=== PATIENT | female | born 1945 | race Two or more races ===

== ENCOUNTER → 2017-04-13 | Outpatient (CLI) | payer OTHER ==
[2017-04-13 14:28] LABS: ADD MAN DIFF? NO
[2017-04-13 14:34] LABS: BASO % 1 % (0-3); EOS # 0.1 x10^3/uL (0.0-0.7); EOS % 2 % (0-3); HEMATOCRIT 41.1 % (36.0-47.0); HEMOGLOBIN 13.8 g/dL (12.0-15.5); LYMPH # 1.1 x10^3/uL (1.0-4.8); LYMPH % 20 % (24-48); MEAN CORPUSCULAR HEMOGLOBIN 31 pg (25-35); MEAN CORPUSCULAR HGB CONC 34 g/dL (31-37); MEAN CORPUSCULAR VOLUME 91 fL (79-100); MONO # 0.6 x10^3/uL (0.0-1.1); MONO % 10 % (0-9); NEUT # 3.7 x10^3uL (1.8-7.7); NEUT % 67 % (31-73); PLATELET COUNT 211 x10^3/uL (140-400); RED BLOOD COUNT 4.53 x10^6/uL (3.50-5.40); RED CELL DISTRIBUTION WIDTH 13.9 % (11.5-14.5); WHITE BLOOD COUNT 5.5 x10^3/uL (4.0-11.0)
[2017-04-13 14:55] LABS: ALBUMIN 3.8 g/dL (3.4-5.0); ALBUMIN/GLOBULIN RATIO 0.9 (1.0-1.7); ALK PHOS 83 U/L (46-116); ALT (SGPT) 23 U/L (14-59); ANION GAP 9 (6-14); AST (SGOT) 18 U/L (15-37); BLOOD UREA NITROGEN 20 mg/dL (7-20); BUN/CREATININE RATIO 33 (6-20); CALCIUM 9.6 mg/dL (8.5-10.1); CARBON DIOXIDE 28 mmol/L (21-32); CHLORIDE 102 mmol/L (98-107); CREATININE 0.6 mg/dL (0.6-1.0); GFR 97.7; GLUCOSE 101 mg/dL (70-99); SODIUM 139 mmol/L (136-145); TOTAL BILIRUBIN 0.4 mg/dL (0.2-1.0); TOTAL PROTEIN 7.9 g/dL (6.4-8.2)
[2017-04-13 15:06] LABS: THYROID STIM HORMONE (TSH) 1.204 uIU/mL (0.358-3.74)
== END | disposition home or self-care (01) ==
LOC: LAB 14:15
DX: K62.5 Hemorrhage of anus and rectum (principal); R53.83 Other fatigue
CPT/HCPCS: 36415; 80053; 84443; 85025

== ENCOUNTER → 2017-05-06 | Outpatient (CLI) | payer OTHER, MEDICARE | END | disposition home or self-care (01) | LOC: MAMMO 09:45 | DX: Z12.31 Encounter for screening mammogram for malignant neoplasm of breast (principal) | CPT/HCPCS: 77063; 77067 ==

== ENCOUNTER 2017-07-02 07:13 | Inpatient (IN) | payer OTHER, MEDICARE ==
[2017-07-02 07:44] LABS: ADD MAN DIFF? NO
[2017-07-02 07:46] LABS: BASO % 1 % (0-3); EOS % 1 % (0-3); HEMATOCRIT 36.8 % (36.0-47.0); HEMOGLOBIN 12.5 g/dL (12.0-15.5); LYMPH # 0.4 x10^3/uL (1.0-4.8); LYMPH % 8 % (24-48); MEAN CORPUSCULAR HEMOGLOBIN 31 pg (25-35); MEAN CORPUSCULAR HGB CONC 34 g/dL (31-37); MEAN CORPUSCULAR VOLUME 90 fL (79-100); MONO # 0.6 x10^3/uL (0.0-1.1); MONO % 10 % (0-9); NEUT # 4.6 x10^3uL (1.8-7.7); NEUT % 81 % (31-73); PLATELET COUNT 197 x10^3/uL (140-400); RED CELL DISTRIBUTION WIDTH 13.7 % (11.5-14.5); WHITE BLOOD COUNT 5.7 x10^3/uL (4.0-11.0)
[2017-07-02 07:52] LABS: ANION GAP 10 (6-14); BLOOD UREA NITROGEN 16 mg/dL (7-20); BUN/CREATININE RATIO 23 (6-20); CALCIUM 8.4 mg/dL (8.5-10.1); CARBON DIOXIDE 27 mmol/L (21-32); CHLORIDE 105 mmol/L (98-107); CREATININE 0.7 mg/dL (0.6-1.0); GFR 81.8; GLUCOSE 118 mg/dL (70-99); POTASSIUM 3.6 mmol/L (3.5-5.1); SODIUM 142 mmol/L (136-145)
[2017-07-02 07:57] LABS: ALBUMIN/GLOBULIN RATIO 0.7 (1.0-1.7); ALK PHOS 83 U/L (46-116); ALT (SGPT) 45 U/L (14-59); AST (SGOT) 22 U/L (15-37); TOTAL BILIRUBIN 0.3 mg/dL (0.2-1.0); TOTAL PROTEIN 7.2 g/dL (6.4-8.2)
[2017-07-02 08:00] LABS: TROPONINI < 0.017 ng/mL (0.000-0.055)
[2017-07-02 08:03] LABS: NT-PRO BNP 1490 pg/mL (0-124)
[2017-07-02] MEDS ORDERED: CONTRAST GIVEN MC (08:15)
[2017-07-02] MEDS: IOHEXOL 300 MG/ML 100ML VIAL. IV (08:23)
[2017-07-02 08:53] LABS: INR 1.1 (0.8-1.1); PARTIAL THROMBOPLASTIN TIME 30 SEC (24-38); PROTHROMBIN TIME PATIENT 13.8 SEC (11.7-14.0)
[2017-07-02 09:17] LABS: BILIRUBIN,URINE NEGATIVE (NEG); CLARITY,URINE CLEAR; COLOR,URINE YELLOW; GLUCOSE,URINE 100 mg/dL (NEG); NITRITE,URINE NEGATIVE (NEG); PH,URINE 5.5; PROTEIN,URINE NEGATIVE (NEG-TRACE); UROBILINOGEN,URINE 0.2 mg/dL (0.2 mg/dL)
[2017-07-02 09:33] LABS: BACTERIA,URINE 0 /HPF (0-FEW); RBC,URINE 0 /HPF (0-2); SQUAMOUS EPITHELIAL CELL,UR MANY /LPF; WBC,URINE 0 /HPF (0-4)
[2017-07-02] MEDS ORDERED: ONDANSETRON PF 4 MG/2 ML VIAL. IV (10:00)
[2017-07-02] MEDS ORDERED: fentaNYL PF VIAL 100 MCG/2 ML VIAL IV (10:00)
[2017-07-02] MEDS ORDERED: ACETAMINOPHEN 325 MG TABLET. PO (10:00)
[2017-07-02 13:26] LABS: TROPONINI 0.022 ng/mL (0.000-0.055)
[2017-07-02] MEDS ORDERED: MORPHINE SULFATE 4 MG/ML DISP.SYRIN. IV (13:45)
[2017-07-02] MEDS ORDERED: DOCUSATE SODIUM 100 MG CAPSULE. PO (13:45)
[2017-07-02] MEDS ORDERED: hydrALAZINE 20 MG/ML VIAL. IVP (13:45)
[2017-07-02] MEDS ORDERED: ALBUTEROL SULFATE 2.5 MG/3 ML NEBU. NEB (13:45)
[2017-07-02] MEDS ORDERED: ALPRAZolam 0.25 MG TABLET PO (14:15)
[2017-07-02] MEDS: ENOXAPARIN 40 MG/0.4 ML SYRINGE. SQ (14:33)
[2017-07-02] MEDS: METOPROLOL TARTRATE 5 MG/5 ML VIAL. IVP (14:34)
[2017-07-02] MEDS: GADOBUTROL 7.5 MMOL/7.5 ML VIAL IV (15:47)
[2017-07-02] MEDS: IPRATRPIUM/ALBUTEROL 0.5/2.5MG 3 ML NEBU. NEB ×2 (16:10→19:40)
[2017-07-02] MEDS: traMADol 50 MG TABLET PO (16:11)
[2017-07-02 17:51] LABS: TROPONINI 0.021 ng/mL (0.000-0.055)
[2017-07-02] MEDS: METOPROLOL TART IMMED RELEASE 25 MG TABLET. PO (20:25)
[2017-07-02] MEDS: POLYETHYLENE GLYCOL 3350 17 GM PACKET. PO (20:25)
[2017-07-02] MEDS ORDERED: METOPROLOL TART IMMED RELEASE 25 MG TABLET. PO (21:00)
[2017-07-03 04:47] LABS: ADD MAN DIFF? NO
[2017-07-03 04:52] LABS: BASO % 1 % (0-3); EOS % 1 % (0-3); HEMATOCRIT 33.2 % (36.0-47.0); HEMOGLOBIN 11.4 g/dL (12.0-15.5); LYMPH # 0.6 x10^3/uL (1.0-4.8); LYMPH % 13 % (24-48); MEAN CORPUSCULAR HEMOGLOBIN 31 pg (25-35); MEAN CORPUSCULAR HGB CONC 35 g/dL (31-37); MEAN CORPUSCULAR VOLUME 90 fL (79-100); MONO # 0.6 x10^3/uL (0.0-1.1); MONO % 13 % (0-9); NEUT # 3.5 x10^3uL (1.8-7.7); NEUT % 72 % (31-73); PLATELET COUNT 182 x10^3/uL (140-400); RED CELL DISTRIBUTION WIDTH 13.3 % (11.5-14.5); WHITE BLOOD COUNT 4.9 x10^3/uL (4.0-11.0)
[2017-07-03 05:09] LABS: ANION GAP 9 (6-14); BLOOD UREA NITROGEN 11 mg/dL (7-20); CALCIUM 7.8 mg/dL (8.5-10.1); CARBON DIOXIDE 28 mmol/L (21-32); CHLORIDE 104 mmol/L (98-107); CREATININE 0.6 mg/dL (0.6-1.0); GFR 97.7; GLUCOSE 121 mg/dL (70-99); POTASSIUM 3.9 mmol/L (3.5-5.1); SODIUM 141 mmol/L (136-145)
[2017-07-03 05:28] LABS: THYROID STIM HORMONE (TSH) 1.223 uIU/mL (0.358-3.74)
[2017-07-03] MEDS: METOPROLOL TART IMMED RELEASE 25 MG TABLET. PO ×3 (07:04→23:27)
[2017-07-03] MEDS: IPRATRPIUM/ALBUTEROL 0.5/2.5MG 3 ML NEBU. NEB ×4 (08:10→20:03)
[2017-07-03] MEDS: POLYETHYLENE GLYCOL 3350 17 GM PACKET. PO ×2 (08:33→21:08)
[2017-07-03] MEDS: ENOXAPARIN 40 MG/0.4 ML SYRINGE. SQ (08:38)
[2017-07-03] MEDS: traMADol 50 MG TABLET PO (08:39)
[2017-07-03] MEDS: ONDANSETRON PF 4 MG/2 ML VIAL. IV (08:47)
[2017-07-03] MEDS: METOPROLOL TARTRATE 5 MG/5 ML VIAL. IVP (09:34)
[2017-07-03 10:03] LABS: MAGNESIUM 1.9 mg/dL (1.8-2.4)
[2017-07-03] MEDS: IOHEXOL 240 MG/ML 50ML VIAL. PO (10:15)
[2017-07-03] MEDS ORDERED: CONTRAST GIVEN MC (10:15)
[2017-07-03] MEDS: IOHEXOL 300 MG/ML 100ML VIAL. IV (11:32)
[2017-07-03] MEDS: PROCHLORPERAZINE 10 MG/2 ML VIAL. IV (11:52)
[2017-07-03] MEDS: DIGOXIN IV 500 MCG/2 ML AMPUL. IV (11:53)
[2017-07-03] MEDS: FUROSEMIDE 40 MG/4 ML VIAL. IVP (15:48)
[2017-07-03] MEDS: ASPIRIN ENTERIC COATED 325 MG TABLET.DR. PO (15:49)
[2017-07-04] MEDS: METOPROLOL TART IMMED RELEASE 25 MG TABLET. PO ×3 (06:32→18:04)
[2017-07-04 07:24] LABS: ADD MAN DIFF? NO
[2017-07-04 07:32] LABS: BASO % 1 % (0-3); EOS # 0.1 x10^3/uL (0.0-0.7); EOS % 2 % (0-3); HEMATOCRIT 36.7 % (36.0-47.0); HEMOGLOBIN 12.3 g/dL (12.0-15.5); LYMPH # 0.5 x10^3/uL (1.0-4.8); LYMPH % 9 % (24-48); MEAN CORPUSCULAR HEMOGLOBIN 30 pg (25-35); MEAN CORPUSCULAR HGB CONC 34 g/dL (31-37); MEAN CORPUSCULAR VOLUME 90 fL (79-100); MONO # 0.5 x10^3/uL (0.0-1.1); MONO % 11 % (0-9); NEUT # 3.7 x10^3uL (1.8-7.7); NEUT % 77 % (31-73); PLATELET COUNT 208 x10^3/uL (140-400); RED BLOOD COUNT 4.06 x10^6/uL (3.50-5.40); RED CELL DISTRIBUTION WIDTH 13.8 % (11.5-14.5); WHITE BLOOD COUNT 4.8 x10^3/uL (4.0-11.0)
[2017-07-04 07:51] LABS: ANION GAP 8 (6-14); BLOOD UREA NITROGEN 14 mg/dL (7-20); CALCIUM 8.2 mg/dL (8.5-10.1); CARBON DIOXIDE 31 mmol/L (21-32); CHLORIDE 101 mmol/L (98-107); CREATININE 0.8 mg/dL (0.6-1.0); GFR 70.1; GLUCOSE 125 mg/dL (70-99); POTASSIUM 3.5 mmol/L (3.5-5.1); SODIUM 140 mmol/L (136-145)
[2017-07-04] MEDS: IPRATRPIUM/ALBUTEROL 0.5/2.5MG 3 ML NEBU. NEB ×4 (08:04→20:39)
[2017-07-04] MEDS: POLYETHYLENE GLYCOL 3350 17 GM PACKET. PO ×2 (09:00→21:00)
[2017-07-04] MEDS: ENOXAPARIN 40 MG/0.4 ML SYRINGE. SQ (09:00)
[2017-07-04] MEDS: LIDOCAINE 2%/EPI 1:100,000 20 ML VIAL. IJ (09:30)
[2017-07-04] MEDS: REGADENOSON 0.4 MG/5 ML DISP.SYRIN. IV (10:48)
[2017-07-04] MEDS: ASPIRIN ENTERIC COATED 325 MG TABLET.DR. PO (13:33)
[2017-07-04] MEDS: FUROSEMIDE 40 MG/4 ML VIAL. IVP (13:45)
[2017-07-04 14:41] LABS: CHOLESTEROL 131 mg/dL (0-200); HDLC 39 mg/dL (40-60); LDLC 81 mg/dL (0-100); NON-HDL CHOLESTEROL 92 mg/dL (0-129); TRIGLYCERIDES 57 mg/dL (0-150); VLDLC 11 mg/dL (0-40)
[2017-07-04 14:42] LABS: CHOLESTEROL/HDL RATIO 3.4
[2017-07-04] MEDS: DIGOXIN IV 500 MCG/2 ML AMPUL. IV (18:04)
[2017-07-04] MEDS: APIXABAN 5 MG TABLET. PO (21:00)
[2017-07-05] MEDS: IPRATRPIUM/ALBUTEROL 0.5/2.5MG 3 ML NEBU. NEB ×4 (08:00→20:00)
[2017-07-05] MEDS: APIXABAN 5 MG TABLET. PO ×2 (08:17→19:11)
[2017-07-05] MEDS: POLYETHYLENE GLYCOL 3350 17 GM PACKET. PO ×2 (09:00→20:09)
[2017-07-05] MEDS: METOPROLOL TART IMMED RELEASE 25 MG TABLET. PO ×3 (09:27→20:08)
[2017-07-05] MEDS: ASPIRIN ENTERIC COATED 325 MG TABLET.DR. PO (09:27)
[2017-07-05] MEDS: traMADol 50 MG TABLET PO (09:27)
[2017-07-05] MEDS: FLECAINIDE ACETATE 50 MG TABLET. PO ×2 (12:28→20:09)
[2017-07-05] MEDS: ANTI-COAG MONITOR BY PHARMACY. MC (13:46)
[2017-07-05] MEDS: ACETAMINOPHEN 325 MG TABLET. PO (23:45)
[2017-07-06] MEDS ORDERED: PROCHLORPERAZINE 10 MG/2 ML VIAL. IV (07:00)
[2017-07-06] MEDS ORDERED: IV RINGERS,LACTATED 1000ML 1,000 ML IV (07:00)
[2017-07-06] MEDS ORDERED: LIDOCAINE 1% PF 2 ML VIAL. ID (07:00)
[2017-07-06] MEDS ORDERED: MORPHINE SULFATE 4 MG/ML DISP.SYRIN. IV (07:00)
[2017-07-06] MEDS ORDERED: HYDROmorphone 2 MG/ML VIAL IV (07:00)
[2017-07-06] MEDS ORDERED: fentaNYL PF VIAL 100 MCG/2 ML VIAL IV ×2 (07:00)
[2017-07-06] MEDS: IPRATRPIUM/ALBUTEROL 0.5/2.5MG 3 ML NEBU. NEB ×2 (07:52→11:53)
[2017-07-06] MEDS ORDERED: BENZOCAINE ONE 20% MUCOSAL SPRAY. MM (08:15)
[2017-07-06] MEDS: APIXABAN 5 MG TABLET. PO ×2 (09:00→12:35)
[2017-07-06] MEDS: FLECAINIDE ACETATE 50 MG TABLET. PO ×2 (09:12→12:37)
[2017-07-06] MEDS: METOPROLOL TART IMMED RELEASE 25 MG TABLET. PO (09:14)
[2017-07-06] MEDS: FUROSEMIDE 20 MG TABLET PO (09:14)
[2017-07-06] MEDS: POLYETHYLENE GLYCOL 3350 17 GM PACKET. PO (09:14)
[2017-07-06 12:22] LABS: ANION GAP 7 (6-14); BLOOD UREA NITROGEN 11 mg/dL (7-20); CALCIUM 8.5 mg/dL (8.5-10.1); CARBON DIOXIDE 31 mmol/L (21-32); CHLORIDE 102 mmol/L (98-107); CREATININE 0.7 mg/dL (0.6-1.0); GFR 81.8; GLUCOSE 114 mg/dL (70-99); SODIUM 140 mmol/L (136-145)
[2017-07-06] MEDS: LIDOCAINE 2% TOPICAL JELLY 5GM TUBE. TP (12:52)
[2017-07-06] MEDS: LIDOCAINE 2% VISCOUS 15 ML SOLUTION. SWSW (12:52)
[2017-07-06] MEDS ORDERED: FLECAINIDE ACETATE 50 MG TABLET. PO (21:00)
== END 2017-07-06 15:40 | disposition home or self-care (01) | DRG 308 ==
LOC: ER 07:13 → 6 SOUTH 09:31
PROC: 0GBG3ZX Excision of Left Thyroid Gland Lobe, Percutaneous Approach, Diagnostic (ICD-10-PCS; principal; 2017-07-04)
DX: I48.91 Unspecified atrial fibrillation (principal); I50.33 Acute on chronic diastolic (congestive) heart failure; I27.20 Pulmonary hypertension, unspecified; E44.1 Mild protein-calorie malnutrition; I08.2 Rheumatic disorders of both aortic and tricuspid valves; E04.1 Nontoxic single thyroid nodule; I11.0 Hypertensive heart disease with heart failure; R59.0 Localized enlarged lymph nodes; Z82.49 Family history of ischemic heart disease and other diseases of the circulatory system; Z68.30 Body mass index [BMI] 30.0-30.9, adult; Z87.891 Personal history of nicotine dependence; Z90.710 Acquired absence of both cervix and uterus
CPT/HCPCS: 36415; 60300; 70553; 71045; 71275; 74177; 76536; 76942; 78452; 80048; 80053; 80061; 81001; 83735; 83880; 84443; 84484; 85025; 85610; 85730; 93005; 93017; 93306; 93970; 94640; 94760; 94799; 96374; 96375; 96376; 97110-GP; 97162-GP; 97165-GO; 99285; 99285-25; A9500; A9585; J0780; J1160; J1650; J1940; J2405; J2785; J3490; J7620; Q9967

== ENCOUNTER 2017-07-07 10:34 | Emergency (ER) | payer OTHER, MEDICARE ==
[2017-07-07 11:12] LABS: ADD MAN DIFF? NO
[2017-07-07 11:15] LABS: BASO # 0.1 x10^3/uL (0.0-0.2); BASO % 1 % (0-3); EOS # 0.1 x10^3/uL (0.0-0.7); EOS % 1 % (0-3); HEMATOCRIT 38.3 % (36.0-47.0); HEMOGLOBIN 12.9 g/dL (12.0-15.5); LYMPH # 0.6 x10^3/uL (1.0-4.8); LYMPH % 7 % (24-48); MEAN CORPUSCULAR HEMOGLOBIN 30 pg (25-35); MEAN CORPUSCULAR HGB CONC 34 g/dL (31-37); MEAN CORPUSCULAR VOLUME 90 fL (79-100); MONO # 0.9 x10^3/uL (0.0-1.1); MONO % 12 % (0-9); NEUT # 6.2 x10^3uL (1.8-7.7); NEUT % 79 % (31-73); PLATELET COUNT 262 x10^3/uL (140-400); RED BLOOD COUNT 4.26 x10^6/uL (3.50-5.40); RED CELL DISTRIBUTION WIDTH 13.6 % (11.5-14.5); WHITE BLOOD COUNT 7.9 x10^3/uL (4.0-11.0)
[2017-07-07 11:24] LABS: ANION GAP 11 (6-14); BLOOD UREA NITROGEN 21 mg/dL (7-20); BUN/CREATININE RATIO 30 (6-20); CARBON DIOXIDE 27 mmol/L (21-32); CHLORIDE 100 mmol/L (98-107); CREATININE 0.7 mg/dL (0.6-1.0); GFR 81.8; GLUCOSE 123 mg/dL (70-99); POTASSIUM 4.2 mmol/L (3.5-5.1); SODIUM 138 mmol/L (136-145)
[2017-07-07 11:29] LABS: ALBUMIN 3.1 g/dL (3.4-5.0); ALBUMIN/GLOBULIN RATIO 0.7 (1.0-1.7); ALK PHOS 76 U/L (46-116); ALT (SGPT) 78 U/L (14-59); AST (SGOT) 36 U/L (15-37); MAGNESIUM 2.1 mg/dL (1.8-2.4); TOTAL BILIRUBIN 0.4 mg/dL (0.2-1.0); TOTAL PROTEIN 7.4 g/dL (6.4-8.2)
[2017-07-07 11:31] LABS: TROPONINI < 0.017 ng/mL (0.000-0.055)
[2017-07-07 11:37] LABS: CKMB INDEX 2.3 % (0-4); CKMB MASS 2.1 ng/mL (0.0-3.6); CREATINE KINASE 93 U/L (26-192)
[2017-07-07] MEDS: FUROSEMIDE 40 MG/4 ML VIAL. IVP (12:29)
== END 2017-07-07 15:00 | disposition home or self-care (01) ==
LOC: ER 10:34
DX: R00.2 Palpitations (principal); R06.02 Shortness of breath; I48.91 Unspecified atrial fibrillation; I11.0 Hypertensive heart disease with heart failure; I50.9 Heart failure, unspecified
CPT/HCPCS: 36415; 71045; 80053; 82553; 83735; 84484; 85025; 93005; 94618; 96374; 99285-25; J1940

== ENCOUNTER → 2017-08-03 | Outpatient (CLI) | payer OTHER, MEDICARE | END | disposition home or self-care (01) | LOC: PETSC 14:01 | DX: E04.1 Nontoxic single thyroid nodule (principal); I51.7 Cardiomegaly; R91.8 Other nonspecific abnormal finding of lung field; R16.1 Splenomegaly, not elsewhere classified | CPT/HCPCS: 78815; A9552 ==

== ENCOUNTER → 2017-10-04 | Outpatient (CLI) | payer OTHER, MEDICARE ==
[2017-10-04 13:50] LABS: ADD MAN DIFF? NO
[2017-10-04 13:54] LABS: BASO % 1 % (0-3); EOS # 0.1 x10^3/uL (0.0-0.7); EOS % 3 % (0-3); HEMATOCRIT 38.6 % (36.0-47.0); LYMPH # 0.6 x10^3/uL (1.0-4.8); LYMPH % 17 % (24-48); MEAN CORPUSCULAR HEMOGLOBIN 30 pg (25-35); MEAN CORPUSCULAR HGB CONC 34 g/dL (31-37); MEAN CORPUSCULAR VOLUME 89 fL (79-100); MONO # 0.5 x10^3/uL (0.0-1.1); MONO % 13 % (0-9); NEUT # 2.5 x10^3uL (1.8-7.7); NEUT % 66 % (31-73); PLATELET COUNT 176 x10^3/uL (140-400); RED BLOOD COUNT 4.34 x10^6/uL (3.50-5.40); RED CELL DISTRIBUTION WIDTH 16.1 % (11.5-14.5); WHITE BLOOD COUNT 3.8 x10^3/uL (4.0-11.0)
[2017-10-04 14:05] LABS: INR 1.2 (0.8-1.1); PARTIAL THROMBOPLASTIN TIME 31 SEC (24-38); PROTHROMBIN TIME PATIENT 14.4 SEC (11.7-14.0)
[2017-10-04 14:14] LABS: ANION GAP 5 (6-14); BLOOD UREA NITROGEN 31 mg/dL (7-20); CALCIUM 8.9 mg/dL (8.5-10.1); CARBON DIOXIDE 30 mmol/L (21-32); CHLORIDE 103 mmol/L (98-107); CREATININE 0.9 mg/dL (0.6-1.0); GFR 61.2; GLUCOSE 154 mg/dL (70-99); SODIUM 138 mmol/L (136-145)
== END | disposition home or self-care (01) ==
LOC: SURGPAT 13:27
DX: Z01.818 Encounter for other preprocedural examination (principal); I11.0 Hypertensive heart disease with heart failure; I50.9 Heart failure, unspecified; Z87.891 Personal history of nicotine dependence; Z68.30 Body mass index [BMI] 30.0-30.9, adult; Z90.710 Acquired absence of both cervix and uterus; Z82.49 Family history of ischemic heart disease and other diseases of the circulatory system
CPT/HCPCS: 36415; 80048; 85025; 85610; 85730

== ENCOUNTER → 2017-10-16 | Day surgery (SDC) | payer OTHER, MEDICARE ==
[~2017-10-16] VITALS: Ht 162.6 cm; Wt 71.7 kg
[~2017-10-16] MED LIST: APIX5TAB PO; BUPIVACAINE 0.5% 50 ML VIAL. ONE; DEXAMETHASONE SOD PHOS 20 MG/5 ML VIAL. ONE; FAMOTIDINE 20 MG/2 ML VIAL ONE; FLEC50TA PO; FURO20TA3 PO; GLYCOPYRROLATE 1 MG/5 ML VIAL. ONE; IV RINGERS,LACTATED 1000ML 1,000 ML IV SCH; LIDOCAINE 1% Multi-Dose 20 ML VIAL. INJ ONE; LIDOCAINE 1% PF 2 ML VIAL. ID PRN; LIDOCAINE 2% PF 2ML VIAL. ONE; LIDOCAINE 2% PF Vial for OR 5 ML VIAL. ONE; METO25TA4 PO; MIDAZOLAM HCL/PF 2 MG/2 ML VIAL. ONE; MORPHINE SULFATE 2 MG/ML VIAL. IV PRN; NEOSTIGMINE METHYLSULFATE 5 MG/5 ML SYRINGE. ONE; ONDANSETRON PF 4 MG/2 ML VIAL. IV PRN; ONDANSETRON PF 4 MG/2 ML VIAL. ONE; PHENYLEPHRINE in 0.9% NACL PF 1 MG/10 ML SYRINGE. IV ONE; POTA20TA4 PO; PROCHLORPERAZINE 10 MG/2 ML VIAL. IV PRN; PROCHLORPERAZINE 10 MG/2 ML VIAL. ONE; PROPOFOL 20 ML IV ONE; ROCURONIUM 50 MG/5 ML VIAL. ONE; SCOPOLAMINE 1.5MG PATCH. TD ONE; SEVOFLURANE 61 TO 120 MINUTES. IH ONE; UBID50TA PO; VIT1TABL32 PO; fentaNYL PF VIAL 100 MCG/2 ML VIAL IV PRN; fentaNYL PF VIAL 100 MCG/2 ML VIAL ONE
--- NOTE | 2017-10-16 12:53 | PDOC ---
BRIEF OPERATIVE NOTE Date: Oct 16, 2017 Pre-Op Diagnosis Mediastinal adenopathy Large substernal goiter Post-Op Diagnosis Mediastinal adenopathy Large substernal goiter Procedure Performed Mediastinoscopy (attempted)-neck exploration Surgeon Becky Nichols MD [facility] [employer] RILEY Franco Anesthesiologist Juan Dye MD Anesthesia Type: General Blood Loss minimal IV Fluid N/A Urine Output N/A Specimens Obtained None Findings Massive substernal goiter Unable to assess the mediastinum owing to goiter Complications None BECKY NICHOLS MD Oct 16, 2017 12:53
--- NOTE | 2017-10-16 12:58 | PDOC4 ---
Operative Note Operative Note Date Oct 16, 2017 Preoperative diagnosis Mediastinal adenopathy Large substernal goiter Postoperative diagnosis Mediastinal adenopathy Large substernal goiter Procedure performed Mediastinoscopy (attempted)-neck exploration Surgeon Becky Nichols MD [employer] RILEY Franco Anesthesiologist Juan Dye MD Anesthesia type General Blood loss minimal IV fluid N/A Urine output N/A Specimens obtained None Findings Massive substernal goiter Unable to assess the mediastinum owing to goiter Complications None Indication The patient is a 72 year old female who was found to have mediastinal adenopathy on CT, with mild FDG avidity on subsequent PET. She also has a hx of a thyroid mass, which was biopsied. Pathology was benign. A mediastinoscopy was indicated. The risks, benefits and limitations were explained to the patient who agreed to proceed. Informed consent was obtained. Operation The patient was seen in the preoperative area where her ID was confirmed using two unique identifies. She was then transferred to the operating room and placed supine on the operating table. An a-line was placed by the anesthesiologist. Anesthesia was induced and the airway was secured with an ET tube. The anterior neck and chest were prepped and draped in usual sterile surgical fashion. A timeout was then performed. I initially made a 3 cm incision , two breaths above the sternal notch. The incision was deepened down through the platysma and subcutaneous tissues. The strap muscles were divided bluntly at the median raphe. I then came across a very large thyroid goiter which was extremely vascularized. The patient is known to have a large substernal goiter. I tried mobilizing the goiter, but was unable to gain access to the trachea, without causing significant hemorrhage. Owing to my inability to obtain access to the pretracheal area, in conjunction with the large substernal component of the goiter, which would simply complicate a mediastinoscopy, I decided to abort the procedure. The strap muscles were reapproximated with 2-0 Vicryl. Subcutaneous tissues were closed with 3-0 Vicryl and 4-0 Monocryl was used for the epidermis. Dermabond was applied onto the incision. At the end of procedure the instrument, sponge and needle counts were correct. Anesthesia was reversed, the patient was extubated and transferred to the PACU in stable condition having tolerated the procedure well. The patient's family was updated. BECKY NICHOLS MD Oct 16, 2017 12:58
[2017-10-16 14:45] VITALS: BP 110/65
== END | disposition home or self-care (01) ==
LOC: SURG 08:45
PROVIDERS: ATTEND Thoracic Surgery (Cardiothoracic Vascular Surgery)
DX: E04.1 Nontoxic single thyroid nodule (principal); Z53.9 Procedure and treatment not carried out, unspecified reason; R59.0 Localized enlarged lymph nodes
CPT/HCPCS: 36415; 39402; 86850; 86900; 86901; J0690; J0780; J1100; J2001; J2250; J2370; J2405; J2704; J2710; J3010; J3490; S0028; A7015

== ENCOUNTER → 2017-11-03 | Outpatient (CLI) | payer OTHER, MEDICARE ==
[2017-10-16 14:45] VITALS: BP 110/65
[~2017-11-03] MED LIST changes: -BUPIVACAINE 0.5% 50 ML VIAL. ONE; -DEXAMETHASONE SOD PHOS 20 MG/5 ML VIAL. ONE; -FAMOTIDINE 20 MG/2 ML VIAL ONE; -GLYCOPYRROLATE 1 MG/5 ML VIAL. ONE; -IV RINGERS,LACTATED 1000ML 1,000 ML IV SCH; -LIDOCAINE 1% Multi-Dose 20 ML VIAL. INJ ONE; -LIDOCAINE 1% PF 2 ML VIAL. ID PRN; -LIDOCAINE 2% PF 2ML VIAL. ONE; -LIDOCAINE 2% PF Vial for OR 5 ML VIAL. ONE; -MIDAZOLAM HCL/PF 2 MG/2 ML VIAL. ONE; -MORPHINE SULFATE 2 MG/ML VIAL. IV PRN; -NEOSTIGMINE METHYLSULFATE 5 MG/5 ML SYRINGE. ONE; -ONDANSETRON PF 4 MG/2 ML VIAL. IV PRN; -ONDANSETRON PF 4 MG/2 ML VIAL. ONE; -PHENYLEPHRINE in 0.9% NACL PF 1 MG/10 ML SYRINGE. IV ONE; -PROCHLORPERAZINE 10 MG/2 ML VIAL. IV PRN; -PROCHLORPERAZINE 10 MG/2 ML VIAL. ONE; -PROPOFOL 20 ML IV ONE; -ROCURONIUM 50 MG/5 ML VIAL. ONE; -SCOPOLAMINE 1.5MG PATCH. TD ONE; -SEVOFLURANE 61 TO 120 MINUTES. IH ONE; -fentaNYL PF VIAL 100 MCG/2 ML VIAL IV PRN; -fentaNYL PF VIAL 100 MCG/2 ML VIAL ONE
[2017-11-03] MEDS: IOHEXOL 300 MG/ML 100ML VIAL. IV ONE (08:43)
--- NOTE | 2017-11-03 11:19 | RAD ---
CT CHEST W/CONTRAST Indication: Lung nodule Technique: Postcontrast CT imaging was performed of the chest, multiplanar reconstruction images submitted. One or more of the following individualized dose reduction techniques were utilized for this examination: 1. Automated exposure control 2. Adjustment of the mA and/or kV according to patient size 3. Use of iterative reconstruction technique. Contrast: 75 cc Omnipaque 300 Comparison: July 02, 2017 chest CTA Findings: Mediastinal and hilar lymphadenopathy has decreased. Largest residual right pretracheal nodes measures about 1.3 cm short axis dimension, previously about 2.2 cm in similar measurement planes. Largest residual left hilar node measures about 0.7 cm short axis dimension. There are some calcified hilar and mediastinal nodes as seen previously. Previously seen pleural effusions have resolved. There is calcified left lower lobe nodule as seen previously. There is no new lobar consolidation. There is mild mosaic attenuation of the lung parenchyma most of the lower lobes bilaterally although less prominent. Previously seen right upper lobe nodule axial image 30 series 2 is less prominent at 0.5 cm versus previously about 0.8 cm. There are a few other tiny nodules along the minor fissure and the right upper lobe as best seen axial image 29 series 2 overall smaller, largest of these about 0.3 cm. Left lower lobe nodule axial image 126 up to 0.4 cm previously measured about 0.6 cm. There is no new significant pulmonary nodularity. There is multilevel thoracic spondylosis. Thoracic aortic caliber is within normal limits without intraluminal flap. There is no new pericardial effusion. Heart is enlarged. There is small fat-containing right Bochdalek hernia. There is again partially calcified left thyroid mass with intrathoracic extent similar in size, bowel 3.3 cm AP by 3.3 cm transverse. There is coronary calcification. There is again splenomegaly. There may be left pelvocaliectasis or hydronephrosis not fully evaluated. There are mild low-density in the lumen of the limited visualized portal vein. There is retroaortic left renal vein. IMPRESSION: 1. Previously seen mediastinal and hilar lymphadenopathy has decreased, also smaller pulmonary nodules, no new pulmonary nodularity. There is again splenomegaly. Previously seen pleural effusions have resolved. 2. There is coronary calcification. 3. As seen at the inferior aspect of exam, there is some low density in the lumen of the portal vein. This could be due to mixing of contrast with nonopacified blood although thrombus not excludable by this exam. 4. There is again partially calcified left thyroid mass with intrathoracic extent. Electronically signed by: Sherman Montero MD (11/03/2017 11:16 AM) [facility]
== END | disposition home or self-care (01) ==
LOC: CT 08:00
PROVIDERS: ATTEND Internal Medicine Critical Care Medicine
DX: I25.10 Atherosclerotic heart disease of native coronary artery without angina pectoris (principal); E07.89 Other specified disorders of thyroid; I11.0 Hypertensive heart disease with heart failure; I50.33 Acute on chronic diastolic (congestive) heart failure; R16.1 Splenomegaly, not elsewhere classified; R91.8 Other nonspecific abnormal finding of lung field; Z90.710 Acquired absence of both cervix and uterus; Z82.49 Family history of ischemic heart disease and other diseases of the circulatory system
CPT/HCPCS: 71260; Q9967

== ENCOUNTER → 2018-01-12 | Outpatient (CLI) | payer OTHER, MEDICARE ==
[2017-10-16 14:45] VITALS: BP 110/65
[2018-01-12 09:08] LABS: BASO % 1 % (0-3); EOS # 0.1 x10^3/uL (0.0-0.7); EOS % 1 % (0-3); HEMATOCRIT 40.9 % (36.0-47.0); HEMOGLOBIN 13.6 g/dL (12.0-15.5); LYMPH # 0.7 x10^3/uL (1.0-4.8); LYMPH % 13 % (24-48); MEAN CORPUSCULAR HEMOGLOBIN 30 pg (25-35); MEAN CORPUSCULAR HGB CONC 33 g/dL (31-37); MEAN CORPUSCULAR VOLUME 91 fL (79-100); MONO # 0.6 x10^3/uL (0.0-1.1); MONO % 11 % (0-9); NEUT % 75 % (31-73); PLATELET COUNT 201 x10^3/uL (140-400); RED BLOOD COUNT 4.52 x10^6/uL (3.50-5.40); RED CELL DISTRIBUTION WIDTH 14.2 % (11.5-14.5); WHITE BLOOD COUNT 5.3 x10^3/uL (4.0-11.0)
[2018-01-12 09:38] LABS: ALBUMIN 3.6 g/dL (3.4-5.0); ALBUMIN/GLOBULIN RATIO 0.9 (1.0-1.7); CALCIUM 9.1 mg/dL (8.5-10.1); CREATININE 0.8 mg/dL (0.6-1.0); GFR 70.1; POTASSIUM 4.5 mmol/L (3.5-5.1); TOTAL BILIRUBIN 0.4 mg/dL (0.2-1.0); TOTAL PROTEIN 7.4 g/dL (6.4-8.2)
== END | disposition home or self-care (01) ==
LOC: LAB 08:49
PROVIDERS: ATTEND Internal Medicine Cardiovascular Disease
DX: I48.0 Paroxysmal atrial fibrillation (principal)
CPT/HCPCS: 36415; 80053; 85025

== ENCOUNTER → 2018-01-19 | Day surgery (SDC) | payer OTHER, MEDICARE ==
[~2018-01-19] MED LIST changes: +HYDROmorphone 2 MG/ML VIAL IV PRN; +IV RINGERS,LACTATED 1000ML 1,000 ML IV SCH; +LIDOCAINE 1% PF 2 ML VIAL. ID PRN; +LIDOCAINE 1% PF 2 ML VIAL. ONE; +MORPHINE SULFATE 2 MG/ML VIAL. IV PRN; +PROCHLORPERAZINE 10 MG/2 ML VIAL. IV PRN; +PROPOFOL 20 ML IV ONE; +fentaNYL PF VIAL 100 MCG/2 ML VIAL IV PRN
[2018-01-19 08:27] VITALS: BP 169/74
--- NOTE | 2018-01-23 14:11 | PATHOLOGY ---
[facility] Accession Number: [id number] . 01 Material submitted: . DESCENDING COLON POLYP . 01 Clinical history: . GI bleed, pending polyp, diverticulosis. . 02 Diagnosis: Colon biopsy, descending colon polyp: - Inflamed hyperplastic polyp showing surface erosion and acute and chronic inflammation. (JPM:stacey; 01/22/2018) QMS/01/23/2018 . 02 Comment: There are no adenomatous changes or evidence of malignancy. . 02 Electronically signed: . Christofer Khan MD, Pathologist NPI- [id number] . 01 Gross description: . Received in formalin labeled "Coffee, Stacey, descending colon polyp" is a 0.5 x 0.5 x 0.4 cm hawkins-brown nodule. The resection margin is inked black. The specimen is bisected and submitted in cassette A1. ([facility]; 01/20/2018) SYC/SYC . 02 Microscopic: . . . 02 Pathologist provided ICD-10: K63.5, K52.9 . 02 CPT . 355625 Specimen Comment: A courtesy copy of this report has been sent to Specimen Comment: [phone], . Specimen Comment: Report sent to / DR MTZ Performed at: 01 [facility] [address], [place] [id number] MD Kali Lao MD Phone: [phone] Performed at: 02 [facility] [place] [address] [place], [place] [id number] MD Christofer Khan MD Phone: [phone]
== END | disposition home or self-care (01) ==
LOC: ENDOS 06:22
PROVIDERS: ATTEND Internal Medicine Gastroenterology
DX: K63.5 Polyp of colon (principal); K57.30 Diverticulosis of large intestine without perforation or abscess without bleeding; K64.0 First degree hemorrhoids; K52.89 Other specified noninfective gastroenteritis and colitis; I10 Essential (primary) hypertension; Z72.89 Other problems related to lifestyle; Z87.891 Personal history of nicotine dependence; Z79.899 Other long term (current) drug therapy; Z90.49 Acquired absence of other specified parts of digestive tract; Z90.710 Acquired absence of both cervix and uterus; Z98.890 Other specified postprocedural states
CPT/HCPCS: 45385; 88305; J2704; 45380

== ENCOUNTER 2018-05-16 08:15 | Emergency (ER) | payer OTHER, MEDICARE ==
[~2018-05-16] VITALS: Ht 162.6 cm; Wt 74.4 kg
[~2018-05-16 08:15] MED LIST changes: -HYDROmorphone 2 MG/ML VIAL IV PRN; -IV RINGERS,LACTATED 1000ML 1,000 ML IV SCH; -LIDOCAINE 1% PF 2 ML VIAL. ID PRN; -LIDOCAINE 1% PF 2 ML VIAL. ONE; -MORPHINE SULFATE 2 MG/ML VIAL. IV PRN; -PROCHLORPERAZINE 10 MG/2 ML VIAL. IV PRN; -PROPOFOL 20 ML IV ONE; -fentaNYL PF VIAL 100 MCG/2 ML VIAL IV PRN
[2018-05-16 08:24] VITALS: BP 159/72
--- NOTE | 2018-05-16 09:02 | RAD ---
4 view right knee dated 05/16/2018. No comparison available. Clinical indication: Pain. FINDINGS: 4 view right knee show normal bony alignment. No displaced fracture. No acute osseous or articular abnormality. There is a small loose body at the medial joint space measuring about 4 mm. Minimal tricompartmental hypertrophic change. No significant joint effusion. Mild lateral patellar subluxation on the sunrise view. IMPRESSION: 1. No acute bony abnormality. 2. Small loose body at the medial joint space. 3. Minimal tricompartmental degenerative change with mild lateral patellar subluxation. Electronically signed by: Mack Crespo MD (05/16/2018 9:00 AM) [facility]
[2018-05-16] MEDS ORDERED: DICL100G18 TP (09:32)
--- NOTE | 2018-05-16 09:32 | PHYS DOC ---
Past Medical History Past Medical History: A-Fib Past Surgical History: Hysterectomy Alcohol Use: None Drug Use: None Adult General Chief Complaint Chief Complaint: KNEE INJURY HPI HPI Patient is a 73 year old female with history of A. fib who presents to the ED today complaining of mild to moderate right posterior knee pain that began yesterday, patient states she made a step up with her right leg and heard a pop sound from the right knee. Denies falling. Patient states her pain is worse on certain movements but she is able to ambulate. Patient denies any numbness or tingling to the right lower extremity. She states she has not taken anything specifically to relieve the pain. 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 Review of Systems Review of Systems Constitutional: Denies fever or chills [] Musculoskeletal: Reports right knee pain Integument: Denies rash or skin lesions [] Neurologic: Denies headache, focal weakness or sensory changes [] All other systems were reviewed and found to be within normal limits, except as documented in this note. Allergies Allergies Allergies Coded Allergies Type Severity Reaction Last Updated Verified No Known Drug Allergies 01/19/18 No Physical Exam Physical Exam Constitutional: Well developed, well nourished, no acute distress, non-toxic appearance. [] Skin: Warm, dry, no erythema, no rash. [] Back: No tenderness, no CVA tenderness. [] Extremities: Right knee with no obvious deformity. No obvious edema or ecchymosis. No tenderness on exam, full range of motion to the right knee, no laxity, negative Karsten sign, negative Tara sign, negative anterior- posterior drawer sign. +2 right pedal pulse. Cap refill less than 2 seconds the right lower extremity. Sensation intact Neurologic: Alert and oriented X 3, normal motor function, normal sensory function, no focal deficits noted. [] Psychologic: Affect normal, judgement normal, mood normal. [] Current Patient Data Vital Signs Vital Signs Date Time Temp Pulse Resp B/P (MAP) Pulse Ox O2 Delivery O2 Flow Rate FiO2 05/16/18 08:24 97.9 60 17 159/72 (101) 96 Room Air 97.9 EKG EKG [] Radiology/Procedures Radiology/Procedures []PROCEDURE: KNEE RIGHT 4V 4 view right knee dated 05/16/2018. No comparison available. Clinical indication: Pain. FINDINGS: 4 view right knee show normal bony alignment. No displaced fracture. No acute osseous or articular abnormality. There is a small loose body at the medial joint space measuring about 4 mm. Minimal tricompartmental hypertrophic change. No significant joint effusion. Mild lateral patellar subluxation on the sunrise view. IMPRESSION: 1. No acute bony abnormality. 2. Small loose body at the medial joint space. 3. Minimal tricompartmental degenerative change with mild lateral patellar subluxation. Electronically signed by: Mack Crespo MD (05/16/2018 9:00 AM) [facility] DICTATED and SIGNED BY: MACK CRESPO MD DATE: 05/16/18 0900 Course & Med Decision Making Course & Med Decision Making Pertinent Labs and Imaging studies reviewed. (See chart for details) This is a 73-year-old female patient who presents to the ED today complaining of right knee pain that began yesterday when she attempted to walk up a step. Right knee x-rays interpreted by radiologist were negative for any acute findings. Noted for small loose body of the medial joint space, noted for minimal tricompartmental degenerative changes with mild patellar subluxation. Jonny bandage applied to the patient's right knee. Not able to fit in an immobilizer. Provided orthopedic doctor for follow-up. Voltaren cream prescription provided. Ice elevation encouraged [place]ez Disclaimer [place] Disclaimer This electronic medical record was generated, in whole or in part, using a voice recognition dictation system. Departure Departure Impression: Primary Impression: Right knee sprain Additional Impression: Right knee DJD Disposition: HOME, SELF-CARE Condition: STABLE Referrals: LETICIA MTZ MD (PCP) AKIN PAK MD follow up in 1 week Patient Instructions: Arthritis, Degenerative-Brief, Knee Pain, [id number] Additional Instructions: You have been evaluated in the ED for right knee pain. Try to wear the Jonny bandage provided as tolerated. Ice and elevate the extremity. Use the prescribed medication as ordered. Contact the provided orthopedic doctor today and set up a follow-up appointment. Scripts Diclofenac Sodium (VOLTAREN) 100 Gm Gel..gram. 1 GM TP QID, #100 GM 2 Refills Prov: GLADYS [employer]ON METAL INSPECTOR 05/16/18 Problem Qualifiers Primary Impression: Right knee sprain Encounter type: initial encounter Involved ligament of knee: unspecified ligament Qualified Codes: S83.91XA - Sprain of unspecified site of right knee , initial encounter Additional Impression: Right knee DJD Osteoarthritis type: unspecified Qualified Codes: M17.11 - Unilateral primary osteoarthritis, right knee GLADYS [employer] MET[employer] INSPECTOR May 16, 2018 09:32
== END 2018-05-16 09:51 | disposition home or self-care (01) ==
LOC: ER 08:15
DX: S83.91XA Sprain of unspecified site of right knee, initial encounter (principal); M17.11 Unilateral primary osteoarthritis, right knee; I48.91 Unspecified atrial fibrillation; Z90.710 Acquired absence of both cervix and uterus; X50.9XXA Other and unspecified overexertion or strenuous movements or postures, initial encounter; Y93.89 Activity, other specified; Y92.89 Other specified places as the place of occurrence of the external cause; Y99.8 Other external cause status
CPT/HCPCS: 73564; 99283

== ENCOUNTER → 2018-05-21 | Outpatient (CLI) | payer OTHER, MEDICARE ==
[2018-05-16 08:24] VITALS: BP 159/72
[~2018-05-21] MED LIST changes: +DICL100G18 TP; +HYDR-2765 PO; +ONDA4TAB7 PO
--- NOTE | 2018-05-21 17:26 | RAD ---
EXAM: MRI RIGHT KNEE DATE: 05/21/2018 2:45 PM CLINICAL INDICATION: RIGHT KNEE PAIN, HEARD POP IN POSTERIOR KNEE 1 WEEK COMPARISON: Radiographs 05/16/2018 TECHNIQUE: Multiplanar, multisequence MRI of the right knee was performed without contrast. FINDINGS: Small right knee joint effusion. Small Reddy's cyst. The ACL and PCL are intact. The MCL is intact. However there is mild edema within the intact vastus medialis obliquus consistent with strain. The medial retinaculum remains intact however there is mild thickening with moderate associated edema suggesting low-grade sprain. The fibular collateral ligament, biceps femoris and IT band are intact. The popliteus tendon is normal in signal and morphology. The extensor mechanism is intact. Borderline lateral patellar tracking. 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 Medial meniscus: Full-thickness tear at the posterior horn/root attachment of the medial meniscus consistent with full-thickness radial tear. There is approximately 6 mm extrusion of the body segment of the medial meniscus. Lateral meniscus: Intact. Full-thickness cartilage defect at the medial patellar facet measures 7 mm with trace subchondral edema. Otherwise no definite full-thickness cartilage defect. No significant marrow edema/bone contusion or fracture is identified. No osteonecrosis. IMPRESSION: 1. Full-thickness radial tear at the posterior horn-root attachment medial meniscus with extrusion of the body segment. 2. Edema within the vastus medialis obliquus likely low-grade strain. In addition edema within the medial retinacular structures without full-thickness tear, likely low-grade sprain. No definite patellar or femoral contusion pattern is identified. 3. 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 Electronically signed by: Germain Valiente MD (05/21/2018 5:23 PM) [facility]
== END | disposition home or self-care (01) ==
LOC: MRI 12:46
PROVIDERS: ATTEND Orthopaedic Surgery
DX: S83.241A Other tear of medial meniscus, current injury, right knee, initial encounter (principal); M22.41 Chondromalacia patellae, right knee; M25.461 Effusion, right knee; M71.21 Synovial cyst of popliteal space [Baker], right knee; R60.0 Localized edema; X58.XXXA Exposure to other specified factors, initial encounter; Y93.89 Activity, other specified; Y92.89 Other specified places as the place of occurrence of the external cause; Y99.8 Other external cause status
CPT/HCPCS: 73721

== ENCOUNTER 2018-05-30 11:25 | Day surgery (SDC) | payer OTHER, MEDICARE ==
[~2018-05-30] VITALS: Ht 162.6 cm; Wt 76.2 kg
[~2018-05-30 11:25] MED LIST changes: +BUPIVACAINE-EPI 0.25%-1:200000 MPF 30 ML VIAL. ONE; +DEXAMETHASONE SOD PHOS 20 MG/5 ML VIAL. ONE; +EPINEPHrine VIAL 30 MG/30 ML VIAL ONE; -HYDR-2765 PO; +HYDROmorphone 2 MG/ML VIAL IV PRN; +IV RINGERS,LACTATED 1000ML 1,000 ML IV SCH; +LIDOCAINE 2% PF 5 ML VIAL. ONE; +MORPHINE SULFATE 2 MG/ML VIAL. IV PRN; -ONDA4TAB7 PO; +ONDANSETRON PF 4 MG/2 ML VIAL. ONE; +PROCHLORPERAZINE 10 MG/2 ML VIAL. IV PRN; +PROPOFOL 20 ML IV ONE; +ceFAZolin 2GM PREMIX 2 GM/50 ML BAG IV ONE; +fentaNYL PF VIAL 100 MCG/2 ML VIAL IV PRN
[2018-05-30] MEDS ORDERED: [UNRECOGNIZED DRUG - OTHER] INJ ONE (13:16)
[2018-05-30] MEDS ORDERED: fentaNYL PF VIAL 100 MCG/2 ML VIAL ONE (13:18)
[2018-05-30] MEDS ORDERED: SEVOFLURANE 61 TO 120 MINUTES. IH ONE (13:52)
[2018-05-30] MEDS ORDERED: BUPIVACAINE-EPI 0.25%-1:200000 MPF 30 ML VIAL. INJ ONE (13:59)
--- NOTE | 2018-05-30 14:25 | PDOC4 ---
Operative Note Operative Note Date of Procedure: May 30, 2018 Preoperative Diagnosis: right knee medial meniscus tear Postoperative Diagnosis: 1. complex tear medial meniscus, current injury, right knee, initial encounter, S83.231A 2. complex tear of lateral meniscus, current injury, right knee, initial encounter, S83.271A Procedures Performed: right knee arthroscopy, surgical, with meniscectomy, medial AND lateral, including meniscal shaving, including debridement/shaving of articular cartilage (chondroplasty) CPT 35067 Surgeon: Akin Aguero MD Anesthesia: General Estimated Blood Loss: 5 mL Specimens: none Drains: none Complications: none Tourniquet time: 28 minutes Indications for Procedure: The patient is a 73-year-old with right knee pain, unrelieved with nonoperative treatment. Exam and MRI are consistent with a meniscus tear. We talked about the risks and benefits of proceeding with an arthroscopic procedure. We talked about potential risks of ongoing pain, progressive arthritis, bleeding, infection, blood clots, or other potential surgical or anesthetic complications. All of the patient's questions about surgery were answered and they desired to proceed. Written consent was obtained. Description of Operation: The patient was identified in the preoperative holding area. The correct right knee was marked by me. The patient was taken to the operating room, where a general anesthetic was used. Preoperative antibiotics were given intravenously. A time-out procedure was performed. A tourniquet was placed on the upper thigh. Local anesthetic with epinephrine was injected under sterile technique into the knee joint. The limb was prepared in sterile fashion, and sterile drapes were applied. The limb was exsanguinated with an Esmarch bandage and the tourniquet was inflated to 350 mm Hg. Lateral and medial arthroscopy portals were established. The medial meniscus showed a posterior horn tear with unstable flaps. A meniscectomy was performed with basket forceps and the motorized shaver back to a smooth stable base, and the resection tapered into the middle one-third of the meniscus.The medial tibiofemoral joint showed chondromalacia Outerbridge grade II, so a shaving chondroplasty was performed removing loose unstable fragments of articular cartilage.The intercondylar notch was free of loose bodies, and the ACL was intact. The lateral tibiofemoral joint showed an anterior horn lateral meniscus tear, and a meniscectomy was performed with basket forceps and the motorized shaver back to a smooth stable base.The lateral articular surfaces showed chondromalacia Outerbridge grade III, and a shaving chondroplasty was performed removing unstable fragments of cartilage with the shaver. The patellofemoral joint showed chondromalacia Outerbridge grade I, so no chondroplasty was required. The suprapatellar pouch, medial and lateral gutters were free of loose bodies. Copious irrigation was used to drain all meniscal and chondral fragments, and the knee was drained of fluid. The portal incisions were closed with 3-0 Prolene interrupted sutures. Additional local anesthetic 30 mL of 0.25% bupivacaine with epinephrine was injected. A bulky sterile dressing was applied and the tourniquet was released. Needle and sponge counts were correct and there were no apparent complications. AKIN AGUERO MD May 30, 2018 14:25
[2018-05-30] MEDS ORDERED: PROCHLORPERAZINE 10 MG/2 ML VIAL. ONE (14:37)
[2018-05-30] MEDS ORDERED: ONDA4TAB7 PO (14:50)
[2018-05-30] MEDS ORDERED: HYDR-2765 PO (14:50)
[2018-05-30] MEDS ORDERED: HYDROcodone/APAP 7.5/325MG 1 TAB TABLET PO ONE ×2 (15:00)
[2018-05-30 16:30] VITALS: BP 160/68
== END 2018-05-30 16:30 | disposition home or self-care (01) ==
LOC: SURG 11:25
PROVIDERS: ATTEND Orthopaedic Surgery
DX: S83.231A Complex tear of medial meniscus, current injury, right knee, initial encounter (principal); S83.271A Complex tear of lateral meniscus, current injury, right knee, initial encounter; M94.261 Chondromalacia, right knee; I48.0 Paroxysmal atrial fibrillation; I11.0 Hypertensive heart disease with heart failure; I50.9 Heart failure, unspecified; Z79.899 Other long term (current) drug therapy; Z90.710 Acquired absence of both cervix and uterus; Z98.890 Other specified postprocedural states; Z82.3 Family history of stroke; F17.210 Nicotine dependence, cigarettes, uncomplicated; Z90.49 Acquired absence of other specified parts of digestive tract; Z79.01 Long term (current) use of anticoagulants; M19.90 Unspecified osteoarthritis, unspecified site; X58.XXXA Exposure to other specified factors, initial encounter; Y93.89 Activity, other specified; Y92.89 Other specified places as the place of occurrence of the external cause; Y99.8 Other external cause status
CPT/HCPCS: 29880; A7015; C1782; J0171; J0696; J0780; J1100; J2001; J2405; J2704; J3010; J3490

== ENCOUNTER → 2018-07-10 | Outpatient (CLI) | payer OTHER, MEDICARE ==
[~2018-07-10] MED LIST changes: -BUPIVACAINE-EPI 0.25%-1:200000 MPF 30 ML VIAL. ONE; -DEXAMETHASONE SOD PHOS 20 MG/5 ML VIAL. ONE; -EPINEPHrine VIAL 30 MG/30 ML VIAL ONE; +HYDR-2765 PO; -HYDROmorphone 2 MG/ML VIAL IV PRN; -IV RINGERS,LACTATED 1000ML 1,000 ML IV SCH; -LIDOCAINE 2% PF 5 ML VIAL. ONE; -MORPHINE SULFATE 2 MG/ML VIAL. IV PRN; +ONDA4TAB7 PO; -ONDANSETRON PF 4 MG/2 ML VIAL. ONE; -PROCHLORPERAZINE 10 MG/2 ML VIAL. IV PRN; -PROPOFOL 20 ML IV ONE; -ceFAZolin 2GM PREMIX 2 GM/50 ML BAG IV ONE; -fentaNYL PF VIAL 100 MCG/2 ML VIAL IV PRN
--- NOTE | 2018-07-10 15:12 | CARD ---
MR#: [id number] Date of Study: 07/10/2018 Ordering Physician: AVI MARTINEZ, Referring Physician: AVI MARTINEZ, Tech: Lisa Barrera [facility] APPROVED REPORT EXAM: Two-dimensional and M-mode echocardiogram with Doppler and color Doppler. Other Information Quality : AverageHR: 64bpm Rhythm : NSR INDICATION PAF 2D DIMENSIONS RVDd2.3 (2.9-3.5cm)Left Atrium(2D)4.6 (1.6-4.0cm) IVSd1.2 (0.7-1.1cm)Aortic Root(2D)3.0 (2.0-3.7cm) LVDd4.5 (3.9-5.9cm)LVOT Diameter1.8 (1.8-2.4cm) PWd1.0 (0.7-1.1cm)LVDs3.1 (2.5-4.0cm) FS (%) 31.1 %SV53.5 ml LVEF(%)59.0 (>50%) M-Mode DIMENSIONS Left Atrium(MM)3.98 (2.5-4.0cm)Aortic Root2.92 (2.2-3.7cm) Aortic Valve AoV Peak Perfecto.201.4cm/sAoV VTI49.6cm AO Peak GR.16.2mmHgLVOT Peak Perfecto.78.1cm/s AO Mean GR.10mmHgAVA (VMAX)0.90cm2 NIESAH (VTI)1.00cm2 Mitral Valve MV E Oprexild42.8cm/sMV E Peak Gr.7mmHg MV DECEL SSEG525zeVU A Axhgxnfh265.1cm/s MV E Mean Gr.3mmHgE/A Ratio0.9 Pulmonary Valve PV Peak Rzddloam857.8cm/s LEFT VENTRICLE The left ventricle is normal size. Proximal septal thickening is noted. The left ventricular systolic function is normal and the ejection fraction is within normal range. The Ejection Fraction is 55-60% . There is normal LV segmental wall motion. Transmitral Doppler flow pattern is Grade I-abnormal rela xation pattern. RIGHT VENTRICLE The right ventricle is normal size. There is normal right ventricular wall thickness. The right ventr icular systolic function is normal. ATRIA The left atrium is mildly dilated. The right atrium size is normal. The interatrial septum is intact with no evidence for an atrial septal defect or patent foramen ovale as noted on 2-D or Doppler imagi ng. AORTIC VALVE The aortic valve is trileaflet. The aortic valve is moderately calcified. Doppler and Color Flow reve aled no significant aortic regurgitation. There is mild valvular aortic stenosis with a maximum press ure gradient of 16 mmHg and mean pressure gradient of 10 mmHg. MITRAL VALVE Mitral annular calcification is mild. There is no evidence of mitral valve prolapse. There is no mitr al valve stenosis. Doppler and Color-flow revealed trace mitral regurgitation. TRICUSPID VALVE The tricuspid valve is normal in structure and function. Doppler and Color Flow revealed no tricuspid valve regurgitation noted. There is no tricuspid valve prolapse or vegetation. There is no tricuspid valve stenosis. PULMONIC VALVE Doppler and Color Flow revealed no pulmonic valvular regurgitation. There is no pulmonic valvular blayne nosis. GREAT VESSELS The aortic root is normal in size. The ascending aorta is normal in size. The IVC is normal in size a nd collapses >50% with inspiration. PERICARDIAL EFFUSION There is no evidence of significant pericardial effusion. Critical Notification Critical Value: No <Conclusion> The left ventricular systolic function is normal and the ejection fraction is within normal range. Th e Ejection Fraction is 55-60%. There is normal LV segmental wall motion. Signed by : Avi Martinez, Electronically Approved : 07/10/2018 15:12:07
== END | disposition home or self-care (01) ==
LOC: ECHO 13:24
PROVIDERS: ATTEND Internal Medicine Cardiovascular Disease
DX: I08.0 Rheumatic disorders of both mitral and aortic valves (principal); I48.0 Paroxysmal atrial fibrillation
CPT/HCPCS: 93306

== ENCOUNTER → 2018-11-22 | Outpatient (CLI) | payer OTHER ==
[2018-11-22 16:49] LABS: BASO % 1 % (0-3); EOS # 0.1 x10^3/uL (0.0-0.7); EOS % 2 % (0-3); HEMATOCRIT 37.5 % (36.0-47.0); HEMOGLOBIN 12.9 g/dL (12.0-15.5); LYMPH # 0.8 x10^3/uL (1.0-4.8); LYMPH % 16 % (24-48); MEAN CORPUSCULAR HEMOGLOBIN 32 pg (25-35); MEAN CORPUSCULAR HGB CONC 35 g/dL (31-37); MEAN CORPUSCULAR VOLUME 92 fL (79-100); MONO # 0.5 x10^3/uL (0.0-1.1); MONO % 10 % (0-9); NEUT # 3.4 x10^3/uL (1.8-7.7); NEUT % 71 % (31-73); PLATELET COUNT 171 x10^3/uL (140-400); RED CELL DISTRIBUTION WIDTH 14.2 % (11.5-14.5); WHITE BLOOD COUNT 4.8 x10^3/uL (4.0-11.0)
[2018-11-22 17:10] LABS: ALBUMIN 3.4 g/dL (3.4-5.0); ALBUMIN/GLOBULIN RATIO 0.9 (1.0-1.7); CALCIUM 8.9 mg/dL (8.5-10.1); CREATININE 0.9 mg/dL (0.6-1.0); POTASSIUM 3.7 mmol/L (3.5-5.1); TOTAL BILIRUBIN 0.2 mg/dL (0.2-1.0)
[2018-11-23 21:07] LABS: THYROXINE 6.4 ug/dL (4.5-12.0)
== END | disposition home or self-care (01) ==
LOC: LAB 16:13
PROVIDERS: ATTEND Nurse Practitioner
DX: E04.9 Nontoxic goiter, unspecified (principal)
CPT/HCPCS: 36415; 80053; 84436; 84443; 84480; 85025

== ENCOUNTER → 2018-11-26 | Outpatient (CLI) | payer OTHER ==
--- NOTE | 2018-11-26 14:32 | RAD ---
Examination: THYROID ULTRASOUND History: Thyroid nodule follow-up Comparison/Correlation: 07/02/2017 thyroid ultrasound exam, 11/03/2017 CT chest with contrast Findings: Thyroid ultrasound exam was performed. Right thyroid lobe measures 3.9 cm x 1 cm x 1.2 cm. Left thyroid lobe measures 5.9 cm x 1.3 cm x 2.4 centimeter. At the right thyroid lobe superior pole, there is a 0.9 cm x 0.5 cm x 0.5 cm nodule with internal echoes. At the right thyroid lobe inferior pole, there is a 0.8 cm x 0.9 cm x 0.8 cm diameter heterogeneous nodule. No suspicious flow identified within the nodules. Large heterogeneous nodule involving the left thyroid lobe nodule measuring 4 cm x 3.7 cm x 2.80 cm. It is heterogeneous and well-demarcated. Minimal flow in its periphery is noted. Coarse calcification noted within it. Thyroid isthmus is unremarkable. Impression: Dominant left thyroid mass is again seen. No significant change considering differences in measurement technique. Electronically signed by: Kuldip Anand MD (11/26/2018 2:29 PM) [facility]
== END | disposition home or self-care (01) ==
LOC: US 10:58
PROVIDERS: ATTEND Nurse Practitioner
DX: E04.1 Nontoxic single thyroid nodule (principal); E07.9 Disorder of thyroid, unspecified
CPT/HCPCS: 76536

== ENCOUNTER → 2019-02-11 | Outpatient (CLI) | payer OTHER ==
[~2019-02-11] MED LIST changes: +ASPI-630 PO; +CHOL100099 PO; +IBUP-1027 PO
[2019-02-11 09:14] LABS: ALBUMIN 3.6 g/dL (3.4-5.0); CALCIUM 8.8 mg/dL (8.5-10.1); CREATININE 0.8 mg/dL (0.6-1.0); GFR 69.9; POTASSIUM 4.4 mmol/L (3.5-5.1)
[2019-02-11 09:16] LABS: PROTHROMBIN TIME PATIENT 12.9 SEC (11.7-14.0)
--- NOTE | 2019-02-11 12:43 | EKG ---
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
[2019-02-11 14:45] LABS: BASO % 1 % (0-3); EOS # 0.1 x10^3/uL (0.0-0.7); EOS % 2 % (0-3); LYMPH # 0.5 x10^3/uL (1.0-4.8); LYMPH % 13 % (24-48); MEAN CORPUSCULAR HEMOGLOBIN 31 pg (25-35); MEAN CORPUSCULAR HGB CONC 33 g/dL (31-37); MEAN CORPUSCULAR VOLUME 93 fL (79-100); MONO # 0.3 x10^3/uL (0.0-1.1); MONO % 9 % (0-9); NEUT % 75 % (31-73); PLATELET COUNT 177 x10^3/uL (140-400); RED BLOOD COUNT 4.54 x10^6/uL (3.50-5.40); RED CELL DISTRIBUTION WIDTH 13.8 % (11.5-14.5); WHITE BLOOD COUNT 3.9 x10^3/uL (4.0-11.0)
[2019-02-12 00:07] LABS: HEMOGLOBIN A1C 5.9 % (4.8-5.6)
--- NOTE | 2019-02-12 12:23 | RAD ---
PA and lateral chest x-ray compared to CT scan of the chest dated November [id number] for preop, right knee arthroplasty. FINDINGS: Lungs are hyperinflated. There is no pneumothorax, pleural effusion, pulmonary edema, or focal pneumonic infiltrate. There is redemonstration of a benign appearing densely calcified left posterior granuloma. Heart size within normal limits. There is atherosclerosis of the aortic arch. No significant osseous anomalies are seen. IMPRESSION: 1. No acute cardiopulmonary abnormality. 2. Hyperinflation suggesting COPD. Electronically signed by: Roman Solis MD (02/12/2019 12:21 PM) [facility]
== END | disposition home or self-care (01) ==
LOC: SURGPAT 12:33
PROVIDERS: ATTEND Orthopaedic Surgery
DX: Z01.818 Encounter for other preprocedural examination (principal); M17.11 Unilateral primary osteoarthritis, right knee; J84.10 Pulmonary fibrosis, unspecified; I70.0 Atherosclerosis of aorta
CPT/HCPCS: 36415; 71046; 80048; 82040; 82306; 83036; 85025; 85610; 85651; 85730; 87641; 93005

== ENCOUNTER 2019-03-05 07:45 | Inpatient (IN) | payer OTHER ==
--- NOTE | 2019-03-04 17:23 | PDOC1 ---
History and Physical Date of Admission Date of Admission 03/05/19 Identification/Chief Complaint Chief Complaint Right knee osteoarthritis pain Source Source: Chart review History of Present Illness History of Present Illness Ms. Lyn is a 73-year-old woman who presents in follow-up for her right knee. History of right knee arthroscopy with medial meniscectomy on 05/30/18. She feels pain in her right medial knee and notes that her knee is still very sore and painful and she is still having trouble walking. On her last visit, she started Supartz injections and I aspirated/injected her right knee and prescribed a hi nged knee brace. Currently, she reports being unable to cut grass due to her knee pain. She now desires a total knee replacement as a result of her debilitating pain. She has stopped taking eliquis and denies smoking or any metal/nickel allergy. She is here for elective right total knee arthroplasty. Past Medical History Past Medical History CHF. Paroxysmal atrial fibrillation. Thyroid nodule. Lung nodules. Mediastinal lymphadenopathy. A-fib. Cardiovascular: AFIB, CHF, Valve insufficiency Pulmonary: Other (lung nodule) Endocrine: Other (thyroid nodule) Past Surgical History Past Surgical History Hysterectomy Hernia repair Mediastinoscopy 10/2017 peritonitis 1962 Past Surgical History: Hernia Repair, Hysterectomy Family History Family History Mother: Father: Maternal Grand Mother: Maternal Grand Father: Paternal Grand Mother: Paternal Grand Father: 1 sister(s) . Mother had CVA. Family History: Hypertension, Stroke Social History Smoke: Quit ALCOHOL: none Drugs: None Current Problem List Problem List Osteoarthritis right knee Current Medications Current Medications Current Medications Fentanyl Citrate (Fentanyl 2ml Vial) 25 mcg PRN Q5MIN PRN IV MILD PAIN 1-3; Start 03/05/19 at 07:00; Stop 03/06/19 at 06:59 Fentanyl Citrate (Fentanyl 2ml Vial) 50 mcg PRN Q5MIN PRN IV MODERATE TO SEVERE PAIN; Start 03/05/19 at 07:00; Stop 03/06/19 at 06:59 Morphine Sulfate (Morphine Sulfate) 1 mg PRN Q10MIN PRN IV SEVERE PAIN 7-10; Start 03/05/19 at 07:00; Stop 03/06/19 at 06:59 Ringer's Solution 1,000 ml @ 30 mls/hr Q24H IV ; Start 03/05/19 at 07:00; St op 03/05/19 at 18:59 Hydromorphone HCl (Dilaudid) 0.5 mg PRN Q10MIN PRN IV SEV PAIN, Second choice; Start 03/05/19 at 07:00; Stop 03/06/19 at 06:59 Prochlorperazine Edisylate (Compazine) 5 mg PACU PRN PRN IV NAUSEA, MRX1; Start 03/05/19 at 07:00; Stop 03/06/19 at 06:59 Active Scripts Active Metoprolol Tartrate 25 Mg Tablet 25 Mg PO BID 60 Days Flecainide Acetate 50 Mg Tablet 100 Mg PO Q12HR 60 Days Reported Ibuprofen 400 Mg Tablet 200 Mg PO PRN Q6HRS PRN Vitamin D3 (Cholecalciferol (Vitamin D3)) 10,000 Unit Capsule 5,000 Unit PO DAILY Aspirin 81 Mg Tab.chew 81 Mg PO DAILY Klor-Con M20 (Potassium Chloride) 20 Meq Tab.er.prt 20 Meq PO DAILY Furosemide 20 Mg Tablet 1 Tab PO DAILY Allergies Allergies: Coded Allergies: No Known Drug Allergies (Unverified , 05/28/18) Physical Exam General: Alert, Cooperative HEENT: Atraumatic Heart: RRR Abdomen: Soft Extremities: Normal pulses, Other (The RIGHT knee shows a mildly antalgic gait. There is varus alignment. No masses. No detectable effusion. Tenderness on the joint lines. Range of motion is 5-115 degrees. There is crepitus with range of motion, and pain at the extremes of motion. The knee is stable to varus and valgus stress without subluxation or laxity. Muscle strength is slightly weak for the quadriceps 5/5 which may be due to pain or avoidance, and does not seem neurogenic, and the muscle tone and bulk is slightly decreased. The hamstring strength is 5/5. The skin is normal with no scars, rashes, lesions or ulcers. Light touch sensation is intact. No edema and no varicosities. Dorsalis pedis pulse is intact and capillary refill is normal. ) Skin: No breakdown, No significant lesion Labs Labs INR 1.0 Vitamin D 20 Images Images Report reviewed, images independently reviewed. There is significant narrowing now compared to the x-rays taken in May, as well as medial tibial osteophyte formation, and there is now on effusion. There is subchondral lucency which may indicate a subchondral osteoarthritis cyst. On her prior x-rays I would've not diagnosed osteoarthritis, but today's x-rays definitely show osteoarthritis with narrowing nearly vnce-sq-ptat medially, varus malalignment, and subchondral changes with osteophyte formation. [facility] [address] [place] [address] IMAGING REPORT Signed PATIENT: NELI LYN ACCOUNT: [id number] : 1945 LOCATION: [facility] AGE: 73 SEX: F EXAM STATUS: REG CLI ORD. PHYSICIAN: AKIN PAK MD REASON: PROCEDURE: KNEE STANDING BILAT AP Examination: KNEE RIGHT 2V, KNEE STANDING BILAT AP History: RIGHT KNEE F/U. PT HAD A MENISECTOMY 05/2018 AND IS STILL HAVING PAIN Comparison/Correlation: 05/16/2018 right knee 4 view x-ray exam Findings: Standing AP lateral views of the knees were provided. Lateral view and patellar sunrise view of the right knee were provided. Small right knee joint effusion is present. Spurring about the lateral patellofemoral compartment of the right knee noted. Mild narrowing of the lateral patellofemoral compartment is present. Moderate right medial compartment narrowing is present with spurring. Subchondral lucency involving the right tibial plateau noted likely related to degenerative change. Left knee joint spaces are unremarkable on the frontal view. No acute fracture or bony destruction. Impression: Right knee medial compartment degenerative narrowing. This is evident on the standing frontal view as part of this exam as compared to previous right knee x-ray examination of 05/16/2018. Right knee joint effusion. Left knee joint space is adequate. Electronically signed by: Se Whittington MD (01/14/2019 4:58 PM) [facility] DICTATED and SIGNED BY: SE WHITTINGTON MD DATE: 01/14/19 0450 VTE Prophylaxis Ordered VTE Prophylaxis Devices: Yes VTE Pharmacological Prophylaxi: Yes Assessment/Plan Assessment/Plan The patient's right knee osteoarthritis has progressed quite a bit since her last images in May as her knee is now ozln-le-xiix. We reviewed the options for treatment and I recommended total knee replacement as she has tried nonoperative treatment including cortisone injections and Visco supplementation without much success. We discussed the potential risks of infection, neurovascular injury, fracture, bleeding, blood clots, malalignment, need for revision surgery, or other potential surgical or anesthetic complications. I recommended the robotic Navio instrumentation and we discussed my reasoning. We also discussed postoperative treatment and expectations. All questions about surgery were answered and she desires to proceed. She is here today for elective right total knee arthroplasty. AKIN PAK MD Mar 04, 2019 17:23
[2019-03-05] VITALS (7 sets, daily range): BP systolic 123–138; BP diastolic 59–71
[~2019-03-05] VITALS: Ht 162.6 cm; Wt 73.9 kg
[~2019-03-05 07:45] MED LIST changes: +HYDROmorphone 2 MG/ML VIAL IV PRN; +IV RINGERS,LACTATED 1000ML 1,000 ML IV SCH; +MORPHINE SULFATE 2 MG/ML VIAL. IV PRN; +MORPHINE SULFATE 5 MG, KETOROLAC 30MG VIAL 30 MG, ROPIVacaine 0.5% PF 60 ML, EPINEPHrin... INT ART ONE; +PROCHLORPERAZINE 10 MG/2 ML VIAL. IV PRN; +TRANEXAMIC ACID 1,000 MG in IV NORMAL SALINE 50ML 50 ML INJ ONE; +fentaNYL PF VIAL 100 MCG/2 ML VIAL IV PRN
[2019-03-05] MEDS ORDERED: TRANEXAMIC ACID 1,000 MG in IV NORMAL SALINE 50ML 50 ML INJ ONE (08:00)
[2019-03-05] MEDS ORDERED: ACETAMINOPHEN 500 MG TABLET PO ONE (08:15)
[2019-03-05] MEDS ORDERED: CELECOXIB 100 MG CAPSULE. PO ONE (08:15)
[2019-03-05] MEDS ORDERED: CELE200C PO (08:53)
[2019-03-05] MEDS ORDERED: FERR-36 PO (08:54)
[2019-03-05] MEDS ORDERED: LIDOCAINE 2% PF 5 ML VIAL. ONE (09:43)
[2019-03-05] MEDS ORDERED: ONDANSETRON PF 4 MG/2 ML VIAL. ONE (09:43)
[2019-03-05] MEDS ORDERED: FAMOTIDINE 20 MG/2 ML VIAL ONE (09:43)
[2019-03-05] MEDS ORDERED: ROCURONIUM 50 MG/5 ML VIAL. ONE (09:43)
[2019-03-05] MEDS ORDERED: fentaNYL PF VIAL 100 MCG/2 ML VIAL ONE ×2 (09:43→14:10)
[2019-03-05] MEDS ORDERED: DEXAMETHASONE SOD PHOS 4 MG/ML VIAL ONE (09:43)
[2019-03-05] MEDS ORDERED: PROPOFOL 20 ML IV ONE (09:43)
[2019-03-05] MEDS ORDERED: VANCOMYCIN 1 GM VIAL. ONE (10:52)
[2019-03-05] MEDS ORDERED: TOBRAMYCIN POWDER 1.2 GM VIAL. ONE (10:53)
[2019-03-05] MEDS ORDERED: ePHEDrine PF IN SALINE 50 MG/10 ML SYRINGE. IV ONE (12:51)
[2019-03-05] MEDS ORDERED: GLYCOPYRROLATE 1 MG/5 ML VIAL. ONE (14:33)
[2019-03-05] MEDS ORDERED: NEOSTIGMINE METHYLSULFATE 5 MG/5 ML SYRINGE. ONE (14:33)
[2019-03-05] MEDS ORDERED: DESFLURANE > 120 MINUTES IH ONE (14:38)
--- NOTE | 2019-03-05 15:14 | PDOC4 ---
Operative Note Operative Note Date of Procedure: March 05, 2019 Pre-Op Diagnosis: Unilateral primary osteoarthritis, right knee. M17.11 Post-Op Diagnosis: same Procedure: right total knee arthroplasty with patella resurfacing, robotic assisted, CPT 09783 Surgeon: Akin Aguero MD Purchasing Assistant: Janeth GARCIA Anesthesia: General EBL: 100 mL Specimens Obtained: right knee bone and soft tissue Complications: none Drains: Hemovac plus pain catheter Tourniquet time: 72 Minutes Tourniquet Pressure: 300 mm Hg Indications for Procedure: Knee arthritis pain, affecting quality of life, unrelieved by nonoperative management Findings: Severe osteoarthritis with bone on bone contact medially with full thickness cartilage loss in the patellofemoral and lateral compartments Implants: Vasquez [employer] Nephew Journey II Total Knee System, Size 5 right bicruciate stabilized Journey II BCS cobalt chrome femoral component, size 4 right Journey nonporous tibial baseplate, size 3-4 12 mm right Journey II BCS XLPE articular insert, 32 mm oval Kirstie II resurfacing patellar component Procedure in Detail: The patient was identified in the preoperative holding area, and the correct right lower extremity was marked by me. The patient was taken to the operating room where the patient was anesthetized by the Department of Anesthesia. Preoperative antibiotics were given intravenously. Tranexamic acid 1 g was given intravenously for intraoperative hemostasis. A "time-out" procedure was performed. The patient was positioned supine on the operative table with a tourniquet on the upper right thigh. A lateral thigh brace and heel bump were attached to the operating table for later intraoperative positioning. The right lower limb was thoroughly scrubbed, then sterile Chloraprep solution was applied, and the limb was draped in sterile fashion. An impervious stockinet and an adhesive drape were used such that the skin was entirely covered. The operating team wore personal exhaust-ventilated hoods. The limb was exsanguinated with an Esmarch bandage, and the tourniquet was inflated. A midline skin incision was made with a scalpel using the patella and tibial tubercle as landmarks. Electrocautery was used for hemostasis. My paralegal assistant used rake retractors. A medial parapatellar arthrotomy incision was used with extension into the distal quadriceps tendon. The patella was retracted laterally and Hohmann retractors were now used by my paralegal assistant. Excess synovium, the menisci, and the cruciate ligaments were resected sharply. A periarticular multimodal ropivacaine anesthetic injection was used in the suprapatellar pouch and distal quadriceps muscle. The patella was everted and exposed. The patella thickness was measured with a caliper, and then cut freehand with a saw, using caliper measurements to assess the resection. The lateral retinaculum was partially released from the lateral patella using electrocautery. Rongeurs were used to make sure there were no remaining exposed patellar osteophytes medially or laterally. The patella was sized, and then drilled for an oval three-peg patella component. The tibial tracker array for the Navio system was applied to the tibial crest four finger breadths below the tibial tubercle, using percutaneous incisions and bicortical pins. The femoral tracker array was applied through the original incision, using bicortical pins. Checkpoint verification pins were applied to the femur and tibia. Using the point probe, the medial and lateral malleoli were localized and the locations were stored. The center of the tibia was noted at the anterior cruc iate ligament insertion and stored. The center of the femur was marked at the intersection of Whitesidess line with the transepicondylar axis. The hip center calculation was performed with range of motion of the hip. The femur neutral position was identified, and simulated weightbearing was performed with axial compression on the foot. Range of motion without stress was performed and the data collected. Range of motion with valgus stress, and range of motion with varus stress data collection was also performed. Rotational references include the Whitesidess line, and the trans-epicondylar axis. The femoral articular surface was now mapped in 3 dimensions using the point probe and digital data collected. The tibial condyle articular surfaces and cortical edges were mapped in 3 dimensions using the point probe including the medial and lateral tibial plateau. Implant planning was now performed on-screen with manipulation of the implant sizes, cut thicknesses and gaps, component rotation, component flexion/extension and component varus/valgus until satisfactory ligament balance, alignment and stability of the knee was expected throughout the range of motion. My paralegal assistant held Hohmann retractors and an [facility] retractor to protect the medial and lateral collateral ligaments, the patellar tendon, the skin and the other soft tissues. The point probe was used to confirm the location of the checkpoint verification pins. The distal femoral surface was now prepared using the Anspach odalis with footpedal, and the Navio handpiece for bone removal to the previously planned distal femoral resection. The crosshairs at the pin locations were marked by using a mallet and the point probe for definitive location. A 5-in-1 Journey II cutting guide was then applied and the position was checked with the virtual jenni wing from the Navio to ensure proper placement as the pins were applied. The posterior, anterior, and all chamfer cuts were made with the oscillating saw. Excess bone was removed with an osteotome and rongeur s. The tibial cutting guide was applied, positioned using the virtual jenni wing, and secured to the upper tibia using three pins at the previously planned location. The virtual jenni wing was used to confirm the resection depth, slope and coronal alignment. The upper tibia was cut made with an oscillating saw. My paralegal assistant held Hohmann retractors and a posterior cruciate ligament retractor to protect the medial and lateral collateral ligaments, the patellar tendon, the skin, the peroneal nerve and the other soft tissues. The upper tibia was sized with a trial baseplate. The posterior compartment was cleared of osteophytes and loose bodies. The periarticular anesthetic injection was used in the posterior compartment. The box cut for a posterior stabilized component was made. A preliminary reduction was performed with a trial femur, trial tibial baseplate and trial polyethylene. The Navio system was used to confirm range of motion, and postoperative stressed gap assessment. No additional releases were required. The stability was assessed using different thicknesses of tibial articular surface to find satisfactory stability and good range of motion. The rotation of the tibial component was marked on the upper tibia. Final trial reduction was now performed verifying patella tracking and tibiofemoral stability and alignment. The bone pins and tracker arrays were removed, and the checkpoint verification pins were removed. The tibia preparation was completed with a drill, saw, and fin punch at the previously noted rotation. The final implants were verified and opened. Outer gloves were changed by the operating team. Betadine lavage was used. The bone cuts were irrigated with saline using the [employer] InterPulse device and then dried with suction and laparotomy sponges. Two packages of Vasquez + Nephew Rally HV bone cement were mixed in powdered form with Vancomycin 1gm and Tobramycin 1.2 gm, and then vacuum-mixed with the monomer, and placed into a cement gun. The cut surfaces of the bone were thoroughly dried with suction and with laparotomy sponges for cement interdigitation. The final components were cemented into place. The knee was kept at full extension while the cement hardened, and excess cement was removed. A Betadine lavage was used throughout the surgical exposure, and allowed to sit in contact with the exposed joint surfaces for three minutes while the cement hardened. Tranexamic acid 1 g was redosed intravenously for additional intraoperative hemostasis. The tourniquet was released, and electrocautery was used for hemostasis. A final periarticular anesthetic injection was used for pain relief. The bone pin sites on the tibial crest were closed with #3-0 Nylon sutures. A final check of hymlp-vz-kqmqjx and stability was made, and the polyethylene i mplant final size was chosen. The polyethylene implant was secured to the tibial baseplate, and the knee was reduced a final time and range of motion and stability was confirmed. Thorough irrigation was used. A pain catheter, and a 12 Fr Hemovac were inserted. Topical Vancomycin 1 gm was used during the closure. The arthrotomy was closed with interrupted [id number]-[id number] #1 PDS suture. The arthrotomy incision was then run with #1 STRATAFIX Symmetric PDS Plus Knotless suture. The subcutaneous tissues were approximated initially with 2-0 PDS inverted interrupted sutures by me and my paralegal assistant. Next the subcuticular layer was approximated in a running fashion with #3-0 STRATAFIX suture by me. The skin incision was then covered and reinforced by me with Acticoat, followed by a UMA single use negative pressure wound therapy dressing Soft roll and an Jonny wrap were applied. Needle and sponge counts were correct. There were no apparent complications. The patient returned to the recovery room in stable condition. AKIN AGUERO MD Mar 05, 2019 15:13
[2019-03-05] MEDS ORDERED: IV NORMAL SALINE 1000ML BAG 1,000 ML IV SCH (15:16)
[2019-03-05] MEDS ORDERED: CALCIUM CARBONATE 500 MG TAB.CHEW PO PRN (15:30)
[2019-03-05] MEDS ORDERED: PROCHLORPERAZINE 5 MG TABLET. PO PRN (15:30)
[2019-03-05] MEDS ORDERED: 0.9 % SODIUM CHLORIDE 10 ML DISP.SYRIN. IV PRN (15:30)
[2019-03-05] MEDS ORDERED: ZOLPIDEM 5 MG TABLET. PO PRN (15:30)
[2019-03-05] MEDS ORDERED: IV DEXTROSE 5% 250 ML BAG. IV PRN (15:30)
[2019-03-05] MEDS ORDERED: METOCLOPRAMIDE HCL 10 MG/2 ML VIAL. IV PRN (15:30)
[2019-03-05] MEDS ORDERED: DEXTROSE 50% 25 GM / 50ML DISP.SYRIN. IV PRN (15:30)
[2019-03-05] MEDS ORDERED: MORPHINE SULFATE 4 MG/ML VIAL. IV PRN (15:30)
[2019-03-05] MEDS ORDERED: diphenhydrAMINE 50 MG/ML VIAL IV PRN (15:30)
[2019-03-05] MEDS ORDERED: fentaNYL PF VIAL 100 MCG/2 ML VIAL IV PRN ×2 (15:30)
[2019-03-05] MEDS ORDERED: MORPHINE SULFATE 2 MG/ML VIAL. IV PRN (15:30)
--- NOTE | 2019-03-05 15:58 | RAD ---
AP and lateral views right knee. 03/05/2019 3:16 PM Indication: Post op Findings: There are postsurgical changes following recent total knee arthroplasty. Hardware is appropriate in position without evidence of complication. No fractures or dislocations are identified. Stigmata of recent surgery including surgical drainage catheter and intra-articular gas are noted. Impression: Expected postsurgical changes following recent right total knee arthroplasty. Electronically signed by: Norbert Gonzales MD (03/05/2019 3:55 PM) [id number]
--- NOTE | 2019-03-05 17:45 | NUR ---
Arrived to unit by bed from PACU. Drowsy but awakens easily. No c/o pain, but sl nauseated. Right knee elevated on pillow with ice pack. Dressing on right knee is d/i with UMA, IAC and Hemovac drain. O2 at 4l per n/c. IVF's intact intact and infusing. DELGADO and SCD on left leg and FREDIS on right foot. Side rails up x's 2 with call light in reach. Daughter at bedside. Cont. monitor.
[2019-03-05] MEDS ORDERED: oxyCODONE/APAP 5/325 1 TAB TABLET PO PRN (18:00)
[2019-03-05] MEDS ORDERED: ONDANSETRON ODT 4 MG TAB.RAPDIS. PO SCH (18:00)
[2019-03-05] MEDS ORDERED: ONDANSETRON PF 4 MG/2 ML VIAL. IV SCH (18:00)
[2019-03-05] MEDS: KETOROLAC 30MG VIAL 30 MG, BUPIVACAINE MPF 0.25% 20 ML, EPINEPHrine 0.5 MG in TOTAL VOL... INT ART SCH (18:53)
[2019-03-05] MEDS: FLECAINIDE ACETATE 50 MG TABLET. PO SCH (20:58)
[2019-03-05] MEDS: METOPROLOL TART IMMED RELEASE 25 MG TABLET. PO SCH (20:58)
[2019-03-05] MEDS: ASPIRIN ENTERIC COATED 325 MG TABLET.DR. PO SCH (20:58)
[2019-03-06 03:50] VITALS: BP 118/58
[2019-03-06 05:14] LABS: HEMATOCRIT 36.7 % (36.0-47.0); HEMOGLOBIN 12.1 g/dL (12.0-15.5)
[2019-03-06 05:23] LABS: PROTHROMBIN TIME PATIENT 14.2 SEC (11.7-14.0)
[2019-03-06] MEDS ORDERED: MAGNESIUM HYDROXIDE 2,400 MG/30 ML ORAL.SUSP. PO PRN (06:00)
[2019-03-06 06:27] VITALS: BP 118/53
[2019-03-06] MEDS: KETOROLAC 30MG VIAL 30 MG, BUPIVACAINE MPF 0.25% 20 ML, EPINEPHrine 0.5 MG in TOTAL VOL... INT ART SCH (06:29)
[2019-03-06] MEDS: FUROSEMIDE 20 MG TABLET PO SCH (09:00)
[2019-03-06] MEDS: POTASSIUM CHLORIDE 20 MEQ TABLET.ER. PO SCH (09:00)
[2019-03-06] MEDS: METOPROLOL TART IMMED RELEASE 25 MG TABLET. PO SCH ×2 (09:00→21:22)
[2019-03-06] MEDS: FLECAINIDE ACETATE 50 MG TABLET. PO SCH ×2 (09:00→21:22)
[2019-03-06] MEDS: MULTIVITAMIN with MINERAL TABLET. PO SCH (09:06)
[2019-03-06] MEDS: SENNOSIDES/DOCUSATE 8.6/50MG TABLET. PO SCH (09:07)
[2019-03-06] MEDS: ASPIRIN ENTERIC COATED 325 MG TABLET.DR. PO SCH ×2 (09:07→21:22)
[2019-03-06] MEDS: CHOLECALCIFEROL (VITAMIN D3) 5,000 UNIT CAPSULE PO SCH (09:08)
[2019-03-06] MEDS: CELECOXIB 100 MG CAPSULE. PO SCH (09:09)
[2019-03-06] MEDS: oxyCODONE/APAP 5/325 1 TAB TABLET PO PRN ×2 (09:10→12:51)
[2019-03-06] MEDS ORDERED: ONDANSETRON ODT 4 MG TAB.RAPDIS. PO PRN (12:00)
[2019-03-06] MEDS ORDERED: ONDANSETRON PF 4 MG/2 ML VIAL. IV PRN (12:00)
--- NOTE | 2019-03-06 13:13 | PDOC ---
PROGRESS NOTES Subjective Subjective Pain controlled. No complaints. Objective Vital Signs Vital Signs Date Time Temp Pulse Resp B/P (MAP) Pulse Ox O2 Delivery O2 Flow Rate FiO2 03/06/19 12:51 Room Air 03/06/19 09:00 63 110/47 03/06/19 08:00 4.0 03/06/19 06:27 97.6 18 94 97.6 Physical Exam Dressing intact and dry. Hemovac and pain catheter in place. Thigh and calf soft. Good active range of motion of foot including dorsiflexion and plantar flexion. Cap refill at toes intact. No signs of compartment syndrome, DVT or neurovascular injury. Labs Laboratory Tests Test 03/06/19 04:21 Hemoglobin 12.1 g/dL (12.0-15.5) Hematocrit 36.7 % (36.0-47.0) Mean Corpuscular Hemoglobin Concent 33 g/dL (31-37) Prothrombin Time 14.2 SEC (11.7-14.0) Prothromb Time International Ratio 1.1 (0.8-1.1) Laboratory Tests Test 03/06/19 04:21 Hemoglobin 12.1 g/dL (12.0-15.5) Hematocrit 36.7 % (36.0-47.0) Mean Corpuscular Hemoglobin Concent 33 g/dL (31-37) Prothrombin Time 14.2 SEC (11.7-14.0) Prothromb Time International Ratio 1.1 (0.8-1.1) Imaging Postop X-rays reviewed by me. Satisfactory TKA alignment, without apparent complications. Assessment Assessment POD 1 TKA Plan Plan of Care Continue POC AKIN PAK MD Mar 06, 2019 13:13
--- NOTE | 2019-03-06 15:15 | NUR ---
Hemovac & IAC discontinued per order tolerated well, Pretty dressing clean, dry & intact, in lounge chair with legs elevated, call light within reach
[2019-03-06] MEDS ORDERED: BISACODYL 10 MG SUPP.RECT. PR PRN (16:00)
[2019-03-06 18:28] VITALS: BP 125/71
[2019-03-07] MEDS: oxyCODONE/APAP 5/325 1 TAB TABLET PO PRN ×2 (00:31→13:34)
--- NOTE | 2019-03-07 04:35 | NUR ---
States her leg is "sore". Refused pain meds, "they make me sick to my stomach sometimes." Also c/o constipation. Wants the "liquid in the bottle w/ the pink label."
[2019-03-07 05:14] LABS: HEMATOCRIT 32.5 % (36.0-47.0); HEMOGLOBIN 10.9 g/dL (12.0-15.5)
[2019-03-07 05:22] LABS: PROTHROMBIN TIME PATIENT 14.2 SEC (11.7-14.0)
--- NOTE | 2019-03-07 05:52 | NUR ---
Assisted to toilet, ambulates w/o difficulty. Refuses to sit in recliner, "way too uncomfortable."
[2019-03-07 06:00] VITALS: BP 130/65
[2019-03-07] MEDS: CELECOXIB 100 MG CAPSULE. PO SCH (09:00)
[2019-03-07] MEDS: ASPIRIN ENTERIC COATED 325 MG TABLET.DR. PO SCH ×3 (09:00→21:36)
[2019-03-07] MEDS: CHOLECALCIFEROL (VITAMIN D3) 5,000 UNIT CAPSULE PO SCH (09:00)
[2019-03-07] MEDS: POTASSIUM CHLORIDE 20 MEQ TABLET.ER. PO SCH (09:00)
[2019-03-07] MEDS: FLECAINIDE ACETATE 50 MG TABLET. PO SCH ×2 (09:00→21:36)
[2019-03-07] MEDS: METOPROLOL TART IMMED RELEASE 25 MG TABLET. PO SCH ×2 (09:00→21:36)
[2019-03-07] MEDS: MULTIVITAMIN with MINERAL TABLET. PO SCH (09:00)
[2019-03-07] MEDS: SENNOSIDES/DOCUSATE 8.6/50MG TABLET. PO SCH (09:00)
[2019-03-07] MEDS: FUROSEMIDE 20 MG TABLET PO SCH (09:00)
[2019-03-07 09:02] VITALS: BP 138/65
--- NOTE | 2019-03-07 09:07 | NUR ---
Attempted to give am medication earlier c/o nausea, emesis of undigested eggs after eating 100%, attempted again to give medication stated she didn't know because her stomach was upset, then began to eat applesauce, offered anti-emetic refused will continue to support decisions. Up in chair with feet elevated, call light in reach Addendum: 03/07/19 at 1008 by BETHANY PARRY RN Assessed pain level stated 10/13 refuses any additional intervention at this point except elevation
--- NOTE | 2019-03-07 11:16 | NUR ---
C/O feeling blood sugar may be low, FSBS 120 warm dry skin to touch, he stated I might be dehydrated, given ice water to drink will reassess after group therapy
[2019-03-07] MEDS ORDERED: ONDANSETRON ODT 4 MG TAB.RAPDIS. PO ONE (12:30)
--- NOTE | 2019-03-07 12:32 | NUR ---
Continued nausea, received order for 1x dose of Zofran, declined lunch, continued knee discomfort, ice to knee, elevated at times, will give pain medication after administration of Zofran, up in chair at present, call light within reach
--- NOTE | 2019-03-07 17:31 | PDOC ---
ORTHO PROGRESS NOTES Subjective Pain controlled. No complaints. Denies any complications. Post-op Day: 2 Procedure RIGHT knee TKA Vitals Vital Signs Date Time Temp Pulse Resp B/P (MAP) Pulse Ox O2 Delivery O2 Flow Rate FiO2 03/07/19 13:34 Room Air 03/07/19 09:02 73 138/65 (89) 03/07/19 06:00 18 94 03/06/19 18:28 97.8 97.8 03/06/19 08:00 4.0 Labs Laboratory Tests Test 03/06/19 04:21 03/07/19 04:40 Hemoglobin 12.1 g/dL (12.0-15.5) 10.9 g/dL (12.0-15.5) Hematocrit 36.7 % (36.0-47.0) 32.5 % (36.0-47.0) Mean Corpuscular Hemoglobin Concent 33 g/dL (31-37) 34 g/dL (31-37) Prothrombin Time 14.2 SEC (11.7-14.0) 14.2 SEC (11.7-14.0) Prothromb Time International Ratio 1.1 (0.8-1.1) 1.1 (0.8-1.1) Laboratory Tests Test 03/07/19 04:40 Hemoglobin 10.9 g/dL (12.0-15.5) Hematocrit 32.5 % (36.0-47.0) Mean Corpuscular Hemoglobin Concent 34 g/dL (31-37) Prothrombin Time 14.2 SEC (11.7-14.0) Prothromb Time International Ratio 1.1 (0.8-1.1) X-Rays PATIENT: NELI ROD ACCOUNT: [id number] : 1945 LOCATION: [facility] AGE: 73 SEX: F EXAM STATUS: ADM IN ORD. PHYSICIAN: AKIN PAK MD REASON: POST OP PROCEDURE: KNEE RIGHT 2V AP and lateral views right knee. 03/05/2019 3:16 PM Indication: Post op Findings: There are postsurgical changes following recent total knee arthroplasty. Hardware is appropriate in position without evidence of complication. No fractures or dislocations are identified. Stigmata of recent surgery including surgical drainage catheter and intra-articular gas are noted. Impression: Expected postsurgical changes following recent right total knee arthroplasty. Electronically signed by: Norbert Moreno MD (03/05/2019 3:55 PM) [facility] DICTATED and SIGNED BY: NORBERT MORENO MD DATE: 03/05/19 1550 Notes Resting in chair comfortably, eating. Has increased pain towards end of dosing. Normal chest expansion bilaterally symmetric. A&O x 3. RRR, no murmurs, lungs CTA without adventitious sounds. Calf soft, no cords, no edema, warmth, or redness. Slightly sensitive bilaterally but neg Anthony's sign and low probability Wells criteria. Knee mildly swollen, dressing contains any residual drainage, no signs of infection. Patient demonstrates incomplete extension but with no difficulty. Problems: (1) Aftercare following right knee joint replacement surgery Assessment and Plan No med changes. Continue current POC. STEVE STEVEN Jr. PAC Mar 07, 2019 17:31
[2019-03-07 18:33] VITALS: BP 123/60
[2019-03-08 05:52] LABS: HEMATOCRIT 32.3 % (36.0-47.0); HEMOGLOBIN 10.8 g/dL (12.0-15.5)
[2019-03-08 06:06] LABS: PROTHROMBIN TIME PATIENT 15.5 SEC (11.7-14.0)
[2019-03-08 06:15] VITALS: BP 124/67
[2019-03-08] MEDS ORDERED: POLYETHYLENE GLYCOL 3350 17 GM PACKET. PO PRN (08:00)
[2019-03-08] MEDS: FUROSEMIDE 20 MG TABLET PO SCH (08:26)
[2019-03-08] MEDS: SENNOSIDES/DOCUSATE 8.6/50MG TABLET. PO SCH (08:27)
[2019-03-08] MEDS: CELECOXIB 100 MG CAPSULE. PO SCH (08:27)
[2019-03-08] MEDS: ASPIRIN ENTERIC COATED 325 MG TABLET.DR. PO SCH (08:27)
[2019-03-08] MEDS: CHOLECALCIFEROL (VITAMIN D3) 5,000 UNIT CAPSULE PO SCH (08:27)
[2019-03-08] MEDS: MULTIVITAMIN with MINERAL TABLET. PO SCH (08:27)
[2019-03-08] MEDS: POTASSIUM CHLORIDE 20 MEQ TABLET.ER. PO SCH (08:27)
[2019-03-08] MEDS: FLECAINIDE ACETATE 50 MG TABLET. PO SCH (08:28)
[2019-03-08] MEDS: METOPROLOL TART IMMED RELEASE 25 MG TABLET. PO SCH (08:31)
[2019-03-08] MEDS: oxyCODONE/APAP 5/325 1 TAB TABLET PO PRN (08:34)
[2019-03-08 09:00] VITALS: BP 115/69
--- NOTE | 2019-03-08 10:26 | NUR ---
was feeling better this am. ate breakfast-50%. she is rating her pain a 4 with ambulation. waited to after eating breakfast to give pain pill and am meds. sitting up in recliner. refused shower. spoke again with her about going to rehab. she refuses; she wants to go home. states that she doesnt have anyone to stay with her. wants home health. upon questioning states that her daughter will check on her.asked if she could stay with her--she still works. she became nauseated and had emesis of pink tinged clear liquid (cranberry/lemon bois forte)-no pills noted. she refused oral antiemetic or restarting iv for iv Reglan. states that her calf on her unoperated leg is sore. she has a negative Godinez's sign bilaterally. states that she her calk calf is occasionally sore --prior to surgery. "It is my poor veins down there"
--- NOTE | 2019-03-08 11:31 | PDOC ---
PROGRESS NOTES Subjective Subjective Continued nausea. IVF and IV nausea meds recommended, but patient refused yesterday. Objective Vital Signs Vital Signs Date Time Temp Pulse Resp B/P (MAP) Pulse Ox O2 Delivery O2 Flow Rate FiO2 03/08/19 08:31 83 115/69 03/08/19 08:00 Room Air 03/08/19 06:15 99.0 20 91 99.0 03/07/19 20:29 4.0 Physical Exam UMA intact and dry. Good AROM ankle. Calf soft and nontender. Minimal warmth or erythema. Labs Laboratory Tests Test 03/07/19 04:40 03/08/19 05:15 Hemoglobin 10.9 g/dL (12.0-15.5) 10.8 g/dL (12.0-15.5) Hematocrit 32.5 % (36.0-47.0) 32.3 % (36.0-47.0) Mean Corpuscular Hemoglobin Concent 34 g/dL (31-37) 34 g/dL (31-37) Prothrombin Time 14.2 SEC (11.7-14.0) 15.5 SEC (11.7-14.0) Prothromb Time International Ratio 1.1 (0.8-1.1) 1.3 (0.8-1.1) Laboratory Tests Test 03/08/19 05:15 Hemoglobin 10.8 g/dL (12.0-15.5) Hematocrit 32.3 % (36.0-47.0) Mean Corpuscular Hemoglobin Concent 34 g/dL (31-37) Prothrombin Time 15.5 SEC (11.7-14.0) Prothromb Time International Ratio 1.3 (0.8-1.1) Assessment Assessment POD #3 TKA Plan Plan of Care Discharge planning for today. Continue PT and DVT prophylaxis. F/U 10-14 days in office. AKIN PAK MD Mar 08, 2019 11:31
[2019-03-08] MEDS ORDERED: OXYC1TAB15 PO (11:37)
[2019-03-08] MEDS ORDERED: CELE100C PO (11:37)
[2019-03-08] MEDS ORDERED: ASPI-630 PO (11:37)
--- NOTE | 2019-03-08 11:41 | SNU/HH DC ---
DISCHARGE WITH HOME HEALTH DISCHARGE INFORMATION: Discharge Date: Mar 08, 2019 Condition on Discharge: Stable CODE STATUS: Code Status: Full HOME HEALTH: Face to Face: I certify this patient is under my care and that I, or a nurse practitioner or physician's assistant golf professional working with me, had a face to face encounter that meets the physician face to face encounter requirements with this patient on 03/08/19. Medical Complications: S/P Joint Replacement Fpc For: Other: (DELGADO kelly) RN For Eval/Treatment: Yes Physical Therapy For: Evalulation/Treatment Occupational Therapy For: Evaluation/Treatment Pt Meets Homebound Status: Unsteady balance w/ amb,, Limited distance walking POST DISCHARGE ORDERS: Activity Instructions for Disc: Activity as tolerated, Avoid exertion Weight Bearing Status after Di: As tolerated Bathing Instructions: Shower-keep dressing dry DIET AFTER DISCHARGE: Regular Wound/Incision Care: Ice to area for comfort, Keep wound/cast CDI, Keep wound elevated, Do not change dressing, No wound care needed TREATMENT/EQUIPMENT ORDERS: Adaptive Equipment Issued: None, Front wheeled walker CERTIFICATION STATEMENT: Certification Statement: Certification Statement: Based on the above finding, I certify that this patient is confined to the home and needs intermittent jail care, physical therapy and/or speech therapy, or continues to need occupational therapy.~ This patient is under my care, and I have initiated the establishment of the plan of care.~ This patient will be followed by myself or a community physician who will periodically review the plan of care. Home Meds Active Scripts Celecoxib (CELEBREX) 100 Mg Capsule, 200 MG PO DAILY for control pain and swelling for 30 Days, #60 CAP Take Celebrex 200 mg daily by mouth for 30 days. Prov:AKIN PAK MD 03/08/19 Oxycodone/Apap 5-325 (PERCOCET 5-325 MG TABLET ) 1 Each Tablet, 1-2 TAB PO PRN Q4HRS PRN for PAIN for 14 Days, #60 TAB Take 1-2 tablets by mouth every 4 hours as needed for pain. Prov:AKIN PAK MD 03/08/19 Aspirin (ASPIRIN) 81 Mg Tab.chew, 81 MG PO DAILY for BLOOD THINNER for 30 Days, #30 TAB.CHEW Take 81 mg (low-dose) aspirin by mouth twice a day for 30 days, then resume your normal 81 mg aspirin daily. Prov:AKIN PAK MD 03/08/19 Metoprolol Tartrate (METOPROLOL TARTRATE) 25 Mg Tablet, 25 MG PO BID for 60 Days, #120 TAB Prov:XI MCKAY MD 07/06/17 Flecainide Acetate (FLECAINIDE ACETATE) 50 Mg Tablet, 100 MG PO Q12HR for 60 Days, #240 TAB Prov:XI MCKAY MD 07/06/17 Reported Medications Ferrous Sulfate (IRON) 325 Mg Tablet, 1 TAB PO BID for pre op knee for 30 Days, #60 TAB 0 Refills 03/05/19 Celecoxib (CELEBREX) 200 Mg Capsule, 1 CAP PO ONCE for pre op, #30 CAP 2 Refills 03/05/19 Ibuprofen (IBUPROFEN) 400 Mg Tablet, 200 MG PO PRN Q6HRS PRN for INFLAMMATION, TAB 02/12/19 Cholecalciferol (Vitamin D3) (VITAMIN D3) 10,000 Unit Capsule, 5000 UNIT PO DAILY for SUPPLEMENT, CAP 02/12/19 Potassium Chloride (KLOR-CON M20) 20 Meq Tab.er.prt, 20 MEQ PO DAILY for SUPPLEMENT, TAB.SR 10/04/17 Furosemide (FUROSEMIDE) 20 Mg Tablet, 1 TAB PO DAILY, #90 TAB 1 Refill 07/06/17 AKIN PAK MD Mar 08, 2019 11:41
--- NOTE | 2019-03-08 11:48 | PDOC3 ---
Discharge Summary Visit Information Date of Admission: Mar 05, 2019 Date of Discharge: Mar 08, 2019 Admitting Diagnosis: osteoarthritis right knee, aftercare after right TKA Final Diagnosis same Brief Hospital Course Allergies Allergies Coded Allergies Type Severity Reaction Last Updated Verified No Known Drug Allergies 03/05/19 No Vital Signs Vital Signs Date Time Temp Pulse Resp B/P (MAP) Pulse Ox O2 Delivery O2 Flow Rate FiO2 03/08/19 08:31 83 115/69 03/08/19 08:00 Room Air 03/08/19 06:15 99.0 20 91 99.0 03/07/19 20:29 4.0 Lab Results Laboratory Tests Test 03/07/19 04:40 03/08/19 05:15 Hemoglobin 10.9 g/dL (12.0-15.5) 10.8 g/dL (12.0-15.5) Hematocrit 32.5 % (36.0-47.0) 32.3 % (36.0-47.0) Mean Corpuscular Hemoglobin Concent 34 g/dL (31-37) 34 g/dL (31-37) Prothrombin Time 14.2 SEC (11.7-14.0) 15.5 SEC (11.7-14.0) Prothromb Time International Ratio 1.1 (0.8-1.1) 1.3 (0.8-1.1) Laboratory Tests Test 03/08/19 05:15 Hemoglobin 10.8 g/dL (12.0-15.5) Hematocrit 32.3 % (36.0-47.0) Mean Corpuscular Hemoglobin Concent 34 g/dL (31-37) Prothrombin Time 15.5 SEC (11.7-14.0) Prothromb Time International Ratio 1.3 (0.8-1.1) Brief Hospital Course 73 year old who presented with knee osteoarthritis, for elective total knee arthroplasty. The patient underwent total knee arthroplasty under general anesthesia the day of admission. Perioperative antibiotics and DVT prophylaxis were used. Postoperatively physical therapy and case management were consulted. She had postop nausea, but refused meds and IVF. She did vomit once the day of discharge but appears stable now. The patient progressed and is stable for discharge. Discharge Information Condition at Discharge: Stable Follow Up: Weeks Disposition/Orders: D/C to Home w/ HH Scheduled Aspirin (Aspirin), 81 MG PO DAILY Celecoxib (Celebrex), 1 CAP PO ONCE, (Reported) Celecoxib (Celebrex), 200 MG PO DAILY Cholecalciferol (Vitamin D3) (Vitamin D3), 5,000 UNIT PO DAILY, (Reported) Ferrous Sulfate (Iron), 1 TAB PO BID, (Reported) Flecainide Acetate (Flecainide Acetate), 100 MG PO Q12HR Furosemide (Furosemide), 1 TAB PO DAILY, (Reported) Metoprolol Tartrate (Metoprolol Tartrate), 25 MG PO BID Potassium Chloride (Klor-Con M20), 20 MEQ PO DAILY, (Reported) Scheduled PRN Ibuprofen (Ibuprofen), 200 MG PO PRN Q6HRS PRN for INFLAMMATION, (Reported) Oxycodone/Apap 5-325 (Percocet 5-325 Mg Tablet ), 1-2 TAB PO PRN Q4HRS PRN for PAIN Patient Instructions Patient Instructions Continue to weight bearing as tolerated with walker. Keep UMA dressing intact and dry. Cut off UMA "tail" and throw away battery pack on the 7th day after surgery. Tape down UMA tail Leave UMA dressing intact otherwise. Follow up with Dr. Aguero's office in 10-14 days. Call for appointment unless already scheduled. Continue enteric coated aspirin 325 mg by mouth twice a day for 30 days to prevent blood clots. AKIN AGUERO MD Mar 08, 2019 11:48
--- NOTE | 2019-03-08 14:56 | NUR ---
reviewed discharge instructions regarding medications, incisional care and restrictions to activities of daily living. encouraged to drink fluids when taking celebrex and lisinopril. awaiting daughter. she is going home with home health. she was instructed to take only asa 81mg bid then go back to daily. she already has appt with Dr. Aguero.
[2019-03-08 15:01] VITALS: BP 107/63
--- NOTE | 2019-03-08 16:04 | NUR ---
dismissed to home with home health and daughter.
--- NOTE | 2019-03-11 15:07 | PATHOLOGY ---
[facility] Accession Number: [id number] . 01 Material submitted: . knee - RIGHT KNEE BONE AND TISSUE. Modifiers: right . 01 Clinical history: . Osteoarthritis right knee. . 02 Diagnosis: Segments of bone and soft tissue, right total knee arthroplasty: - Degenerative arthritis. - Mild nonspecific chronic synovitis, focal. . (JPM:stacey; 03/11/2019) QMS 03/11/2019 1029 Local . 02 Electronically signed: . Christofer Khan MD, Pathologist NPI- [id number] . 01 Gross description: . Received in formalin labeled "Coffee, Stacey, right knee bone and tissue" are multiple fragments of hawkins-white bone, yellow-hawkins soft tissue, and hawkins-white rubbery soft tissue measuring in aggregate 16.8 x 12.0 x 1.7 cm. The articular surfaces display roughening and eburnation covering approximately 80% of the surfaces. Manager Respiratory sections of the specimen are submitted in cassettes A1-A2, with A2 decalcified. ([facility] [place]; 03/07/2019) [facility] 03/11/2019 1028 Local . 02 Pathologist provided ICD-10: M17.11, M65.861 . 02 CPT . 472617, 453105 Specimen Comment: A courtesy copy of this report has been sent to [phone], [phone] Specimen Comment: [id number] Specimen Comment: Report sent to / DR MTZ Performed at: [facility] [address], [place] [id number] MD Kali Lao MD Phone: [phone] Performed at: 02 [facility] [address] [place], [place] [id number] MD Christofer Khan MD Phone: [phone]
== END 2019-03-08 16:07 | disposition home health service (06) | DRG 470 ==
LOC: OPSVCIP 07:45 → 4 SOUTHEST 17:31
PROVIDERS: ADMIT Orthopaedic Surgery; ATTEND Orthopaedic Surgery
PROC: 8E0Y0CZ Robotic Assisted Procedure of Lower Extremity, Open Approach (ICD-10-PCS; 2019-03-05)
PROC: 0SRC0J9 Replacement of Right Knee Joint with Synthetic Substitute, Cemented, Open Approach (ICD-10-PCS; principal; 2019-03-05 10:00)
DX: M17.11 Unilateral primary osteoarthritis, right knee (principal); Z82.3 Family history of stroke; Z82.49 Family history of ischemic heart disease and other diseases of the circulatory system; Z90.710 Acquired absence of both cervix and uterus; I50.9 Heart failure, unspecified; I48.0 Paroxysmal atrial fibrillation
CPT/HCPCS: 36415; 73560; 85014; 85018; 85610; 86850; 86900; 86901; A7015; C1713; J0171; J0696; J1100; J1885; J2001; J2270; J2405; J2704; J2710; J2765; J2795; J3010; J3260; J3370; J3490; J7030; J7120; Q0162; 97116; 97150; 97530; 97535; A4461; C1769; G0378

== ENCOUNTER 2019-03-12 09:07 | Inpatient (IN) | payer OTHER, MEDICARE ==
[~2019-03-12] VITALS: Ht 162.6 cm; Wt 73.9 kg
[~2019-03-12 09:07] MED LIST changes: +CELE100C PO; +CELE200C PO; +FERR-36 PO; -HYDROmorphone 2 MG/ML VIAL IV PRN; -IV RINGERS,LACTATED 1000ML 1,000 ML IV SCH; -MORPHINE SULFATE 2 MG/ML VIAL. IV PRN; -MORPHINE SULFATE 5 MG, KETOROLAC 30MG VIAL 30 MG, ROPIVacaine 0.5% PF 60 ML, EPINEPHrin... INT ART ONE; +OXYC1TAB15 PO; -PROCHLORPERAZINE 10 MG/2 ML VIAL. IV PRN; -TRANEXAMIC ACID 1,000 MG in IV NORMAL SALINE 50ML 50 ML INJ ONE; -fentaNYL PF VIAL 100 MCG/2 ML VIAL IV PRN
--- NOTE | 2019-03-12 10:36 | PHYS DOC ---
Past Medical History Past Medical History: A-Fib Past Surgical History: Hysterectomy Alcohol Use: None Drug Use: None Adult General Chief Complaint Chief Complaint: CONTISPATION HPI HPI Patient is a 73 year old female who presents with headache right total knee on March 05. Patient states she has not taken any pain medication since then. She states that she had her last bowel movement on March 05. Patient states she has been trying to get stool out by trying to disimpact herself. She states she's also been taking stool softeners. Patient states she has a history of diverticulitis and has been having left lower quadrant pain that comes and goes. She states 2 days ago she had some vomiting but thinks it's from medications. She rates her current discomfort 8 out of 10. Review of Systems Review of Systems GI: LLQ abdominal pain, constipation, denies nausea, 2 days ago vomiting, bloody stools or diarrhea [] All other systems were reviewed and found to be within normal limits, except as documented in this note. Current Medications Current Medications Current Medications Medications (Trade) Dose Ordered Sig/Alberta Start Time Stop Time Status Last Admin Dose Admin Iohexol (Omnipaque 300 Mg/ml) 75 ml 1X ONCE 03/12/19 11:45 03/12/19 11:46 DC Magnesium Citrate (Citroma) 296 ml STK-MED ONCE 03/12/19 12:57 03/12/19 12:58 DC Sodium Chloride 1,000 ml @ 1,000 mls/hr 1X ONCE 03/12/19 11:15 03/12/19 12:21 DC 03/12/19 11:58 1,000 MLS/HR Allergies Allergies Allergies Coded Allergies Type Severity Reaction Last Updated Verified No Known Drug Allergies 03/05/19 No Physical Exam Physical Exam Constitutional: Well developed, well nourished, no acute distress, non-toxic appearance. [] HENT: Normocephalic, atraumatic, bilateral external ears normal, oropharynx moist, no oral exudates, nose normal. [] Eyes: PERRLA, EOMI, conjunctiva normal, no discharge. [] Neck: Normal range of motion, no tenderness, supple, no stridor. [] Cardiovascular:Heart rate regular rhythm, no murmur [] Lungs & Thorax: Bilateral breath sounds clear to auscultation [] Abdomen: Bowel sounds normal, soft, no tenderness, no masses, no pulsatile masses. Blood on outside of rectum. [] Skin: Warm, dry, no erythema, no rash. [] Back: No tenderness, no CVA tenderness. [] Extremities: No tenderness, no cyanosis, no clubbing, ROM intact, no edema. [] Neurologic: Alert and oriented X 3, normal motor function, normal sensory function, no focal deficits noted. [] Psychologic: Affect normal, judgement normal, mood normal. [] Current Patient Data Vital Signs Vital Signs Date Time Temp Pulse Resp B/P (MAP) Pulse Ox O2 Delivery O2 Flow Rate FiO2 03/12/19 10:30 97.8 77 18 141/72 (95) 98 Room Air 97.8 Lab Values Laboratory Tests Test 03/12/19 10:50 03/12/19 11:05 White Blood Count 6.5 x10^3/uL (4.0-11.0) Red Blood Count 4.03 x10^6/uL (3.50-5.40) Hemoglobin 12.3 g/dL (12.0-15.5) Hematocrit 36.4 % (36.0-47.0) Mean Corpuscular Volume 90 fL (79-100) Mean Corpuscular Hemoglobin 31 pg (25-35) Mean Corpuscular Hemoglobin Concent 34 g/dL (31-37) Red Cell Distribution Width 13.6 % (11.5-14.5) Platelet Count 240 x10^3/uL (140-400) Neutrophils (%) (Auto) 79 % (31-73) H Lymphocytes (%) (Auto) 8 % (24-48) L Monocytes (%) (Auto) 11 % (0-9) H Eosinophils (%) (Auto) 1 % (0-3) Basophils (%) (Auto) 1 % (0-3) Neutrophils # (Auto) 5.1 x10^3/uL (1.8-7.7) Lymphocytes # (Auto) 0.5 x10^3/uL (1.0-4.8) L Monocytes # (Auto) 0.7 x10^3/uL (0.0-1.1) Eosinophils # (Auto) 0.1 x10^3/uL (0.0-0.7) Basophils # (Auto) 0.0 x10^3/uL (0.0-0.2) Stool Occult Blood Positive (NEG) Sodium Level 137 mmol/L (136-145) Potassium Level 4.1 mmol/L (3.5-5.1) Chloride Level 101 mmol/L (98-107) Carbon Dioxide Level 31 mmol/L (21-32) Anion Gap 5 (6-14) L Blood Urea Nitrogen 15 mg/dL (7-20) Creatinine 0.6 mg/dL (0.6-1.0) Estimated GFR (Cockcroft-Gault) 97.5 BUN/Creatinine Ratio 25 (6-20) H Glucose Level 141 mg/dL (70-99) H Calcium Level 8.9 mg/dL (8.5-10.1) Total Bilirubin 0.8 mg/dL (0.2-1.0) Aspartate Amino Transferase (AST) 13 U/L (15-37) L Alanine Aminotransferase (ALT) 32 U/L (14-59) Alkaline Phosphatase 73 U/L (46-116) Total Protein 6.9 g/dL (6.4-8.2) Albumin 2.9 g/dL (3.4-5.0) L Albumin/Globulin Ratio 0.7 (1.0-1.7) L Urine Collection Type Void Urine Color Evonne Urine Clarity Cloudy Urine pH 6.5 Urine Specific [place] 1.020 Urine Protein Negative mg/dL (NEG-TRACE) Urine Glucose (UA) 100 mg/dL (NEG) Urine Ketones (Stick) Trace mg/dL (NEG) Urine Blood Moderate (NEG) Urine Nitrite Negative (NEG) Urine Bilirubin Small (NEG) Urine Urobilinogen Dipstick 1.0 mg/dL (0.2 mg/dL) Urine Leukocyte Esterase Small (NEG) Urine RBC 3-5 /HPF (0-2) Urine WBC 1-4 /HPF (0-4) Urine Squamous Epithelial Cells Few /LPF Urine Bacteria Few /HPF (0-FEW) Laboratory Tests 03/12/19 10:50 Laboratory Tests 03/12/19 10:50 EKG EKG [] Radiology/Procedures Radiology/Procedures [] Impressions: [facility] [address] [place] [address] IMAGING REPORT Signed PATIENT: NELI ROD Isis Davis ACCOUNT: [id number] : 1945 LOCATION: ER AGE: 73 SEX: F EXAM STATUS: REG ER ORD. PHYSICIAN: UZMA DRAPER APRN REASON: abdominal pain, constipation, bleeding fropm rectum PROCEDURE: CT ABD PELV W/ IV CONTRST ONLY EXAM: CT Abdomen and Pelvis with IV contrast CLINICAL HISTORY: Abdominal pain, constipation, rectal bleeding COMPARISON: 07/03/2017 TECHNIQUE: Helical CT of the abdomen and pelvis was performed following the administration of intravenous contrast. Axial, coronal and sagittal reformatted images were generated. PQRS compliance statement - One or more of the following individualized dose reduction techniques were utilized for this study: 1. Automated exposure control 2. Adjustment of the mA and/or kV according to patient size 3. Use of iterative reconstruction technique FINDINGS: Lower chest: Prominent calcified granuloma left lower lobe. Emphysematous changes are seen. Coronary artery and mitral annular calcifications are partially profiled. Heart is mildly enlarged. Abdomen and Pelvis: Relative hepatic hypoattenuation may be seen with fatty liver. Subcentimeter hypodense left hepatic lobe lesion is too small to accurately characterize. Scattered calcified granulomas are seen within the spleen. Spleen measures 14 cm in AP dimension, mildly enlarged. Gallbladder is grossly normal. No biliary ductal dilatation. Pancreas is unremarkable. Symmetric nephrograms. Multiple bilateral left greater than right parapelvic renal cysts are seen. No hydronephrosis or hydroureter. The moderately distended bladder is otherwise unremarkable. Moderate colonic stool content is seen. Marked stool content within the rectum. Associated mild infiltration is seen. No small or large bowel dilatation. No evidence for bowel obstruction. Appendix is not definitively seen however no significant right lower quadrant fat which changes are seen. No abdominal or pelvic ascites. No abdominal pelvic lymphadenopathy. Circumaortic left renal vein is incidentally seen. There are intermittent atherosclerotic calcifications of the aorta are seen. Fat and small bowel containing right inguinal hernia without associated bowel dilatation or inflammatory change. Fat-containing left inguinal hernia is also seen. Small fat-containing periumbilical hernia is noted. Bones: Degenerative changes of the spine are seen. No aggressive osseous lesion. Decreased bone mineral density. IMPRESSION: 1. Marked stool content within the rectum with associated inflammatory change, likely from stercoral colitis. Distal anorectal mass is not entirely excluded and can be correlated with physical examination/rectal examination and/or endoscopic evaluation. 2. No bowel obstruction. 3. Relative hepatic hypoattenuation may be seen with fatty liver. 4. Mild splenomegaly. 5. Bilateral inguinal and periumbilical fat-containing hernias are seen. The right inguinal hernia also contains a short segment of normal-appearing decompressed small bowel. No associated obstruction. Electronically signed by: Germain Flores MD (03/12/2019 12:31 PM) [id number] DICTATED and SIGNED BY: GERMAIN FLORES MD DATE: 03/12/19 1231 Course & Med Decision Making Course & Med Decision Making Alert and oriented. Walks with a walker. Abdomen is soft and nontender. Upon rectal exam I can feel the stool at the tip of my finger and got a small amount of stool out of the patient, but the patient was not tolerating well. This caused patient a lot of pain. There was blood in the stool in blood on the outside of the rectum. Patient does have a hemorrhoid on the outside of the rectum at approximately 9:00 that is nonthrombosed and does not look to be bleeding. Patient states that the stool softeners have allowed her to get some watery fluid stool out. Speaks in full clear sentences. Patient states she has been eating and drinking. Patient states "I am not leaving until the stool comes out". She denies chest pain, shortness of air, nausea, numbness or tingling, headache, dizziness, syncope, fever, visual changes, weakness. Patient states she is currently taking 81 mg aspirin daily. IMPRESSION: 1. Marked stool content within the rectum with associated inflammatory change, likely from stercoral colitis. Distal anorectal mass is not entirely excluded and can be correlated with physical examination/rectal examination and/or endoscopic evaluation. 2. No bowel obstruction. 3. Relative hepatic hypoattenuation may be seen with fatty liver. 4. Mild splenomegaly. 5. Bilateral inguinal and periumbilical fat-containing hernias are seen. The right inguinal hernia also contains a short segment of normal-appearing decompressed small bowel. No associated obstruction. I have spoken to Dr Padilla about this patient and the care plan. I have spoken to Dr Chawla for admission. Rectal Exam: Normal tone, No mass, Positive control, Stool in upper rectal vault Stool: Brown Guaiac: Positive Dragon Disclaimer Dragon Disclaimer This electronic medical record was generated, in whole or in part, using a voice recognition dictation system. Departure Departure Impression: Primary Impression: Bloody stool Additional Impression: Constipation Disposition: ADMITTED INPATIENT Admitting Physician: ILA Condition: STABLE Referrals: LETICIA MTZ MD (PCP) Problem Qualifiers Additional Impression: Constipation Constipation type: unspecified constipation type Qualified Codes: K59.00 - Constipation, unspecified UZMA DRAPER SCHOOL OPERATIONS MANAGER Mar 12, 2019 10:36
[2019-03-12 11:05] LABS: BASO % 1 % (0-3); EOS # 0.1 x10^3/uL (0.0-0.7); EOS % 1 % (0-3); HEMATOCRIT 36.4 % (36.0-47.0); HEMOGLOBIN 12.3 g/dL (12.0-15.5); LYMPH # 0.5 x10^3/uL (1.0-4.8); LYMPH % 8 % (24-48); MEAN CORPUSCULAR HEMOGLOBIN 31 pg (25-35); MEAN CORPUSCULAR HGB CONC 34 g/dL (31-37); MEAN CORPUSCULAR VOLUME 90 fL (79-100); MONO # 0.7 x10^3/uL (0.0-1.1); MONO % 11 % (0-9); NEUT # 5.1 x10^3/uL (1.8-7.7); NEUT % 79 % (31-73); PLATELET COUNT 240 x10^3/uL (140-400); RED BLOOD COUNT 4.03 x10^6/uL (3.50-5.40); RED CELL DISTRIBUTION WIDTH 13.6 % (11.5-14.5); WHITE BLOOD COUNT 6.5 x10^3/uL (4.0-11.0)
[2019-03-12 11:08] LABS: CALCIUM 8.9 mg/dL (8.5-10.1); CREATININE 0.6 mg/dL (0.6-1.0); GFR 97.5; POTASSIUM 4.1 mmol/L (3.5-5.1)
[2019-03-12 11:12] LABS: ALBUMIN 2.9 g/dL (3.4-5.0); ALBUMIN/GLOBULIN RATIO 0.7 (1.0-1.7); FECAL OB PT POSITIVE (NEG); TOTAL BILIRUBIN 0.8 mg/dL (0.2-1.0); TOTAL PROTEIN 6.9 g/dL (6.4-8.2)
[2019-03-12] MEDS ORDERED: IV NORMAL SALINE 1000ML BAG 1,000 ML IV ONE (11:15)
[2019-03-12 11:17] LABS: BILIRUBIN,URINE SMALL (NEG); CLARITY,URINE CLOUDY; COLOR,URINE AMBER; NITRITE,URINE NEGATIVE (NEG); PH,URINE 6.5; PROTEIN,URINE NEGATIVE (NEG-TRACE)
[2019-03-12 11:28] LABS: BACTERIA,URINE FEW /HPF (0-FEW); SQUAMOUS EPITHELIAL CELL,UR FEW /LPF
[2019-03-12] MEDS ORDERED: IOHEXOL 300 MG/ML 100ML VIAL. IV ONE (11:45)
--- NOTE | 2019-03-12 12:34 | RAD ---
EXAM: CT Abdomen and Pelvis with IV contrast CLINICAL HISTORY: Abdominal pain, constipation, rectal bleeding COMPARISON: 07/03/2017 TECHNIQUE: Helical CT of the abdomen and pelvis was performed following the administration of intravenous contrast. Axial, coronal and sagittal reformatted images were generated. PQRS compliance statement - One or more of the following individualized dose reduction techniques were utilized for this study: 1. Automated exposure control 2. Adjustment of the mA and/or kV according to patient size 3. Use of iterative reconstruction technique FINDINGS: Lower chest: Prominent calcified granuloma left lower lobe. Emphysematous changes are seen. Coronary artery and mitral annular calcifications are partially profiled. Heart is mildly enlarged. Abdomen and Pelvis: Relative hepatic hypoattenuation may be seen with fatty liver. Subcentimeter hypodense left hepatic lobe lesion is too small to accurately characterize. Scattered calcified granulomas are seen within the spleen. Spleen measures 14 cm in AP dimension, mildly enlarged. Gallbladder is grossly normal. No biliary ductal dilatation. Pancreas is unremarkable. Symmetric nephrograms. Multiple bilateral left greater than right parapelvic renal cysts are seen. No hydronephrosis or hydroureter. The moderately distended bladder is otherwise unremarkable. Moderate colonic stool content is seen. Marked stool content within the rectum. Associated mild infiltration is seen. No small or large bowel dilatation. No evidence for bowel obstruction. Appendix is not definitively seen however no significant right lower quadrant fat which changes are seen. No abdominal or pelvic ascites. No abdominal pelvic lymphadenopathy. Circumaortic left renal vein is incidentally seen. There are intermittent atherosclerotic calcifications of the aorta are seen. Fat and small bowel containing right inguinal hernia without associated bowel dilatation or inflammatory change. Fat-containing left inguinal hernia is also seen. Small fat-containing periumbilical hernia is noted. Bones: Degenerative changes of the spine are seen. No aggressive osseous lesion. Decreased bone mineral density. IMPRESSION: 1. Marked stool content within the rectum with associated inflammatory change, likely from stercoral colitis. Distal anorectal mass is not entirely excluded and can be correlated with physical examination/rectal examination and/or endoscopic evaluation. 2. No bowel obstruction. 3. Relative hepatic hypoattenuation may be seen with fatty liver. 4. Mild splenomegaly. 5. Bilateral inguinal and periumbilical fat-containing hernias are seen. The right inguinal hernia also contains a short segment of normal-appearing decompressed small bowel. No associated obstruction. Electronically signed by: Germain Valiente MD (03/12/2019 12:31 PM) [id number]
[2019-03-12] MEDS ORDERED: MAGNESIUM CITRATE 296 ML SOLUTION. ONE (12:57)
[2019-03-12] MEDS ORDERED: MAGNESIUM CITRATE 296 ML SOLUTION. PO ONE (13:00)
--- NOTE | 2019-03-12 13:10 | PDOC1 ---
History and Physical Date of Admission Date of Admission DATE: 03/12/19 TIME: 13:09 Identification/Chief Complaint Chief Complaint 73 year old female who presents with headache right total knee on March 05. Patient states she has not taken any pain medication since then. She states that she had her last bowel movement on March 05. Patient states she has been trying to get stool out by trying to disimpact herself. She states she's also been taking stool softeners. Patient states she has a history of diverticulitis and has been having left lower quadrant pain that comes and goes, Fecal impaction noted in ER NOTES NORMAL COLONOSCOPY WITH DR MAHMOOD 1-2 YRS AGO Past Medical History Cardiovascular: AFIB, CHF, Valve insufficiency Pulmonary: Other Hepatobiliary: No pertinent hx Endocrine: Other Past Surgical History Past Surgical History: Hernia Repair, Hysterectomy Family History Family History: Hypertension Social History Smoke: No ALCOHOL: none Drugs: None Current Problem List Problem List Problems Medical Problems: (1) Bloody stool Status: Acute (2) Constipation Status: Acute Current Medications Current Medications Current Medications Sodium Chloride 1,000 ml @ 1,000 mls/hr 1X ONCE IV Last administered on 03/12/19at 11:58; Start 03/12/19 at 11:15; Stop 03/12/19 at 12:21; Status DC Iohexol (Omnipaque 300 Mg/ml) 75 ml 1X ONCE IV ; Start 03/12/19 at 11:45; Stop 03/12/19 at 11:46; Status DC Magnesium Citrate (Citroma) 296 ml 1X ONCE PO ; Start 03/12/19 at 13:00; Stop 03/12/19 at 13:01; Status DC Magnesium Citrate (Citroma) 296 ml STK-MED ONCE .ROUTE ; Start 03/12/19 at 12:57; Stop 03/12/19 at 12:58; Status DC Active Scripts Active Celebrex (Celecoxib) 100 Mg Capsule 200 Mg PO DAILY 30 Days Take Celebrex 200 mg daily by mouth for 30 days. Percocet 5-325 Mg Tablet (Oxycodone/Acetaminophen) 1 Each Tablet 1-2 Tab PO PRN Q4HRS PRN 14 Days Take 1-2 tablets by mouth every 4 hours as needed for pain. Aspirin 81 Mg Tab.chew 81 Mg PO DAILY 30 Days Take 81 mg (low-dose) aspirin by mouth twice a day for 30 days, then resume your normal 81 mg aspirin daily. Metoprolol Tartrate 25 Mg Tablet 25 Mg PO BID 60 Days Flecainide Acetate 50 Mg Tablet 100 Mg PO Q12HR 60 Days Reported Celebrex (Celecoxib) 200 Mg Capsule 1 Cap PO ONCE Vitamin D3 (Cholecalciferol (Vitamin D3)) 10,000 Unit Capsule 5,000 Unit PO DAILY Klor-Con M20 (Potassium Chloride) 20 Meq Tab.er.prt 20 Meq PO DAILY Furosemide 20 Mg Tablet 1 Tab PO DAILY Allergies Allergies: Coded Allergies: No Known Drug Allergies (Unverified , 03/05/19) ROS Review of System GI: LLQ abdominal pain, constipation, denies nausea, 2 days ago vomiting, POS b loody stools NO diarrhea [] 14 systems were reviewed and found to be within normal limits, except as documented General: No: Chills, Night Sweats, Fatigue, Malaise, Appetite, Other HEENT: No: Heacaches, Visual Changes, Hearing change, Nasal congestion, Nasal discharge, Oral lesions, Sinus pain, Sore Throat, Epistaxis, Sneezing, Snoring, Tinnitus, Vertigo, Vocal changes, Other ALLERGY AND IMMUNOLOGY: No: Hives, Insect Bite Sensitivity, Itchy/Watery Eyes, Nasal Congestion, Post Nasal Drip, Seasonal Allergies, Other Hematological and Lymphatic: YES: Bleeding Problems Breast: No New/Changing Breast Lumps, No Nipple changes, No Nipple discharge, No Other Respiratory: No: Cough, Hemoptysis, Orthopnea, Pleuritic Pain, Shortness of breath, SOB with excertion, Sputum Changes, Stridor, Tachypnea, Wheezing, Other Cardiovascular: No Chest Pain, No Palpitations, No Orthopnea, No Paroxysmal Noc. Dyspnea, No Edema, No Lt Headedness, No Other Gastrointestinal: Yes Constipation Genitourinary: No Dysuria, No Frequency, No Incontinence, No Hematuria, No Retention, No Discharge, No Urgency, No Pain, No Flank Pain, No Other, No , No , No , No , No , No , No Musculoskeletal: No Gait Disturbance, No Joint Pain, No Joint Stiffness, No Joint Swelling, No Muscle Pain, No Muscular Weakness, No Pain In:, No Swelling In:, No Other Neurological: No Behavorial Changes, No Bowel/Bladder ControlChng, No Confusion, No Dizziness, No Gait Disturbance, No Headaches, No Impaired Coord/balance, No Memory Loss, No Numbness/Tingling, No Seizures, No Speech Pr oblems, No Tremors, No Visual Changes, No Weakness, No Other Skin: No Dry Skin, No Eczema, No Hair Changes, No Lumps, No Mole Changes, No Mottling, No Nail Changes, No Pruritus, No Rash, No Skin Lesion Changes, No Other, No Acne Physical Exam Physical Exam Physical Exam Physical Exam Constitutional: Well developed, well nourished, no acute distress, non-toxic appearance. [] HENT: Normocephalic, atraumatic, bilateral external ears normal, oropharynx moist, no oral exudates, nose normal. [] Eyes: PERRLA, EOMI, conjunctiva normal, no discharge. [] Neck: Normal range of motion, no tenderness, supple, no stridor. [] Cardiovascular:Heart rate regular rhythm, no murmur [] Lungs & Thorax: Bilateral breath sounds clear to auscultation [] Abdomen: Bowel sounds normal, soft, no tenderness, no masses, no pulsatile masses. Blood on outside of rectum. , STOOL DIS-IMPACTED BY RN IN ER [] Skin: Warm, dry, no erythema, no rash. [] Back: No tenderness, no CVA tenderness. [] Extremities: No tenderness, no cyanosis, no clubbing, ROM intact, no edema. [] Neurologic: Alert and oriented X 3, normal motor function, normal sensory function, no focal deficits noted. [] Psychologic: Affect normal, judgement normal, mood normal. [] General: Alert, Oriented X3, Cooperative, No acute distress HEENT: Atraumatic, EOMI Lungs: Clear to auscultation, Normal air movement Heart: RRR, no thrills Breasts: Not examined Abdomen: Normal bowel sounds, Soft, No tenderness, No hepatosplenomegaly Rectal Exam: deferred PELVIC: Examination not indicated Extremities: No clubbing, No cyanosis Neuro: Normal speech, Strength at 5/5 X4 ext, Cranial nerves 3-12 NL Psych/Mental Status: Mental status NL, Mood NL Vitals Vitals Vital Signs Date Time Temp Pulse Resp B/P (MAP) Pulse Ox O2 Delivery O2 Flow Rate FiO2 03/12/19 10:30 97.8 77 18 141/72 (95) 98 Room Air 97.8 Labs Labs Laboratory Tests Test 03/12/19 10:50 03/12/19 11:05 White Blood Count 6.5 x10^3/uL (4.0-11.0) Red Blood Count 4.03 x10^6/uL (3.50-5.40) Hemoglobin 12.3 g/dL (12.0-15.5) Hematocrit 36.4 % (36.0-47.0) Mean Corpuscular Volume 90 fL (79-100) Mean Corpuscular Hemoglobin 31 pg (25-35) Mean Corpuscular Hemoglobin Concent 34 g/dL (31-37) Red Cell Distribution Width 13.6 % (11.5-14.5) Platelet Count 240 x10^3/uL (140-400) Neutrophils (%) (Auto) 79 % (31-73) Lymphocytes (%) (Auto) 8 % (24-48) Monocytes (%) (Auto) 11 % (0-9) Eosinophils (%) (Auto) 1 % (0-3) Basophils (%) (Auto) 1 % (0-3) Neutrophils # (Auto) 5.1 x10^3/uL (1.8-7.7) Lymphocytes # (Auto) 0.5 x10^3/uL (1.0-4.8) Monocytes # (Auto) 0.7 x10^3/uL (0.0-1.1) Eosinophils # (Auto) 0.1 x10^3/uL (0.0-0.7) Basophils # (Auto) 0.0 x10^3/uL (0.0-0.2) Stool Occult Blood Positive (NEG) Sodium Level 137 mmol/L (136-145) Potassium Level 4.1 mmol/L (3.5-5.1) Chloride Level 101 mmol/L (98-107) Carbon Dioxide Level 31 mmol/L (21-32) Anion Gap 5 (6-14) Blood Urea Nitrogen 15 mg/dL (7-20) Creatinine 0.6 mg/dL (0.6-1.0) Estimated GFR (Cockcroft-Gault) 97.5 BUN/Creatinine Ratio 25 (6-20) Glucose Level 141 mg/dL (70-99) Calcium Level 8.9 mg/dL (8.5-10.1) Total Bilirubin 0.8 mg/dL (0.2-1.0) Aspartate Amino Transf (AST/SGOT) 13 U/L (15-37) Alanine Aminotransferase (ALT/SGPT) 32 U/L (14-59) Alkaline Phosphatase 73 U/L (46-116) Total Protein 6.9 g/dL (6.4-8.2) Albumin 2.9 g/dL (3.4-5.0) Albumin/Globulin Ratio 0.7 (1.0-1.7) Urine Collection Type Void Urine Color Evonne Urine Clarity Cloudy Urine pH 6.5 Urine Specific [place] 1.020 Urine Protein Negative mg/dL (NEG-TRACE) Urine Glucose (UA) 100 mg/dL (NEG) Urine Ketones (Stick) Trace mg/dL (NEG) Urine Blood Moderate (NEG) Urine Nitrite Negative (NEG) Urine Bilirubin Small (NEG) Urine Urobilinogen Dipstick 1.0 mg/dL (0.2 mg/dL) Urine Leukocyte Esterase Small (NEG) Urine RBC 3-5 /HPF (0-2) Urine WBC 1-4 /HPF (0-4) Urine Squamous Epithelial Cells Few /LPF Urine Bacteria Few /HPF (0-FEW) Laboratory Tests Test 03/12/19 10:50 03/12/19 11:05 White Blood Count 6.5 x10^3/uL (4.0-11.0) Red Blood Count 4.03 x10^6/uL (3.50-5.40) Hemoglobin 12.3 g/dL (12.0-15.5) Hematocrit 36.4 % (36.0-47.0) Mean Corpuscular Volume 90 fL (79-100) Mean Corpuscular Hemoglobin 31 pg (25-35) Mean Corpuscular Hemoglobin Concent 34 g/dL (31-37) Red Cell Distribution Width 13.6 % (11.5-14.5) Platelet Count 240 x10^3/uL (140-400) Neutrophils (%) (Auto) 79 % (31-73) Lymphocytes (%) (Auto) 8 % (24-48) Monocytes (%) (Auto) 11 % (0-9) Eosinophils (%) (Auto) 1 % (0-3) Basophils (%) (Auto) 1 % (0-3) Neutrophils # (Auto) 5.1 x10^3/uL (1.8-7.7) Lymphocytes # (Auto) 0.5 x10^3/uL (1.0-4.8) Monocytes # (Auto) 0.7 x10^3/uL (0.0-1.1) Eosinophils # (Auto) 0.1 x10^3/uL (0.0-0.7) Basophils # (Auto) 0.0 x10^3/uL (0.0-0.2) Stool Occult Blood Positive (NEG) Sodium Level 137 mmol/L (136-145) Potassium Level 4.1 mmol/L (3.5-5.1) Chloride Level 101 mmol/L (98-107) Carbon Dioxide Level 31 mmol/L (21-32) Anion Gap 5 (6-14) Blood Urea Nitrogen 15 mg/dL (7-20) Creatinine 0.6 mg/dL (0.6-1.0) Estimated GFR (Cockcroft-Gault) 97.5 BUN/Creatinine Ratio 25 (6-20) Glucose Level 141 mg/dL (70-99) Calcium Level 8.9 mg/dL (8.5-10.1) Total Bilirubin 0.8 mg/dL (0.2-1.0) Aspartate Amino Transf (AST/SGOT) 13 U/L (15-37) Alanine Aminotransferase (ALT/SGPT) 32 U/L (14-59) Alkaline Phosphatase 73 U/L (46-116) Total Protein 6.9 g/dL (6.4-8.2) Albumin 2.9 g/dL (3.4-5.0) Albumin/Globulin Ratio 0.7 (1.0-1.7) Urine Collection Type Void Urine Color Evonne Urine Clarity Cloudy Urine pH 6.5 Urine Specific [place] 1.020 Urine Protein Negative mg/dL (NEG-TRACE) Urine Glucose (UA) 100 mg/dL (NEG) Urine Ketones (Stick) Trace mg/dL (NEG) Urine Blood Moderate (NEG) Urine Nitrite Negative (NEG) Urine Bilirubin Small (NEG) Urine Urobilinogen Dipstick 1.0 mg/dL (0.2 mg/dL) Urine Leukocyte Esterase Small (NEG) Urine RBC 3-5 /HPF (0-2) Urine WBC 1-4 /HPF (0-4) Urine Squamous Epithelial Cells Few /LPF Urine Bacteria Few /HPF (0-FEW) Images Images Operative Note Operative Note Date of Procedure: March 05, 2019 Pre-Op Diagnosis: Unilateral primary osteoarthritis, right knee. M17.11 Post-Op Diagnosis: same Procedure: right total knee arthroplasty with patella resurfacing, robotic assisted, CPT 53573 Surgeon: Cornelio Aguero MD Hse Advisor: Janeth GARCIA Anesthesia: General EBL: 100 mL Specimens Obtained: right knee bone and soft tissue Complications: none Drains: Hemovac plus pain catheter Tourniquet time: 72 Minutes Tourniquet Pressure: 300 mm Hg Indications for Procedure: Knee arthritis pain, affecting quality of life, unrelieved by nonoperative management CLINICAL HISTORY: Abdominal pain, constipation, rectal bleeding COMPARISON: 07/03/2017 TECHNIQUE: Helical CT of the abdomen and pelvis was performed following the administration of intravenous contrast. Axial, coronal and sagittal reformatted images were generated. PQRS compliance statement - One or more of the following individualized dose reduction techniques were utilized for this study: 1. Automated exposure control 2. Adjustment of the mA and/or kV according to patient size 3. Use of iterative reconstruction technique FINDINGS: Lower chest: Prominent calcified granuloma left lower lobe. Emphysematous changes are seen. Coronary artery and mitral annular calcifications are partially profiled. Heart is mildly enlarged. Abdomen and Pelvis: Relative hepatic hypoattenuation may be seen with fatty liver. Subcentimeter hypodense left hepatic lobe lesion is too small to accurately characterize. Scattered calcified granulomas are seen within the spleen. Spleen measures 14 cm in AP dimension, mildly enlarged. Gallbladder is grossly normal. No biliary ductal dilatation. Pancreas is unremarkable. Symmetric nephrograms. Multiple bilateral left greater than right parapelvic renal cysts are seen. No hydronephrosis or hydroureter. The moderately distended bladder is otherwise unremarkable. Moderate colonic stool content is seen. Marked stool content within the rectum. Associated mild infiltration is seen. No small or large bowel dilatation. No evidence for bowel obstruction. Appendix is not definitively seen however no significant right lower quadrant fat which changes are seen. No abdominal or pelvic ascites. No abdominal pelvic lymphadenopathy. Circumaortic left renal vein is incidentally seen. There are intermittent atherosclerotic calcifications of the aorta are seen. Fat and small bowel containing right inguinal hernia without associated bowel dilatation or inflammatory change. Fat-containing left inguinal hernia is also seen. Small fat-containing periumbilical hernia is noted. Bones: Degenerative changes of the spine are seen. No aggressive osseous lesion. Decreased bone mineral density. IMPRESSION: 1. Marked stool content within the rectum with associated inflammatory change, likely from stercoral colitis. Distal anorectal mass is not entirely excluded and can be correlated with physical examination/rectal examination and/or endoscopic evaluation. 2. No bowel obstruction. 3. Relative hepatic hypoattenuation may be seen with fatty liver. 4. Mild splenomegaly. 5. Bilateral inguinal and periumbilical fat-containing hernias are seen. The right inguinal hernia also contains a short segment of normal-appearing decompressed small bowel. No associated obstruction. Electronically signed by: Germain Flores MD (03/12/2019 12:31 PM) [id number] DICTATED and SIGNED BY: GERMAIN FLORES MD DATE: 03/12/19 1231 VTE Prophylaxis Ordered VTE Prophylaxis Devices: Yes VTE Pharmacological Prophylaxi: Yes Assessment/Plan Assessment/Plan IMPRESSION: 1. Marked stool content within the rectum with associated inflammatory change, likely from stercoral colitis. Distal anorectal mass is not entirely excluded and can be correlated with physical examination/rectal examination and/or endoscopic evaluation. 2. No bowel obstruction. 3. Relative hepatic hypoattenuation may be seen with fatty liver. 4. Mild splenomegaly. 5. Bilateral inguinal and periumbilical fat-containing hernias 6. FECAL IMPACTION 7. RECTAL BLEEDING, Hemorrhoids PLAN ADMIT GI CONSULT BOWEL REGIMEN IV FLUID SUPPORT NUNO DELACRUZ MD Mar 12, 2019 13:10
[2019-03-12] MEDS ORDERED: ACETAMINOPHEN 325 MG TABLET. PO PRN ×2 (13:15→15:45)
[2019-03-12] MEDS ORDERED: ONDANSETRON PF 4 MG/2 ML VIAL. IV PRN ×2 (13:15→15:45)
[2019-03-12] MEDS ORDERED: fentaNYL PF VIAL 100 MCG/2 ML VIAL IV PRN (13:15)
[2019-03-12] MEDS ORDERED: LORazepam 0.5 MG TABLET PO PRN (15:45)
[2019-03-12] MEDS ORDERED: MAG HYDROX/ALUMINUM HYD/SIMETH 30 ML ORAL.SUSP PO PRN (15:45)
[2019-03-12] MEDS ORDERED: SODIUM PHOSPHATES 19/7GM 133 ML ENEMA. PR PRN (15:45)
[2019-03-12] MEDS ORDERED: 0.9 % SODIUM CHLORIDE 10 ML DISP.SYRIN. IV PRN (15:45)
[2019-03-12] MEDS ORDERED: DOCUSATE SODIUM 100 MG CAPSULE. PO PRN (15:45)
[2019-03-12] MEDS ORDERED: guaiFENesin ORAL 200 MG/10 ML LIQUID. PO PRN (15:45)
[2019-03-12] MEDS ORDERED: ALBUTEROL SULFATE 2.5 MG/3 ML NEBU. NEB PRN (15:45)
--- NOTE | 2019-03-12 16:09 | PDOC2 ---
GI CONSULT Reason For Consult: Fecal impaction, rectal bleeding HPI: HPI: Pleasant 73 y/o female who had right knee replacement on 03/05/19. Took Percocet while in the hospital, continued Celebrex at home. Says she has no knee pain - just soreness. Typically has a loose stool in the morning, then has to go back inside while trying to leave for work and have another, then has to stop at a gas station on the way to work to have another stool. This has been her bowel pattern for about 3 years. Fiber suggested in the past (which I don't think she tried). Prior to that, she took Miralax regularly to avoid constipation as recommended by the surgeon who performed her hysterectomy. Has not stooled since the day of knee replacement. Significant straining at home w/ minimal amount of rectal bleeding (red blood). Bleeding is not unusual for her - notes rectal bleeding "for about a half a day" once a month - a chronic issue. Has also noted some heartburn - began while admitted after surgery, none now. Normal Hgb and BUN. On CT: moderate stool, marked stool in rectum w/ inflammation (possible stercoral colitis). Received enema and was disimpacted in ER, also drank Mag Citrate. No h/o reflux, dysphagia, n/v, abd pain, melena, or weight loss. Colonoscopy [place] [address] Carroll w/ hyperplastic polyp, diverticulosis, and hemorrhoids. Takes ASA 81mg QD. PMH: PMH: A Fib, renal cysts right knee arthroscopy, right knee replacement, hysterectomy FH: Family History: No pertinent hx Social History: Smoke: No ALCOHOL: none Drugs: None ROS: GEN: Denies fevers, chills, sweats HEENT: Denies blurred vision, sore throat CV: Denies chest pain RESP: Denies shortness of air, cough GI: Per HPI : Denies hematuria, dysuria ENDO: Denies weight changes NEURO: Denies confusion, dizziness MSK: Denies weakness, joint pain/swelling SKIN: Denies jaundice, pruritus Vitals: Vitals: Vital Signs Date Time Temp Pulse Resp B/P (MAP) Pulse Ox O2 Delivery O2 Flow Rate FiO2 03/12/19 14:03 76 185/90 (121) 94 Room Air 03/12/19 10:30 97.8 18 97.8 Labs: Labs: Laboratory Tests Test 03/12/19 10:50 03/12/19 11:05 White Blood Count 6.5 x10^3/uL (4.0-11.0) Red Blood Count 4.03 x10^6/uL (3.50-5.40) Hemoglobin 12.3 g/dL (12.0-15.5) Hematocrit 36.4 % (36.0-47.0) Mean Corpuscular Volume 90 fL (79-100) Mean Corpuscular Hemoglobin 31 pg (25-35) Mean Corpuscular Hemoglobin Concent 34 g/dL (31-37) Red Cell Distribution Width 13.6 % (11.5-14.5) Platelet Count 240 x10^3/uL (140-400) Neutrophils (%) (Auto) 79 % (31-73) Lymphocytes (%) (Auto) 8 % (24-48) Monocytes (%) (Auto) 11 % (0-9) Eosinophils (%) (Auto) 1 % (0-3) Basophils (%) (Auto) 1 % (0-3) Neutrophils # (Auto) 5.1 x10^3/uL (1.8-7.7) Lymphocytes # (Auto) 0.5 x10^3/uL (1.0-4.8) Monocytes # (Auto) 0.7 x10^3/uL (0.0-1.1) Eosinophils # (Auto) 0.1 x10^3/uL (0.0-0.7) Basophils # (Auto) 0.0 x10^3/uL (0.0-0.2) Stool Occult Blood Positive (NEG) Sodium Level 137 mmol/L (136-145) Potassium Level 4.1 mmol/L (3.5-5.1) Chloride Level 101 mmol/L (98-107) Carbon Dioxide Level 31 mmol/L (21-32) Anion Gap 5 (6-14) Blood Urea Nitrogen 15 mg/dL (7-20) Creatinine 0.6 mg/dL (0.6-1.0) Estimated GFR (Cockcroft-Gault) 97.5 BUN/Creatinine Ratio 25 (6-20) Glucose Level 141 mg/dL (70-99) Calcium Level 8.9 mg/dL (8.5-10.1) Magnesium Level 2.0 mg/dL (1.8-2.4) Total Bilirubin 0.8 mg/dL (0.2-1.0) Aspartate Amino Transf (AST/SGOT) 13 U/L (15-37) Alanine Aminotransferase (ALT/SGPT) 32 U/L (14-59) Alkaline Phosphatase 73 U/L (46-116) Total Protein 6.9 g/dL (6.4-8.2) Albumin 2.9 g/dL (3.4-5.0) Albumin/Globulin Ratio 0.7 (1.0-1.7) Urine Collection Type Void Urine Color Evonne Urine Clarity Cloudy Urine pH 6.5 Urine Specific [place] 1.020 Urine Protein Negative mg/dL (NEG-TRACE) Urine Glucose (UA) 100 mg/dL (NEG) Urine Ketones (Stick) Trace mg/dL (NEG) Urine Blood Moderate (NEG) Urine Nitrite Negative (NEG) Urine Bilirubin Small (NEG) Urine Urobilinogen Dipstick 1.0 mg/dL (0.2 mg/dL) Urine Leukocyte Esterase Small (NEG) Urine RBC 3-5 /HPF (0-2) Urine WBC 1-4 /HPF (0-4) Urine Squamous Epithelial Cells Few /LPF Urine Bacteria Few /HPF (0-FEW) Allergies: Coded Allergies: No Known Drug Allergies (Unverified , 03/05/19) Medications: Current Medications Medications (Trade) Dose Ordered Sig/[place] Route PRN Reason Start Time Stop Time Status Last Admin Dose Admin Sodium Chloride 1,000 ml @ 1,000 mls/hr 1X ONCE IV 03/12/19 11:15 03/12/19 12:21 DC 03/12/19 11:58 Imaging: Imaging: CT A/P IMPRESSION: 1. Marked stool content within the rectum with associated inflammatory change, likely from stercoral colitis. Distal anorectal mass is not entirely excluded and can be correlated with physical examination/rectal examination and/or e ndoscopic evaluation. 2. No bowel obstruction. 3. Relative hepatic hypoattenuation may be seen with fatty liver. 4. Mild splenomegaly. 5. Bilateral inguinal and periumbilical fat-containing hernias are seen. The right inguinal hernia also contains a short segment of normal-appearing decompressed small bowel. No associated obstruction. PE: GEN: NAD HEENT: Atraumatic, PERRL LUNGS: CTAB HEART: RRR ABD: NABS, S/ND/NT EXTREMITY: right knee w/ bandage SKIN: No rashes, no jaundice NEURO/PSYCH: A & O 3 A/P: A/P: Constipation/fecal impaction, rectal bleeding Abnormal CT - large amount of stool w/ rectal inflammation (suspect stercoral colitis), right inguinal hernia w/ fat and small bowel Heartburn - new CRC screen - UTD H/o irregular bowel habits - fiber suggested in the past Diverticulosis, hemorrhoids Possible fatty liver - noted on CT Recent knee surgery, NSAID use -- Constipation likely related to taking Percocet after knee replacement. Now stooling after disimpaction, etc. in ER. H/o rectal bleeding - colonoscopy last year as above - last stool reportedly without blood. Normal Hgb and BUN. 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 Has ASA ordered - might avoid this. Try DIXIE robles. ELVIS FOLEY Mar 12, 2019 16:09
[2019-03-12] MEDS: IV NORMAL SALINE 1000ML BAG 1,000 ML IV SCH (18:33)
[2019-03-12 19:00] VITALS: BP 177/77
[2019-03-12] MEDS ORDERED: FAMOTIDINE 20 MG TABLET. PO SCH (21:00)
[2019-03-12] MEDS: FLECAINIDE ACETATE 50 MG TABLET. PO SCH (21:17)
[2019-03-12] MEDS: METOPROLOL TART IMMED RELEASE 25 MG TABLET. PO SCH (21:17)
[2019-03-12 23:00] VITALS: BP 156/70
[2019-03-13 03:00] VITALS: BP 140/67
[2019-03-13 04:17] LABS: BASO % 1 % (0-3); EOS # 0.2 x10^3/uL (0.0-0.7); EOS % 3 % (0-3); HEMOGLOBIN 10.5 g/dL (12.0-15.5); LYMPH # 0.6 x10^3/uL (1.0-4.8); LYMPH % 12 % (24-48); MEAN CORPUSCULAR HEMOGLOBIN 31 pg (25-35); MEAN CORPUSCULAR HGB CONC 34 g/dL (31-37); MEAN CORPUSCULAR VOLUME 91 fL (79-100); MONO # 0.6 x10^3/uL (0.0-1.1); MONO % 12 % (0-9); NEUT # 3.6 x10^3/uL (1.8-7.7); NEUT % 72 % (31-73); PLATELET COUNT 204 x10^3/uL (140-400); RED CELL DISTRIBUTION WIDTH 13.9 % (11.5-14.5)
[2019-03-13 07:00] VITALS: BP 153/70
[2019-03-13] MEDS: METOPROLOL TART IMMED RELEASE 25 MG TABLET. PO SCH (08:18)
[2019-03-13] MEDS: FLECAINIDE ACETATE 50 MG TABLET. PO SCH (08:19)
[2019-03-13] MEDS: IV NORMAL SALINE 1000ML BAG 1,000 ML IV SCH (08:19)
--- NOTE | 2019-03-13 08:23 | PDOC ---
PROGRESS NOTES Chief Complaint Chief Complaint Marked stool content within the rectum with associated inflammatory change, likely from stercoral colitis. Distal anorectal mass is not entirely excluded and can be correlated with physical examination/rectal examination and/or endoscopic evaluation. No bowel obstruction. Relative hepatic hypoattenuation may be seen with fatty liver. Mild splenomegaly. Bilateral inguinal and periumbilical fat-containing hernias FECAL IMPACTION RECTAL BLEEDING, Hemorrhoids Stercoral colitis from impacted stool S/p R TKA on 03/05, recovering well History of Present Illness History of Present Illness Ms Lyn is a 73 y/o female who had right knee replacement on 03/05/19. Took Percocet while in the hospital, continued Celebrex at home. Says she has no knee pain - just soreness. Typically has a loose stool in the morning, then has to go back inside while trying to leave for work and have another, then has to stop at a gas station on the way to work to have another stool. 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 Had not stooled since the day of knee replacement. Significant straining at home w/ minimal amount of rectal bleeding (red blood). Lots of BM 1/7 after digital disimpaction by nursing in ED. Liquid/watery stools today - much less. No bleeding. Tolerating clears, says plans to advance diet. Wants to go home today. Has no pain except knee "soreness." Vomited a little Mag Citrate yesterday - again describes sour stomach, acid reflux. She has been advised to avoid opioids and use miralax daily. Vitals Vitals Vital Signs Date Time Temp Pulse Resp B/P (MAP) Pulse Ox O2 Delivery O2 Flow Rate FiO2 03/13/19 07:00 98.2 73 18 153/70 (97) 97 Room Air 98.2 Physical Exam General: Alert, Oriented X3, Cooperative, No acute distress Lungs: Clear Abdomen: Normal bowel sounds, Soft, No tenderness, No hepatosplenomegaly Extremities: No clubbing, No cyanosis Labs LABS Laboratory Tests Test 03/12/19 10:50 03/12/19 11:05 03/13/19 02:55 White Blood Count 6.5 x10^3/uL (4.0-11.0) 5.0 x10^3/uL (4.0-11.0) Red Blood Count 4.03 x10^6/uL (3.50-5.40) 3.40 x10^6/uL (3.50-5.40) Hemoglobin 12.3 g/dL (12.0-15.5) 10.5 g/dL (12.0-15.5) Hematocrit 36.4 % (36.0-47.0) 31.0 % (36.0-47.0) Mean Corpuscular Volume 90 fL (79-100) 91 fL (79-100) Mean Corpuscular Hemoglobin 31 pg (25-35) 31 pg (25-35) Mean Corpuscular Hemoglobin Concent 34 g/dL (31-37) 34 g/dL (31-37) Red Cell Distribution Width 13.6 % (11.5-14.5) 13.9 % (11.5-14.5) Platelet Count 240 x10^3/uL (140-400) 204 x10^3/uL (140-400) Neutrophils (%) (Auto) 79 % (31-73) 72 % (31-73) Lymphocytes (%) (Auto) 8 % (24-48) 12 % (24-48) Monocytes (%) (Auto) 11 % (0-9) 12 % (0-9) Eosinophils (%) (Auto) 1 % (0-3) 3 % (0-3) Basophils (%) (Auto) 1 % (0-3) 1 % (0-3) Neutrophils # (Auto) 5.1 x10^3/uL (1.8-7.7) 3.6 x10^3/uL (1.8-7.7) Lymphocytes # (Auto) 0.5 x10^3/uL (1.0-4.8) 0.6 x10^3/uL (1.0-4.8) Monocytes # (Auto) 0.7 x10^3/uL (0.0-1.1) 0.6 x10^3/uL (0.0-1.1) Eosinophils # (Auto) 0.1 x10^3/uL (0.0-0.7) 0.2 x10^3/uL (0.0-0.7) Basophils # (Auto) 0.0 x10^3/uL (0.0-0.2) 0.0 x10^3/uL (0.0-0.2) Stool Occult Blood Positive (NEG) Sodium Level 137 mmol/L (136-145) Potassium Level 4.1 mmol/L (3.5-5.1) Chloride Level 101 mmol/L (98-107) Carbon Dioxide Level 31 mmol/L (21-32) Anion Gap 5 (6-14) Blood Urea Nitrogen 15 mg/dL (7-20) Creatinine 0.6 mg/dL (0.6-1.0) Estimated GFR (Cockcroft-Gault) 97.5 BUN/Creatinine Ratio 25 (6-20) Glucose Level 141 mg/dL (70-99) Calcium Level 8.9 mg/dL (8.5-10.1) Magnesium Level 2.0 mg/dL (1.8-2.4) Total Bilirubin 0.8 mg/dL (0.2-1.0) Aspartate Amino Transf (AST/SGOT) 13 U/L (15-37) Alanine Aminotransferase (ALT/SGPT) 32 U/L (14-59) Alkaline Phosphatase 73 U/L (46-116) Total Protein 6.9 g/dL (6.4-8.2) Albumin 2.9 g/dL (3.4-5.0) Albumin/Globulin Ratio 0.7 (1.0-1.7) Urine Collection Type Void Urine Color Evonne Urine Clarity Cloudy Urine pH 6.5 Urine Specific [place] 1.020 Urine Protein Negative mg/dL (NEG-TRACE) Urine Glucose (UA) 100 mg/dL (NEG) Urine Ketones (Stick) Trace mg/dL (NEG) Urine Blood Moderate (NEG) Urine Nitrite Negative (NEG) Urine Bilirubin Small (NEG) Urine Urobilinogen Dipstick 1.0 mg/dL (0.2 mg/dL) Urine Leukocyte Esterase Small (NEG) Urine RBC 3-5 /HPF (0-2) Urine WBC 1-4 /HPF (0-4) Urine Squamous Epithelial Cells Few /LPF Urine Bacteria Few /HPF (0-FEW) Assessment and Plan Assessmemt and Plan Problems Medical Problems: (1) Bloody stool Status: Acute (2) Constipation Status: Acute Comment Review of Relevant I have reviewed the following items nanda (where applicable) has been applied. Labs Laboratory Tests Test 03/12/19 10:50 03/12/19 11:05 03/13/19 02:55 White Blood Count 6.5 x10^3/uL (4.0-11.0) 5.0 x10^3/uL (4.0-11.0) Red Blood Count 4.03 x10^6/uL (3.50-5.40) 3.40 x10^6/uL (3.50-5.40) Hemoglobin 12.3 g/dL (12.0-15.5) 10.5 g/dL (12.0-15.5) Hematocrit 36.4 % (36.0-47.0) 31.0 % (36.0-47.0) Mean Corpuscular Volume 90 fL (79-100) 91 fL (79-100) Mean Corpuscular Hemoglobin 31 pg (25-35) 31 pg (25-35) Mean Corpuscular Hemoglobin Concent 34 g/dL (31-37) 34 g/dL (31-37) Red Cell Distribution Width 13.6 % (11.5-14.5) 13.9 % (11.5-14.5) Platelet Count 240 x10^3/uL (140-400) 204 x10^3/uL (140-400) Neutrophils (%) (Auto) 79 % (31-73) 72 % (31-73) Lymphocytes (%) (Auto) 8 % (24-48) 12 % (24-48) Monocytes (%) (Auto) 11 % (0-9) 12 % (0-9) Eosinophils (%) (Auto) 1 % (0-3) 3 % (0-3) Basophils (%) (Auto) 1 % (0-3) 1 % (0-3) Neutrophils # (Auto) 5.1 x10^3/uL (1.8-7.7) 3.6 x10^3/uL (1.8-7.7) Lymphocytes # (Auto) 0.5 x10^3/uL (1.0-4.8) 0.6 x10^3/uL (1.0-4.8) Monocytes # (Auto) 0.7 x10^3/uL (0.0-1.1) 0.6 x10^3/uL (0.0-1.1) Eosinophils # (Auto) 0.1 x10^3/uL (0.0-0.7) 0.2 x10^3/uL (0.0-0.7) Basophils # (Auto) 0.0 x10^3/uL (0.0-0.2) 0.0 x10^3/uL (0.0-0.2) Stool Occult Blood Positive (NEG) Sodium Level 137 mmol/L (136-145) Potassium Level 4.1 mmol/L (3.5-5.1) Chloride Level 101 mmol/L (98-107) Carbon Dioxide Level 31 mmol/L (21-32) Anion Gap 5 (6-14) Blood Urea Nitrogen 15 mg/dL (7-20) Creatinine 0.6 mg/dL (0.6-1.0) Estimated GFR (Cockcroft-Gault) 97.5 BUN/Creatinine Ratio 25 (6-20) Glucose Level 141 mg/dL (70-99) Calcium Level 8.9 mg/dL (8.5-10.1) Magnesium Level 2.0 mg/dL (1.8-2.4) Total Bilirubin 0.8 mg/dL (0.2-1.0) Aspartate Amino Transf (AST/SGOT) 13 U/L (15-37) Alanine Aminotransferase (ALT/SGPT) 32 U/L (14-59) Alkaline Phosphatase 73 U/L (46-116) Total Protein 6.9 g/dL (6.4-8.2) Albumin 2.9 g/dL (3.4-5.0) Albumin/Globulin Ratio 0.7 (1.0-1.7) Urine Collection Type Void Urine Color Evonne Urine Clarity Cloudy Urine pH 6.5 Urine Specific [place] 1.020 Urine Protein Negative mg/dL (NEG-TRACE) Urine Glucose (UA) 100 mg/dL (NEG) Urine Ketones (Stick) Trace mg/dL (NEG) Urine Blood Moderate (NEG) Urine Nitrite Negative (NEG) Urine Bilirubin Small (NEG) Urine Urobilinogen Dipstick 1.0 mg/dL (0.2 mg/dL) Urine Leukocyte Esterase Small (NEG) Urine RBC 3-5 /HPF (0-2) Urine WBC 1-4 /HPF (0-4) Urine Squamous Epithelial Cells Few /LPF Urine Bacteria Few /HPF (0-FEW) Laboratory Tests Test 03/12/19 10:50 03/12/19 11:05 03/13/19 02:55 White Blood Count 6.5 x10^3/uL (4.0-11.0) 5.0 x10^3/uL (4.0-11.0) Red Blood Count 4.03 x10^6/uL (3.50-5.40) 3.40 x10^6/uL (3.50-5.40) Hemoglobin 12.3 g/dL (12.0-15.5) 10.5 g/dL (12.0-15.5) Hematocrit 36.4 % (36.0-47.0) 31.0 % (36.0-47.0) Mean Corpuscular Volume 90 fL (79-100) 91 fL (79-100) Mean Corpuscular Hemoglobin 31 pg (25-35) 31 pg (25-35) Mean Corpuscular Hemoglobin Concent 34 g/dL (31-37) 34 g/dL (31-37) Red Cell Distribution Width 13.6 % (11.5-14.5) 13.9 % (11.5-14.5) Platelet Count 240 x10^3/uL (140-400) 204 x10^3/uL (140-400) Neutrophils (%) (Auto) 79 % (31-73) 72 % (31-73) Lymphocytes (%) (Auto) 8 % (24-48) 12 % (24-48) Monocytes (%) (Auto) 11 % (0-9) 12 % (0-9) Eosinophils (%) (Auto) 1 % (0-3) 3 % (0-3) Basophils (%) (Auto) 1 % (0-3) 1 % (0-3) Neutrophils # (Auto) 5.1 x10^3/uL (1.8-7.7) 3.6 x10^3/uL (1.8-7.7) Lymphocytes # (Auto) 0.5 x10^3/uL (1.0-4.8) 0.6 x10^3/uL (1.0-4.8) Monocytes # (Auto) 0.7 x10^3/uL (0.0-1.1) 0.6 x10^3/uL (0.0-1.1) Eosinophils # (Auto) 0.1 x10^3/uL (0.0-0.7) 0.2 x10^3/uL (0.0-0.7) Basophils # (Auto) 0.0 x10^3/uL (0.0-0.2) 0.0 x10^3/uL (0.0-0.2) Stool Occult Blood Positive (NEG) Sodium Level 137 mmol/L (136-145) Potassium Level 4.1 mmol/L (3.5-5.1) Chloride Level 101 mmol/L (98-107) Carbon Dioxide Level 31 mmol/L (21-32) Anion Gap 5 (6-14) Blood Urea Nitrogen 15 mg/dL (7-20) Creatinine 0.6 mg/dL (0.6-1.0) Estimated GFR (Cockcroft-Gault) 97.5 BUN/Creatinine Ratio 25 (6-20) Glucose Level 141 mg/dL (70-99) Calcium Level 8.9 mg/dL (8.5-10.1) Magnesium Level 2.0 mg/dL (1.8-2.4) Total Bilirubin 0.8 mg/dL (0.2-1.0) Aspartate Amino Transf (AST/SGOT) 13 U/L (15-37) Alanine Aminotransferase (ALT/SGPT) 32 U/L (14-59) Alkaline Phosphatase 73 U/L (46-116) Total Protein 6.9 g/dL (6.4-8.2) Albumin 2.9 g/dL (3.4-5.0) Albumin/Globulin Ratio 0.7 (1.0-1.7) Urine Collection Type Void Urine Color Evonne Urine Clarity Cloudy Urine pH 6.5 Urine Specific [place] 1.020 Urine Protein Negative mg/dL (NEG-TRACE) Urine Glucose (UA) 100 mg/dL (NEG) Urine Ketones (Stick) Trace mg/dL (NEG) Urine Blood Moderate (NEG) Urine Nitrite Negative (NEG) Urine Bilirubin Small (NEG) Urine Urobilinogen Dipstick 1.0 mg/dL (0.2 mg/dL) Urine Leukocyte Esterase Small (NEG) Urine RBC 3-5 /HPF (0-2) Urine WBC 1-4 /HPF (0-4) Urine Squamous Epithelial Cells Few /LPF Urine Bacteria Few /HPF (0-FEW) Medications Current Medications Sodium Chloride 1,000 ml @ 1,000 mls/hr 1X ONCE IV Last administered on 03/12/19at 11:58; Start 03/12/19 at 11:15; Stop 03/12/19 at 12:21; Status DC Iohexol (Omnipaque 300 Mg/ml) 75 ml 1X ONCE IV ; Start 03/12/19 at 11:45; Stop 03/12/19 at 11:46; Status DC Magnesium Citrate (Citroma) 296 ml 1X ONCE PO ; Start 03/12/19 at 13:00; Stop 03/12/19 at 13:01; Status DC Magnesium Citrate (Citroma) 296 ml STK-MED ONCE .ROUTE ; Start 03/12/19 at 12:57; Stop 03/12/19 at 12:58; Status DC Ondansetron HCl (Zofran) 4 mg PRN Q8HRS PRN IV NAUSEA/VOMITING; Start 03/12/19 at 13:15; Stop 03/13/19 at 13:14 Fentanyl Citrate (Fentanyl 2ml Vial) 50 mcg PRN Q1HR PRN IV PAIN; Start 03/12/19 at 13:15; Stop 03/13/19 at 13:14 Acetaminophen (Tylenol) 650 mg PRN Q4HRS PRN PO FEVER; Start 03/12/19 at 13:15; Stop 03/13/19 at 13:14 Aspirin (Children'S Aspirin) 81 mg DAILY PO ; Start 03/13/19 at 09:00 Flecainide Acetate (Tambocor) 100 mg Q12HR PO Last administered on 03/12/19at 21:17; Start 03/12/19 at 21:00 Furosemide (Lasix) 20 mg DAILY PO ; Start 03/13/19 at 09:00 Metoprolol Tartrate (Lopressor) 25 mg BID PO Last administered on 03/12/19at 21:17; Start 03/12/19 at 21:00 Potassium Chloride (Klor-Con) 20 meq DAILY PO ; Start 03/13/19 at 09:00 Vitamin D (Vitamin D3) 5,000 unit DAILY PO ; Start 03/13/19 at 09:00 Sodium Chloride (Normal Saline Flush) 3 ml QSHIFT PRN IV AFTER MEDS AND BLOOD DRAWS; Start 03/12/19 at 15:45 Sodium Chloride 1,000 ml @ 55 mls/hr [id number] IV Last administered on 03/12/19at 18:33; Start 03/12/19 at 15:44 Ondansetron HCl (Zofran) 4 mg PRN Q4HRS PRN IV NAUSEA/VOMITING; Start 03/12/19 at 15:45 Acetaminophen (Tylenol) 650 mg PRN Q4HRS PRN PO TEMP OVER 100.4F OR MILD PAIN; Start 03/12/19 at 15:45 Al Hydroxide/Mg Hydroxide (Mylanta Plus Xs) 30 ml PRN DAILY PRN PO HEARTBURN / GAS; Start 03/12/19 at 15:45 Sodium Monofluorophosphate (Fleet Adult) 133 ml PRN DAILY PRN NC CONSTIPATION; Start 03/12/19 at 15:45 Docusate Sodium (Colace) 100 mg PRN BID PRN PO CONSTIPATION; Start 03/12/19 at 15:45 Albuterol Sulfate (Ventolin Neb Soln) 2.5 mg PRN Q4HRS PRN NEB SHORTNESS OF BREATH; Start 03/12/19 at 15:45 Guaifenesin (Robitussin) 200 mg PRN Q4HRS PRN PO COUGH; Start 03/12/19 at 15:45 Lorazepam (Ativan) 0.5 mg PRN Q4HRS PRN PO ANXIETY / AGITATION; Start 03/12/19 at 15:45 Famotidine (Pepcid) 20 mg QHS PO Last administered on 03/12/19at 21:17; Start 03/12/19 at 21:00 Active Scripts Active Celebrex (Celecoxib) 100 Mg Capsule 200 Mg PO DAILY 30 Days Take Celebrex 200 mg daily by mouth for 30 days. Percocet 5-325 Mg Tablet (Oxycodone/Acetaminophen) 1 Each Tablet 1-2 Tab PO PRN Q4HRS PRN 14 Days Take 1-2 tablets by mouth every 4 hours as needed for pain. Aspirin 81 Mg Tab.chew 81 Mg PO DAILY 30 Days Take 81 mg (low-dose) aspirin by mouth twice a day for 30 days, then resume your normal 81 mg aspirin daily. Metoprolol Tartrate 25 Mg Tablet 25 Mg PO BID 60 Days Flecainide Acetate 50 Mg Tablet 100 Mg PO Q12HR 60 Days Reported Celebrex (Celecoxib) 200 Mg Capsule 1 Cap PO ONCE Vitamin D3 (Cholecalciferol (Vitamin D3)) 10,000 Unit Capsule 5,000 Unit PO DAILY Klor-Con M20 (Potassium Chloride) 20 Meq Tab.er.prt 20 Meq PO DAILY Furosemide 20 Mg Tablet 1 Tab PO DAILY Vitals/I & O Vital Sign - Last 24 Hours 03/12/19 03/12/19 03/12/19 03/12/19 10:27 10:30 11:41 14:03 Temp 97.8 97.8 Pulse 76 77 73 76 Resp 18 B/P (MAP) 141/72 (95) 141/72 (95) 164/78 (106) 185/90 (121) Pulse Ox 98 98 98 94 O2 Delivery Room Air Room Air Room Air Room Air 03/12/19 03/12/19 03/12/19 03/12/19 14:30 19:00 20:00 21:17 Temp 98.3 98.3 Pulse 85 85 Resp 18 B/P (MAP) 177/77 (110) 177/77 Pulse Ox 96 O2 Delivery Room Air Room Air Room Air 03/12/19 03/12/19 03/13/19 03/13/19 21:17 23:00 03:00 07:00 Temp 98.3 98.3 98.2 98.3 98.3 98.2 Pulse 85 77 69 73 Resp 18 18 18 B/P (MAP) 177/77 156/70 (98) 140/67 (91) 153/70 (97) Pulse Ox 97 67 97 O2 Delivery Room Air Room Air Room Air Intake and Output 03/12/19 03/12/19 03/13/19 14:59 22:59 06:59 Intake Total 1000 ml 0 ml Output Total 2 ml Balance 1000 ml -2 ml TESSIE YANG MD Mar 13, 2019 08:23
[2019-03-13] MEDS ORDERED: DOCUSATE SODIUM 283 MG/5 ML ENEMA. PR PRN (08:30)
[2019-03-13] MEDS ORDERED: ASPIRIN CHEWABLE 81 MG TABLET. PO SCH (09:00)
[2019-03-13] MEDS ORDERED: FUROSEMIDE 20 MG TABLET PO SCH (09:00)
[2019-03-13] MEDS ORDERED: POTASSIUM CHLORIDE 20 MEQ TABLET.ER. PO SCH (09:00)
[2019-03-13] MEDS ORDERED: CHOLECALCIFEROL (VITAMIN D3) 5,000 UNIT CAPSULE PO SCH (09:00)
[2019-03-13 11:00] VITALS: BP 143/59
--- NOTE | 2019-03-13 12:49 | SNU/HH DC ---
DISCHARGE WITH HOME HEALTH DISCHARGE INFORMATION: Discharge Date: Mar 13, 2019 Final Diagnosis: Problems Medical Problems: (1) Bloody stool Status: Acute (2) Constipation Status: Acute Condition on Discharge: Stable CODE STATUS: Code Status: Full HOME HEALTH: Face to Face: I certify this patient is under my care and that I, or a nurse practitioner or physician's permit review assistant working with me, had a face to face encounter that meets the physician face to face encounter requirements with this patient on 03/13/2019. Medical Complications: HTN RN For Eval/Treatment: Yes Physical Therapy For: Evalulation/Treatment Pt Meets Homebound Status: Extreme weakness w/ amb. POST DISCHARGE ORDERS: Activity Instructions for Disc: Walk in house Weight Bearing Status after Di: No restrictions, Full weight bearing, As tolerated Bathing Instructions: Shower-keep dressing dry, No Tub Bath until see DIET AFTER DISCHARGE: Regular Wound/Incision Care: Ice to area for comfort, Keep wound/cast CDI, May get incision wet CHECKS AFTER DISCHARGE: Checks after discharge: Check blood press - daily TREATMENT/EQUIPMENT ORDERS: Adaptive Equipment Issued: None CERTIFICATION STATEMENT: Certification Statement: Certification Statement: Based on the above finding, I certify that this patient is confined to the home and needs intermittent retirement care, physical therapy and/or speech therapy, or continues to need occupational therapy.~ This patient is under my care, and I have initiated the establishment of the plan of care.~ This patient will be followed by myself or a community physician who will periodically review the plan of care. Home Meds Active Scripts Celecoxib (CELEBREX) 100 Mg Capsule, 200 MG PO DAILY for control pain and swelling for 30 Days, #60 CAP Take Celebrex 200 mg daily by mouth for 30 days. Prov:AKIN PAK MD 03/08/19 Oxycodone/Apap 5-325 (PERCOCET 5-325 MG TABLET ) 1 Each Tablet, 1-2 TAB PO PRN Q4HRS PRN for PAIN for 14 Days, #60 TAB Take 1-2 tablets by mouth every 4 hours as needed for pain. Prov:AKIN PAK MD 03/08/19 Aspirin (ASPIRIN) 81 Mg Tab.chew, 81 MG PO DAILY for BLOOD THINNER for 30 Days, #30 TAB.CHEW Take 81 mg (low-dose) aspirin by mouth twice a day for 30 days, then resume your normal 81 mg aspirin daily. Prov:AKIN PAK MD 03/08/19 Metoprolol Tartrate (METOPROLOL TARTRATE) 25 Mg Tablet, 25 MG PO BID for 60 Days, #120 TAB Prov:XI MCKAY MD 07/06/17 Flecainide Acetate (FLECAINIDE ACETATE) 50 Mg Tablet, 100 MG PO Q12HR for 60 Days, #240 TAB Prov:XI MCKAY MD 07/06/17 Reported Medications Celecoxib (CELEBREX) 200 Mg Capsule, 1 CAP PO ONCE for pre op, #30 CAP 2 Refills 03/05/19 Cholecalciferol (Vitamin D3) (VITAMIN D3) 10,000 Unit Capsule, 5000 UNIT PO DAILY for SUPPLEMENT, CAP 02/12/19 Potassium Chloride (KLOR-CON M20) 20 Meq Tab.er.prt, 20 MEQ PO DAILY for SUPPLEMENT, TAB.SR 10/04/17 Furosemide (FUROSEMIDE) 20 Mg Tablet, 1 TAB PO DAILY for water pill, #90 TAB 1 Refill 07/06/17 Discontinued Reported Medications Ferrous Sulfate (IRON) 325 Mg Tablet, 1 TAB PO BID for pre op knee for 30 Days, #60 TAB 0 Refills 03/05/19 Ibuprofen (IBUPROFEN) 400 Mg Tablet, 200 MG PO PRN Q6HRS PRN for INFLAMMATION, TAB 02/12/19 TESSIE YANG MD Mar 13, 2019 12:48
--- NOTE | 2019-03-13 13:06 | PDOC ---
Subjective: Subjective: Lots of stooling yesterday. Liquid/watery stools today - much less. No bleeding. Tolerating clears, says plans to advance diet. Wants to go home today. Has no pain except knee "soreness." Vomited a little Mag Citrate yesterday - again describes sour stomach, acid reflux. Objective: Vital Signs: Vital Signs Date Time Temp Pulse Resp B/P (MAP) Pulse Ox O2 Delivery O2 Flow Rate FiO2 03/13/19 11:00 98.4 60 18 143/59 (87) 98 Room Air 98.4 Labs: Laboratory Tests Test 03/13/19 02:55 White Blood Count 5.0 x10^3/uL Red Blood Count 3.40 x10^6/uL Hemoglobin 10.5 g/dL Hematocrit 31.0 % Mean Corpuscular Volume 91 fL Mean Corpuscular Hemoglobin 31 pg Mean Corpuscular Hemoglobin Concent 34 g/dL Red Cell Distribution Width 13.9 % Platelet Count 204 x10^3/uL Neutrophils (%) (Auto) 72 % Lymphocytes (%) (Auto) 12 % Monocytes (%) (Auto) 12 % Eosinophils (%) (Auto) 3 % Basophils (%) (Auto) 1 % Neutrophils # (Auto) 3.6 x10^3/uL Lymphocytes # (Auto) 0.6 x10^3/uL Monocytes # (Auto) 0.6 x10^3/uL Eosinophils # (Auto) 0.2 x10^3/uL Basophils # (Auto) 0.0 x10^3/uL PE: GEN: NAD LUNGS: CTAB HEART: RRR ABD: NABS, S/ND/NT NEURO/PSYCH: A & O 3 A/P: Constipation/fecal impaction, rectal bleeding - resolved Dyspepsia, NSAID use -- DC per primary. Okay for regular diet. She has questions about need to continue Celebrex and need to wear compression stocking - both recommended after knee surgery. If to continue NSAID, encouraged short-term use of H2 arleth or PPI, particularly w/ "sour stomach." No longer taking narcotics but Miralax a good option as outpt if needed for constipation. Can monitor Hgb as outpt w/ PCP. ELVIS FOLEY Mar 13, 2019 13:06
--- NOTE | 2019-03-13 14:29 | NUR ---
SW following. Discussed with RN, pt is current with [facility]. Willie Ramos RN sending clinicals and discharge paperwork. Pt discharging home today.
--- NOTE | 2019-03-13 15:31 | NUR ---
Discharge Note: PT DISCHARGED HOME WITH [facility]. PT LEFT FACILITY VIA PRIVATE VEHICLE WITH GRAND-DAUGHTER AT 1500. PT STABLE AND ALERT UPON DISCHARGE. PT PIV REMOVED FROM L AC WITHOUT COMPLICATIONS, BANDAGE APPLIED. PT EDUCATED ABOUT DISCHARGE INSTRUCTIONS, DISCHARGE MEDICATIONS, AND FOLLOW-UP CARE. PT VOICED NO CONCERNS AT THIS TIME. PT LEFT WITH ALL PERSONAL BELONGINGS. NELI ROD Discharge instructions and discharge home medications reviewed with Patient and a copy given. All questions have been answered and understanding verbalized.
--- NOTE | 2019-03-13 15:50 | PDOC3 ---
Discharge Summary Visit Information Date of Admission: Mar 12, 2019 Date of Discharge: Mar 13, 2019 Admitting Diagnosis: Bright red blood per rectum Final Diagnosis Problems Medical Problems: (1) Bloody stool Status: Acute (2) Constipation Status: Acute Brief Hospital Course Allergies Allergies Coded Allergies Type Severity Reaction Last Updated Verified No Known Drug Allergies 03/05/19 No Vital Signs Vital Signs Date Time Temp Pulse Resp B/P (MAP) Pulse Ox O2 Delivery O2 Flow Rate FiO2 03/13/19 11:00 98.4 60 18 143/59 (87) 98 Room Air 98.4 Lab Results Laboratory Tests Test 03/12/19 10:50 03/12/19 11:05 03/13/19 02:55 White Blood Count 6.5 x10^3/uL (4.0-11.0) 5.0 x10^3/uL (4.0-11.0) Red Blood Count 4.03 x10^6/uL (3.50-5.40) 3.40 x10^6/uL (3.50-5.40) Hemoglobin 12.3 g/dL (12.0-15.5) 10.5 g/dL (12.0-15.5) Hematocrit 36.4 % (36.0-47.0) 31.0 % (36.0-47.0) Mean Corpuscular Volume 90 fL (79-100) 91 fL (79-100) Mean Corpuscular Hemoglobin 31 pg (25-35) 31 pg (25-35) Mean Corpuscular Hemoglobin Concent 34 g/dL (31-37) 34 g/dL (31-37) Red Cell Distribution Width 13.6 % (11.5-14.5) 13.9 % (11.5-14.5) Platelet Count 240 x10^3/uL (140-400) 204 x10^3/uL (140-400) Neutrophils (%) (Auto) 79 % (31-73) 72 % (31-73) Lymphocytes (%) (Auto) 8 % (24-48) 12 % (24-48) Monocytes (%) (Auto) 11 % (0-9) 12 % (0-9) Eosinophils (%) (Auto) 1 % (0-3) 3 % (0-3) Basophils (%) (Auto) 1 % (0-3) 1 % (0-3) Neutrophils # (Auto) 5.1 x10^3/uL (1.8-7.7) 3.6 x10^3/uL (1.8-7.7) Lymphocytes # (Auto) 0.5 x10^3/uL (1.0-4.8) 0.6 x10^3/uL (1.0-4.8) Monocytes # (Auto) 0.7 x10^3/uL (0.0-1.1) 0.6 x10^3/uL (0.0-1.1) Eosinophils # (Auto) 0.1 x10^3/uL (0.0-0.7) 0.2 x10^3/uL (0.0-0.7) Basophils # (Auto) 0.0 x10^3/uL (0.0-0.2) 0.0 x10^3/uL (0.0-0.2) Stool Occult Blood Positive (NEG) Sodium Level 137 mmol/L (136-145) Potassium Level 4.1 mmol/L (3.5-5.1) Chloride Level 101 mmol/L (98-107) Carbon Dioxide Level 31 mmol/L (21-32) Anion Gap 5 (6-14) Blood Urea Nitrogen 15 mg/dL (7-20) Creatinine 0.6 mg/dL (0.6-1.0) Estimated GFR (Cockcroft-Gault) 97.5 BUN/Creatinine Ratio 25 (6-20) Glucose Level 141 mg/dL (70-99) Calcium Level 8.9 mg/dL (8.5-10.1) Magnesium Level 2.0 mg/dL (1.8-2.4) Total Bilirubin 0.8 mg/dL (0.2-1.0) Aspartate Amino Transf (AST/SGOT) 13 U/L (15-37) Alanine Aminotransferase (ALT/SGPT) 32 U/L (14-59) Alkaline Phosphatase 73 U/L (46-116) Total Protein 6.9 g/dL (6.4-8.2) Albumin 2.9 g/dL (3.4-5.0) Albumin/Globulin Ratio 0.7 (1.0-1.7) Urine Collection Type Void Urine Color Evonne Urine Clarity Cloudy Urine pH 6.5 Urine Specific [place] 1.020 Urine Protein Negative mg/dL (NEG-TRACE) Urine Glucose (UA) 100 mg/dL (NEG) Urine Ketones (Stick) Trace mg/dL (NEG) Urine Blood Moderate (NEG) Urine Nitrite Negative (NEG) Urine Bilirubin Small (NEG) Urine Urobilinogen Dipstick 1.0 mg/dL (0.2 mg/dL) Urine Leukocyte Esterase Small (NEG) Urine RBC 3-5 /HPF (0-2) Urine WBC 1-4 /HPF (0-4) Urine Squamous Epithelial Cells Few /LPF Urine Bacteria Few /HPF (0-FEW) Laboratory Tests Test 03/13/19 02:55 White Blood Count 5.0 x10^3/uL (4.0-11.0) Red Blood Count 3.40 x10^6/uL (3.50-5.40) Hemoglobin 10.5 g/dL (12.0-15.5) Hematocrit 31.0 % (36.0-47.0) Mean Corpuscular Volume 91 fL (79-100) Mean Corpuscular Hemoglobin 31 pg (25-35) Mean Corpuscular Hemoglobin Concent 34 g/dL (31-37) Red Cell Distribution Width 13.9 % (11.5-14.5) Platelet Count 204 x10^3/uL (140-400) Neutrophils (%) (Auto) 72 % (31-73) Lymphocytes (%) (Auto) 12 % (24-48) Monocytes (%) (Auto) 12 % (0-9) Eosinophils (%) (Auto) 3 % (0-3) Basophils (%) (Auto) 1 % (0-3) Neutrophils # (Auto) 3.6 x10^3/uL (1.8-7.7) Lymphocytes # (Auto) 0.6 x10^3/uL (1.0-4.8) Monocytes # (Auto) 0.6 x10^3/uL (0.0-1.1) Eosinophils # (Auto) 0.2 x10^3/uL (0.0-0.7) Basophils # (Auto) 0.0 x10^3/uL (0.0-0.2) Brief Hospital Course Ms Lyn is a 73 y/o female who had right knee replacement on 03/05/19. Took Percocet while in the hospital, continued Celebrex at home. Says she has no knee pain - just soreness. Typically has a loose stool in the morning, then has to go back inside while trying to leave for work and have another, then has to stop at a gas station on the way to work to have another stool. 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 Had not stooled since the day of knee replacement. Significant straining at home w/ minimal amount of rectal bleeding (red blood). Lots of BM 03/12 after digital disimpaction by nursing in ED. Liquid/watery stools today - much less. No bleeding. Tolerating clears, says plans to advance diet. Wants to go home today. Has no pain except knee "soreness." Vomited a little Mag Citrate yesterday - again describes sour stomach, acid reflux. She has been advised to avoid opioids and use miralax daily. Seen by GI in consultation Problem list: Marked stool content within the rectum with associated inflammatory change, likely from stercoral colitis. Distal anorectal mass is not entirely excluded and can be correlated with physical examination/rectal examination and/or endoscopic evaluation. No bowel obstruction. Relative hepatic hypoattenuation may be seen with fatty liver. Mild splenomegaly. Bilateral inguinal and periumbilical fat-containing hernias FECAL IMPACTION RECTAL BLEEDING, Hemorrhoids Stercoral colitis from impacted stool S/p R TKA on 03/05, recovering well Greater than 30 minutes spent on d/c Discharge Information Condition at Discharge: Improved Follow Up: Weeks (1) Disposition/Orders: D/C to Home w/ HH Scheduled Aspirin (Aspirin) 81 Mg Tab.chew, 81 MG PO DAILY for BLOOD THINNER for 30 Days, #30 Take 81 mg (low-dose) aspirin by mouth twice a day for 30 days, then resume your normal 81 mg aspirin daily. Prescribed by: AKIN PAK MD on 03/08/19 6213 Last Action: Continued on 03/12/19 1166 by NUNO DELACRUZ MD Celecoxib (Celebrex) 200 Mg Capsule, 1 CAP PO ONCE for pre op, #30 Ref 2 (Reported) Entered as Reported by: Irma Graves on 03/05/19 0853 Last Action: HELD on 03/12/191543 by NUNO DELACRUZ MD Celecoxib (Celebrex) 100 Mg Capsule, 200 MG PO DAILY for control pain and swelling for 30 Days, #60 Take Celebrex 200 mg daily by mouth for 30 days. Prescribed by: AKIN PAK MD on 03/08/19 113 Last Action: HELD on 03/12/191543 by NUNO DELACRUZ MD Cholecalciferol (Vitamin D3) (Vitamin D3) 10,000 Unit Capsule, 5,000 UNIT PO DAILY for SUPPLEMENT, (Reported) Entered as Reported by: RODRIGO BURKS on 02/12/19 1223 Last Action: Converted on 03/12/191543 by NUNO DELACRUZ MD Flecainide Acetate (Flecainide Acetate) 50 Mg Tablet, 100 MG PO Q12HR for 60 Days, #240 Prescribed by: XI MCKAY on 07/06/17 1158 Last Action: Continued on 03/12/191543 by NUNO DELACRUZ MD Furosemide (Furosemide) 20 Mg Tablet, 1 TAB PO DAILY for water pill, #90 Ref 1 (Reported) Entered as Reported by: EDOUARD ENGLISH on 07/06/17 1323 Last Action: Continued on 03/12/191543 by NUNO DELACRUZ MD Metoprolol Tartrate (Metoprolol Tartrate) 25 Mg Tablet, 25 MG PO BID for 60 Days, #120 Prescribed by: XI MCKAY on 07/06/17 1158 Last Action: Continued on 03/12/191543 by NUNO DELACRUZ MD Potassium Chloride (Klor-Con M20) 20 Meq Tab.er.prt, 20 MEQ PO DAILY for SUPPLEMENT, (Reported) Entered as Reported by: ADRIANA PEÑA on 10/04/17 1344 Last Action: Continued on 03/12/191543 by NUNO DELACRUZ MD Scheduled PRN Oxycodone/Apap 5-325 (Percocet 5-325 Mg Tablet ) 1 Each Tablet, 1-2 TAB PO PRN Q4HRS PRN for PAIN for 14 Days, #60 Take 1-2 tablets by mouth every 4 hours as needed for pain. Prescribed by: AKIN PAK MD on 1/3/20 1137 Last Action: HELD on 03/12/19 1544 by NUNO DELACRUZ MD Discontinued Medications Ferrous Sulfate (Iron) 325 Mg Tablet, 1 TAB PO BID for pre op knee for 30 Days, #60 Ref 0 (Reported) Entered as Reported by: Irma Graves on 03/05/19 0854 Ibuprofen (Ibuprofen) 400 Mg Tablet, 200 MG PO PRN Q6HRS PRN for INFLAMMATION, (Reported) Entered as Reported by: RODRIGO BURKS on 02/12/19 1223 TESSIE YANG MD Mar 13, 2019 15:50
== END 2019-03-13 15:00 | disposition home health service (06) | DRG 378 ==
LOC: ER 09:07 → ED HOLD 13:00 → 5 SOUTH 14:39
PROVIDERS: ADMIT Family Medicine; ATTEND Family Medicine
DX: K62.5 Hemorrhage of anus and rectum (principal); E44.0 Moderate protein-calorie malnutrition; I48.91 Unspecified atrial fibrillation; K56.41 Fecal impaction; Z68.28 Body mass index [BMI] 28.0-28.9, adult; I50.9 Heart failure, unspecified; K21.9 Gastro-esophageal reflux disease without esophagitis; K40.90 Unilateral inguinal hernia, without obstruction or gangrene, not specified as recurrent; K52.89 Other specified noninfective gastroenteritis and colitis; K64.9 Unspecified hemorrhoids; N28.1 Cyst of kidney, acquired; T40.2X5A Adverse effect of other opioids, initial encounter; Z79.82 Long term (current) use of aspirin; Z82.49 Family history of ischemic heart disease and other diseases of the circulatory system; Z90.710 Acquired absence of both cervix and uterus; Z96.651 Presence of right artificial knee joint; Y92.89 Other specified places as the place of occurrence of the external cause
CPT/HCPCS: 36415; 74177; 80053; 81001; 82274; 83735; 85025; 87045; 87086; J7030; G0378

== ENCOUNTER → 2019-08-22 | Outpatient (CLI) | payer OTHER ==
[~2019-08-22] MED LIST changes: -DICL100G18 TP; +DICL100G54 TP; +METO-239 PO; +POTA10TA6 PO
[2019-08-22 11:17] LABS: PROTHROMBIN TIME PATIENT 12.8 SEC (11.7-14.0)
[2019-08-22 11:39] LABS: ALBUMIN 3.3 g/dL (3.4-5.0); CALCIUM 8.9 mg/dL (8.5-10.1); CREATININE 0.8 mg/dL (0.6-1.0); GFR 69.7; POTASSIUM 4.3 mmol/L (3.5-5.1)
[2019-08-23 04:09] LABS: HEMOGLOBIN A1C 6.1 % (4.8-5.6)
== END ==
LOC: SURGPAT 09:47
PROVIDERS: ATTEND Orthopaedic Surgery
DX: Z01.818 Encounter for other preprocedural examination (principal); Z11.59 Encounter for screening for other viral diseases; S82.021A Displaced longitudinal fracture of right patella, initial encounter for closed fracture; X58.XXXA Exposure to other specified factors, initial encounter; Y93.89 Activity, other specified; Y92.89 Other specified places as the place of occurrence of the external cause; Y99.8 Other external cause status
CPT/HCPCS: 36415; 80048; 82040; 82306; 83036; 85610; 85730; 86140; 87641; U0003

== ENCOUNTER 2019-08-27 10:38 | Inpatient (IN) | payer OTHER, MEDICARE ==
[2019-08-27] VITALS (7 sets, daily range): BP systolic 144–161; BP diastolic 70–80
[~2019-08-27 10:38] MED LIST changes: +ACETAMINOPHEN 500 MG TABLET PO PRN; +CELECOXIB 100 MG CAPSULE. PO ONE; +HYDROmorphone 2 MG/ML VIAL IV PRN; +IV RINGERS,LACTATED 1000ML 1,000 ML IV SCH; +MORPHINE SULFATE 2 MG/ML VIAL. IV PRN; +PROCHLORPERAZINE 10 MG/2 ML VIAL. IV PRN; +TRANEXAMIC ACID 1,000 MG in IV NS 50ML -- 1ST BAG INJ ONE; +TRANEXAMIC ACID 1,000 MG in IV NS 50ML -- 2ND BAG INJ ONE; +fentaNYL PF VIAL 100 MCG/2 ML VIAL IV PRN
--- NOTE | 2019-08-27 11:11 | PDOC1 ---
History and Physical Date of Admission Date of Admission DATE: 08/27/19 TIME: 11:02 Identification/Chief Complaint Chief Complaint Right knee giving way Source Source: Chart review, Patient History of Present Illness History of Present Illness Neli is a 74-year-old established patient who had right total knee arthroplasty by me on 03/05/2019. The initial portion of her recovery after total knee arthroplasty was uncomplicated. She describes a spontaneous onset of pain in June without injury. Patient describes bucking and giving out of her knee with associated pain. She is ambulating with a cane. There has been no evidence of infection. X-rays show a displaced patella fracture and possible underlying avascular necrosis. The radiograph differential includes infection but there are no symptoms of that. C-reactive protein is nearly normal at 4.0, barely elevated, and that number would be more consistent with patella fracture inflammation than with any sort of infection. Past Medical History Cardiovascular: AFIB, CHF, Valve insufficiency Pulmonary: Other Hepatobiliary: No pertinent hx Endocrine: Other Past Surgical History Past Surgical History: Hernia Repair, Hysterectomy Family History Family History: Hypertension, Stroke Social History ALCOHOL: none Drugs: None Current Medications Current Medications Current Medications Fentanyl Citrate (Fentanyl 2ml Vial) 25 mcg PRN Q5MIN PRN IV MILD PAIN 1-3; Start 08/27/19 at 07:00; Stop 08/28/19 at 06:59 Fentanyl Citrate (Fentanyl 2ml Vial) 50 mcg PRN Q5MIN PRN IV MODERATE TO SEVERE PAIN; Start 08/27/19 at 07:00; Stop 08/28/19 at 06:59 Morphine Sulfate (Morphine Sulfate) 1 mg PRN Q10MIN PRN IV SEVERE PAIN 7-10; Start 08/27/19 at 07:00; Stop 08/28/19 at 06:59 Ringer's Solution 1,000 ml @ 30 mls/hr Q24H IV ; Start 08/27/19 at 07:00; Stop 08/27/19 at 18:59 Hydromorphone HCl (Dilaudid) 0.5 mg PRN Q10MIN PRN IV SEV PAIN, Second choice; Start 08/27/19 at 07:00; Stop 08/28/19 at 06:59 Prochlorperazine Edisylate (Compazine) 5 mg PACU PRN PRN IV NAUSEA, MRX1; Start 6/23/20 at 07:00; Stop 08/28/19 at 06:59 Celecoxib (CeleBREX) 400 mg ONCE ONCE PO ; Start 08/27/19 at 06:00; Stop 08/27/19 at 06:01; Status DC Acetaminophen (Tylenol) 1,000 mg 1X PREOP PRN PO PRIOR TO PROCEDURE; Start 08/27/19 at 06:00; Stop 08/27/19 at 18:00 Cefazolin Sodium/ Dextrose 50 ml @ 100 mls/hr 1X PREOP PRN IV PRIOR TO PROCEDURE; Start 08/27/19 at 06:00; Stop 08/27/19 at 18:00 Tranexamic Acid 1000 mg/Sodium Chloride 60 ml @ 60 mls/hr 1X PERIOP ONCE INJ ; Start 08/27/19 at 06:00; Stop 08/27/19 at 06:59; Status DC Tranexamic Acid 1000 mg/Sodium Chloride 60 ml @ 60 mls/hr 1X PERIOP ONCE INJ ; Start 08/27/19 at 08:00; Stop 08/27/19 at 08:59; Status DC Active Scripts Active Aspirin 81 Mg Tab.chew 81 Mg PO DAILY 30 Days Take 81 mg (low-dose) aspirin by mouth twice a day for 30 days, then resume your normal 81 mg aspirin daily. Flecainide Acetate 50 Mg Tablet 100 Mg PO Q12HR 60 Days Reported Klor-Con 10 (Potassium Chloride) 10 Meq Tablet.er 10 Meq PO BID Metoprolol Succinate ( Xl ) (Metoprolol Succinate) 25 Mg Tab.er.24h 12.5 Mg PO DAILY Vitamin D3 (Cholecalciferol (Vitamin D3)) 10,000 Unit Capsule 5,000 Unit PO DAILY Furosemide 20 Mg Tablet 1 Tab PO DAILY Allergies Allergies: Coded Allergies: No Known Drug Allergies (Unverified , 03/05/19) ROS Review of System Gen. denies chills, fevers HEENT no recent sore throat or earaches Cardiac no chest pain, occasional palpitations Respiratory no productive cough or wheezing GI rectal bleeding, no nausea or vomiting no increased frequency or dysuria Musculoskeletal chronic joint pain, occasional muscle aches Psych no anxiety or depression Neuro denies headaches or visual changes Endocrine no cold intolerance or unexplained weight loss or gain. Physical Exam General: Alert, Cooperative HEENT: Atraumatic Lungs: Normal air movement Heart: RRR Abdomen: Soft Extremities: Other (The RIGHT knee shows a well-healed total knee scar, without drainage or ulcers. There is normal alignment. Small palpable defect to the patella. Her extensor mechanism is at least partially intact. No effusion. No tenderness to palpation. Range of motion is 3-120 degrees, with typical total knee crepitus but no pain at the extremes of motion. There is a slight extensor lag. Pain and weakness with resisted knee extension. The knee is stable to varus and valgus stress without subluxation but trace laxity. Muscle strength is normal for hamstrings, and muscle tone is normal. There is quadriceps weakness with resisted knee extension. The skin shows a well-healed midline scar from total knee arthroplasty and no other lesions or rashes. Light touch sensation is intact. No edema and no varicosities. Dorsalis pedis pulse is intact and capillary refill is normal) Skin: No breakdown Neuro: Normal speech, Normal tone, Sensation intact Psych/Mental Status: Mental status NL, Mood NL Vitals Vitals Vital Signs Date Time Temp Pulse Resp B/P (MAP) Pulse Ox O2 Delivery O2 Flow Rate FiO2 08/22/19 10:34 97.9 63 20 96 97.9 Images Images [facility] [address] [place] [address] IMAGING REPORT Signed PATIENT: NELI ROD ACCOUNT: [id number] : 1945 LOCATION: [facility] AGE: 74 SEX: F EXAM STATUS: REG CLI ORD. PHYSICIAN: AKIN AGUERO MD REASON: PROCEDURE: KNEE RIGHT 2V Examination: 1. Bilateral standing AP knees. 2. Right knee 2 views INDICATION: Right knee buckling. Status post right knee replacement 02/22/2019 COMPARISON: Bilateral knee x-rays of 03/18/2019 and right knee x-rays of 03/18/2019. FINDINGS: The AP standing view of both knees again shows a right total knee arthroplasty in stable, anatomic alignment. In the interval, a fracture at the inferior pole of the patella may have developed with new ossific density projecting over the joint space. In addition, ossific density distal to the medial femoral condyle are prosthesis remains present. The lateral and sunrise views of the right knee show more obviously the fracture of the inferior pole patella with patellar eli. The patella appears more sclerotic in the interval. There is also moderate diffuse right knee soft tissue swelling. IMPRESSION: Right knee arthroplasty with interval fracture of the inferior pole patella. Cannot exclude a pathologic fracture such as from changes of infection or avascular necrosis. Recommend clinical correlation. Discussed with Dr. Akin Aguero by telephone at 4:15 PM on 08/15/2019 Electronically signed by: Russ Chaudhry MD (08/15/2019 4:16 PM) [id number] VTE Prophylaxis Ordered VTE Prophylaxis Devices: No VTE Pharmacological Prophylaxi: Yes Assessment/Plan Assessment/Plan Her x-rays show a fracture of her patella. 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 We reviewed her radiographs together and discussed the natural history of the condition as well as a variety of treatment options. For today, I recommended surgery with ORIF of her patella and suture augmentation. We discussed potential risks of ORIF surgery, including risks of bleeding, blood clots, infection, malunion, nonunion, extensor lag, potential need for hardware removal, neurovascular injury, tendon injury or other potential surgical or anesthetic complications. We also discussed postoperative treatment and expectations. All of her questions were answered and she desires to proceed with surgery. She is here today for ORIF of the right patella and I will likely do some augmentation possibly with allograft due to the underlying knee replacement. Justicifation of Admission Dx: Justifications for Admission: Justification of Admission Dx: N/A AKIN AGUERO MD Aug 27, 2019 11:11
[2019-08-27] MEDS ORDERED: ceFAZolin 2GM PREMIX 2 GM/50 ML BAG IV ONE (14:00)
[2019-08-27] MEDS ORDERED: BUPIVACAINE-EPI 0.25%-1:200000 MPF 30 ML VIAL. ONE (14:16)
[2019-08-27] MEDS ORDERED: DEXAMETHASONE SOD PHOS 4 MG/ML VIAL ONE (14:31)
[2019-08-27] MEDS ORDERED: LIDOCAINE 1% PF 5 ML VIAL. ONE (14:31)
[2019-08-27] MEDS ORDERED: PROPOFOL 10 MG/ML (20ML) VIAL. IV ONE (14:31)
[2019-08-27] MEDS ORDERED: ONDANSETRON PF 4 MG/2 ML VIAL. ONE (14:31)
[2019-08-27] MEDS ORDERED: fentaNYL PF VIAL 100 MCG/2 ML VIAL ONE (14:31)
[2019-08-27] MEDS ORDERED: ROCURONIUM 100 MG/10 ML VIAL. ONE (14:33)
[2019-08-27] MEDS ORDERED: ePHEDrine PF IN SALINE 50 MG/10 ML SYRINGE. IV ONE (14:34)
[2019-08-27] MEDS ORDERED: PHENYLEPHRINE in 0.9% NACL PF 1 MG/10 ML SYRINGE. IV ONE (14:34)
[2019-08-27] MEDS ORDERED: GLYCOPYRROLATE 1 MG/5 ML VIAL. ONE (15:00)
[2019-08-27] MEDS ORDERED: NEOSTIGMINE 10 MG/10 ML VIAL. ONE (15:52)
--- NOTE | 2019-08-27 16:29 | PDOC4 ---
Operative Note Operative Note Date of Procedure: August 27, 2019 Pre-Op Diagnosis: Displaced transverse fracture of right patella, initial encounter for closed fracture - S82.031A Post-Op Diagnosis: Displaced transverse fracture of right patella, initial encounter for closed fracture - S82.031A Procedure: Right knee open treatment of patella fracture with internal fixation and soft tissue repair CPT 78337 Surgeon: Akin Aguero MD Forging Press Operator: PETER Anderson Anesthesia: General EBL: 50 mL Specimens Obtained: none Complications: none Drains: none Tourniquet: 37 minutes at 300 mmHg Findings: Avascular bone at the distal pole of the patella. No evidence of infe ction. Benign-appearing synovial fluid. Stable patellar implant. Indications for Procedure: This patient is a 74 -year-old who had a right total knee arthroplasty at the end of 2018. She has been doing well with recovery until about 1-2 months ago when she noted some giving way of her knee. She denies any fall or new injury. X-rays show a displaced transverse patella fracture and some abnormal bone at the distal pole of the patella that appears avascular. Her CRP is 4.0 and this does not appear infected clinically. I recommended internal fixation of her patella, and augmentation due to the underlying total knee arthroplasty, as I suspect this is related to avascular necrosis of the patella or other failure of biology. I think the prognosis of this is worse than the typical patella fracture caused traumatically and I recommended additional fixation as a result. I spoke to her about the risk and benefits of surgery, and the potential risks of infection, stiffness, bleeding, blood clots, failure of fixation, continued pain or weakness, extensor lag, neurovascular injury or other potential surgical or anesthetic complications. All of her questions about surgery were answered and she desired to proceed. Written consent was obtained. Procedure in Detail: The patient was identified in the preoperative holding area. The correct right lower extremity was marked by me. The patient was taken to the operating room where general anesthetic was used. The patient was positioned supine on the operating table. A tourniquet was applied to the upper portion of the limb. Preoperative antibiotics were given intravenously. A timeout procedure was performed. The limb was prepared in sterile fashion circumferentially from the tourniquet to the toes and sterile drapes were applied. An impervious stockinette and an Ioban drape were used such that the skin was entirely covered. The operating team wore the personal exhaust ventilated hoods. An Esmarch bandage was used to exsanguinate the limb and the tourniquet was inflated. The prior midline incision was used. A scalpel was used for sharp skin dissection, and continued into the subcutaneous layer. Bovie electrocautery was used for hemostasis. There was some bridging scar tissue between the remnants of the patella, but the palpable defect was noted. I incised the defect longitudinally and benign synovial knee fluid was identified. Ultimately I removed some of the scar tissue which had developed between the inferior patellar fragments and the main patellar bone. There was an edge of the patellar bone that appears avascular, at the level of the implant, however the implant is quite stable, and I could not even slide under the patellar polyethylene implant with a 15 blade scalpel. The cemented fixation of that imp lant appears quite secure despite areas of bone which do not appear to have blood flow. Much of the patella does have blood flow and appears vascular and viable. It is unclear to me why she has developed this area of avascular necrosis. From my impression at surgery the area of bone is simply about a centimeter in diameter at the inferior pole of the patella, closest to the cement and polyethylene implant. I could not dislodge or find any gap between the cemented patellar implant and the remaining bone when I used a 15 blade scalpel to examine the interface. Soft tissue repair was performed which creates the internal fixation for the patella fracture. I used two #5 FiberWire sutures, in a running locking Krakw fashion in the patellar tendon. The fragments of bone were left intact as markers for the repair. A medial suture was placed with a central and medial tail, and a lateral suture was placed with a central and lateral tail. Three bone tunnels were drilled in the patella with 1/8 inch drill bit starting at the inferior pole of the patella and extending out the superior cortex. My carpenter's assistant Tomás passed a Hewson suture passer back through the bone tunnel, and the tails of the suture were passed through the bone tunnels for secure transosseous repair. Tomás held the reduction of the inferior fragments to the patella and I tied the sutures over the bone bridges for the preliminary internal fixation. Nex,t Arthrex fiber tapes were placed for additional security of that initial fixation with 2 medial sutures in a running Krakw fashion in the distal quadriceps tendon, and 2 lateral sutures in a running Krakw fashion in the distal quadriceps tendon. 4 medial tails and 4 lateral tails were then brought down to the tibial tubercle. These were tensioned by Tomás while I placed the anchors. Swivel lock anchors were then used in the tibial tubercle, 1 medial and 1 lateral, with 4 medial suture tails secured by the medial anchor and 4 lateral suture tails secured by the lateral anchor. This applies additional internal fixation to secure the repair, particularly since the portion of the bone at the primary repair is avascular. Finally due to the apparent avascular necrosis, I placed Arthrex Amnion Matrix over the repair and area of avascular bone. This should both strengthen and protect the repair, and prevent skin adhesion to the underlying fixation. The amnion matrix was sutured over the top of the area of avascular necrosis, and secured at the corners and edges using #2-0 Vicryl simple sutures. The tourniquet was released. Bovie electrocautery was used for hemostasis. The skin edges were injected with 30 mL's of 0.25% bupivacaine with epinephrine. The incision was closed in layers. I used 0 Vicryl and #1 Vicryl in the deep fascia. Tomás repaired the subcutaneous tissues with 2-0 Vicryl inverted interrupted sutures. He repaired the skin with #3-0 Monocryl Stratafix. A UMA dressing was applied. A knee immobilizer with the knee in full extension was applied. Needle and sponge counts were correct. There were no apparent complications. AKIN AGUERO MD Aug 27, 2019 16:29
[2019-08-27] MEDS ORDERED: IV NORMAL SALINE 1000ML BAG 1,000 ML IV SCH (16:34)
[2019-08-27] MEDS ORDERED: diphenhydrAMINE 50 MG/ML VIAL IVP PRN (16:45)
[2019-08-27] MEDS ORDERED: MORPHINE SULFATE 4 MG/ML VIAL. IVP PRN (16:45)
[2019-08-27] MEDS ORDERED: DEXTROSE 50% 25 GM / 50ML DISP.SYRIN. IV PRN (16:45)
[2019-08-27] MEDS ORDERED: METOCLOPRAMIDE HCL 10 MG/2 ML VIAL. IVP PRN (16:45)
[2019-08-27] MEDS ORDERED: MORPHINE SULFATE 2 MG/ML VIAL. IVP PRN (16:45)
[2019-08-27] MEDS ORDERED: CALCIUM CARBONATE 500 MG TAB.CHEW PO PRN (16:45)
[2019-08-27] MEDS ORDERED: oxyCODONE/APAP 5/325 1 TAB TABLET PO PRN (16:45)
[2019-08-27] MEDS ORDERED: fentaNYL PF VIAL 100 MCG/2 ML VIAL IVP PRN ×2 (16:45)
[2019-08-27] MEDS ORDERED: PROCHLORPERAZINE 5 MG TABLET. PO PRN (16:45)
[2019-08-27] MEDS ORDERED: ZOLPIDEM 5 MG TABLET. PO PRN (16:45)
[2019-08-27] MEDS ORDERED: 0.9 % SODIUM CHLORIDE 10 ML DISP.SYRIN. IV PRN (16:45)
[2019-08-27] MEDS ORDERED: IV RINGERS,LACTATED 1000ML 1,000 ML IV SCH (16:59)
[2019-08-27] MEDS ORDERED: LIDOCAINE 1% PF 2 ML VIAL. ID PRN (17:00)
[2019-08-27] MEDS ORDERED: HYDROmorphone 2 MG/ML VIAL IV PRN (17:00)
[2019-08-27] MEDS ORDERED: fentaNYL PF VIAL 100 MCG/2 ML VIAL IV PRN ×2 (17:00)
[2019-08-27] MEDS ORDERED: MORPHINE SULFATE 2 MG/ML VIAL. IV PRN (17:00)
[2019-08-27] MEDS ORDERED: PROCHLORPERAZINE 10 MG/2 ML VIAL. IV PRN (17:00)
[2019-08-27] MEDS ORDERED: ONDANSETRON PF 4 MG/2 ML VIAL. IV PRN (17:00)
--- NOTE | 2019-08-27 17:35 | RAD ---
EXAM: AP and lateral views right knee DATE: 08/27/2019 4:34 PM INDICATION: Right knee arthroplasty COMPARISON: 08/15/2019 FINDINGS/ IMPRESSION: Changes of right total knee arthroplasty are again seen. A transverse periprosthetic fracture about the patellar component is now reduced with good approximation of the principal fracture fragments. Electronically signed by: Germain Valiente MD (08/27/2019 5:32 PM) MAVIS
[2019-08-27] MEDS: ONDANSETRON ODT 4 MG TAB.RAPDIS. PO SCH (18:00)
[2019-08-27] MEDS: ONDANSETRON PF 4 MG/2 ML VIAL. IVP SCH (18:00)
[2019-08-27] MEDS: ASPIRIN ENTERIC COATED 325 MG TABLET.DR. PO SCH (21:05)
[2019-08-27] MEDS: FLECAINIDE ACETATE 50 MG TABLET. PO SCH (21:06)
[2019-08-28 03:00] VITALS: BP_SYST 139; BP_SYST 86; BP_DIAS 70
[2019-08-28 05:37] LABS: BASO % 0 % (0-3); EOS % 0 % (0-3); HEMATOCRIT 38.1 % (36.0-47.0); HEMOGLOBIN 12.7 g/dL (12.0-15.5); LYMPH # 0.4 x10^3/uL (1.0-4.8); LYMPH % 8 % (24-48); MEAN CORPUSCULAR HEMOGLOBIN 30 pg (25-35); MEAN CORPUSCULAR HGB CONC 34 g/dL (31-37); MEAN CORPUSCULAR VOLUME 88 fL (79-100); MONO # 0.5 x10^3/uL (0.0-1.1); MONO % 8 % (0-9); NEUT # 4.8 x10^3/uL (1.8-7.7); NEUT % 84 % (31-73); PLATELET COUNT 184 x10^3/uL (140-400); RED CELL DISTRIBUTION WIDTH 14.7 % (11.5-14.5); WHITE BLOOD COUNT 5.7 x10^3/uL (4.0-11.0)
[2019-08-28 05:48] LABS: CALCIUM 8.5 mg/dL (8.5-10.1); CREATININE 0.7 mg/dL (0.6-1.0); GFR 81.4; POTASSIUM 4.3 mmol/L (3.5-5.1)
[2019-08-28] MEDS ORDERED: MAGNESIUM HYDROXIDE 2,400 MG/30 ML ORAL.SUSP. PO PRN (06:00)
[2019-08-28] MEDS: ONDANSETRON ODT 4 MG TAB.RAPDIS. PO SCH ×3 (06:00→11:15)
[2019-08-28] MEDS: ONDANSETRON PF 4 MG/2 ML VIAL. IVP SCH ×3 (06:00→11:15)
--- NOTE | 2019-08-28 06:32 | NUR ---
pt had ORIF R knee Patella Fx patient refused nausea meds stated not nauseus offer pain meds rating pain between 3-4 stated dont need pain meds
[2019-08-28 07:00] VITALS: BP 132/74
[2019-08-28] MEDS: SENNOSIDES/DOCUSATE 8.6/50MG TABLET. PO SCH (08:07)
[2019-08-28] MEDS: FLECAINIDE ACETATE 50 MG TABLET. PO SCH ×2 (08:07→21:20)
[2019-08-28] MEDS: MULTIVITAMIN with MINERAL TABLET. PO SCH (08:08)
[2019-08-28] MEDS: FUROSEMIDE 20 MG TABLET PO SCH (08:08)
[2019-08-28] MEDS: CHOLECALCIFEROL (VITAMIN D3) 5,000 UNIT CAPSULE PO SCH (08:08)
[2019-08-28] MEDS: ASPIRIN ENTERIC COATED 325 MG TABLET.DR. PO SCH ×2 (08:08→21:20)
[2019-08-28] MEDS ORDERED: METOPROLOL SUCC 24HR ER 25 MG TAB.ER.24H. PO SCH (09:00)
--- NOTE | 2019-08-28 09:00 | PDOC ---
PROGRESS NOTES Subjective Subjective Doing well, although having difficulty transferring in the knee immobilizer. Objective Vital Signs Vital Signs Date Time Temp Pulse Resp B/P (MAP) Pulse Ox O2 Delivery O2 Flow Rate FiO2 08/28/19 08:08 72 132/74 08/28/19 07:00 98.3 16 95 Room Air 98.3 08/27/19 16:40 10 Physical Exam The knee immobilizer is intact. The calf is soft and nontender. The dressing is dry. The Pretty dressing is intact. The knee is in full extension as expected. Labs Laboratory Tests Test 08/28/19 04:45 White Blood Count 5.7 x10^3/uL (4.0-11.0) Red Blood Count 4.30 x10^6/uL (3.50-5.40) Hemoglobin 12.7 g/dL (12.0-15.5) Hematocrit 38.1 % (36.0-47.0) Mean Corpuscular Volume 88 fL (79-100) Mean Corpuscular Hemoglobin 30 pg (25-35) Mean Corpuscular Hemoglobin Concent 34 g/dL (31-37) Red Cell Distribution Width 14.7 % (11.5-14.5) Platelet Count 184 x10^3/uL (140-400) Neutrophils (%) (Auto) 84 % (31-73) Lymphocytes (%) (Auto) 8 % (24-48) Monocytes (%) (Auto) 8 % (0-9) Eosinophils (%) (Auto) 0 % (0-3) Basophils (%) (Auto) 0 % (0-3) Neutrophils # (Auto) 4.8 x10^3/uL (1.8-7.7) Lymphocytes # (Auto) 0.4 x10^3/uL (1.0-4.8) Monocytes # (Auto) 0.5 x10^3/uL (0.0-1.1) Eosinophils # (Auto) 0.0 x10^3/uL (0.0-0.7) Basophils # (Auto) 0.0 x10^3/uL (0.0-0.2) Sodium Level 137 mmol/L (136-145) Potassium Level 4.3 mmol/L (3.5-5.1) Chloride Level 102 mmol/L (98-107) Carbon Dioxide Level 25 mmol/L (21-32) Anion Gap 10 (6-14) Blood Urea Nitrogen 15 mg/dL (7-20) Creatinine 0.7 mg/dL (0.6-1.0) Estimated GFR (Cockcroft-Gault) 81.4 Glucose Level 129 mg/dL (70-99) Calcium Level 8.5 mg/dL (8.5-10.1) Laboratory Tests Test 08/28/19 04:45 White Blood Count 5.7 x10^3/uL (4.0-11.0) Red Blood Count 4.30 x10^6/uL (3.50-5.40) Hemoglobin 12.7 g/dL (12.0-15.5) Hematocrit 38.1 % (36.0-47.0) Mean Corpuscular Volume 88 fL (79-100) Mean Corpuscular Hemoglobin 30 pg (25-35) Mean Corpuscular Hemoglobin Concent 34 g/dL (31-37) Red Cell Distribution Width 14.7 % (11.5-14.5) Platelet Count 184 x10^3/uL (140-400) Neutrophils (%) (Auto) 84 % (31-73) Lymphocytes (%) (Auto) 8 % (24-48) Monocytes (%) (Auto) 8 % (0-9) Eosinophils (%) (Auto) 0 % (0-3) Basophils (%) (Auto) 0 % (0-3) Neutrophils # (Auto) 4.8 x10^3/uL (1.8-7.7) Lymphocytes # (Auto) 0.4 x10^3/uL (1.0-4.8) Monocytes # (Auto) 0.5 x10^3/uL (0.0-1.1) Eosinophils # (Auto) 0.0 x10^3/uL (0.0-0.7) Basophils # (Auto) 0.0 x10^3/uL (0.0-0.2) Sodium Level 137 mmol/L (136-145) Potassium Level 4.3 mmol/L (3.5-5.1) Chloride Level 102 mmol/L (98-107) Carbon Dioxide Level 25 mmol/L (21-32) Anion Gap 10 (6-14) Blood Urea Nitrogen 15 mg/dL (7-20) Creatinine 0.7 mg/dL (0.6-1.0) Estimated GFR (Cockcroft-Gault) 81.4 Glucose Level 129 mg/dL (70-99) Calcium Level 8.5 mg/dL (8.5-10.1) Imaging Report reviewed and images independently reviewed. Satisfactory extensor mechanism reconstruction. [facility] [address] [place] [address] IMAGING REPORT Signed PATIENT: NELI ROD ACCOUNT: [id number] : 1945 LOCATION: [address] [place] [address] AGE: 74 SEX: F EXAM STATUS: ADM IN ORD. 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 A transverse periprosthetic fracture about the patellar component is now reduced with good approximation of the principal fracture fragments. Electronically signed by: Germain Valiente MD (08/27/2019 5:32 PM) [facility] DICTATED and SIGNED BY: GERMAIN VALIENTE MD DATE: 08/27/19 1732 Assessment Assessment Postoperative day 1 after extensor mechanism repair/reconstruction with graft. Plan Plan of Care Continue IV antibiotics today. Occasionally still using IV pain medicines. Unable to transfer safely to a chair or toilet at this time, but presumably with therapy today will be ready for discharge tomorrow. Justicifation of Admission Dx: Justifications for Admission: Justification of Admission Dx: Yes Fracture: Fracture AKIN PAK MD Aug 28, 2019 09:00
[2019-08-28 11:00] VITALS: BP 140/59
[2019-08-28] MEDS ORDERED: ONDANSETRON PF 4 MG/2 ML VIAL. IVP PRN (12:00)
[2019-08-28] MEDS ORDERED: ONDANSETRON ODT 4 MG TAB.RAPDIS. PO PRN (12:00)
[2019-08-28 15:00] VITALS: BP 142/60
[2019-08-28] MEDS ORDERED: BISACODYL 10 MG SUPP.RECT. PR PRN (16:00)
[2019-08-28] MEDS: POTASSIUM CHLORIDE 10 MEQ TABLET.ER. PO SCH (17:00)
[2019-08-28] MEDS: ACETAMINOPHEN 500 MG TABLET PO PRN (18:28)
[2019-08-28 19:00] VITALS: BP 151/69
[2019-08-28] MEDS ORDERED: CELECOXIB 100 MG CAPSULE. PO SCH (21:00)
[2019-08-28] MEDS: DOCUSATE SODIUM 100 MG CAPSULE. PO SCH (22:20)
[2019-08-28] MEDS: METOPROLOL SUCC 24HR ER 25 MG TAB.ER.24H. PO SCH (22:21)
[2019-08-28 23:00] VITALS: BP 138/67
[2019-08-29 05:08] LABS: HEMATOCRIT 35.4 % (36.0-47.0); HEMOGLOBIN 11.9 g/dL (12.0-15.5)
[2019-08-29 07:15] VITALS: BP 162/69
[2019-08-29] MEDS: POTASSIUM CHLORIDE 10 MEQ TABLET.ER. PO SCH (08:00)
[2019-08-29] MEDS: FUROSEMIDE 20 MG TABLET PO SCH (08:42)
[2019-08-29] MEDS: ASPIRIN ENTERIC COATED 325 MG TABLET.DR. PO SCH (08:42)
[2019-08-29] MEDS: ACETAMINOPHEN 500 MG TABLET PO PRN (08:42)
[2019-08-29] MEDS: FLECAINIDE ACETATE 50 MG TABLET. PO SCH (08:43)
[2019-08-29] MEDS: MULTIVITAMIN with MINERAL TABLET. PO SCH (08:43)
[2019-08-29] MEDS: SENNOSIDES/DOCUSATE 8.6/50MG TABLET. PO SCH (08:43)
[2019-08-29] MEDS: METOPROLOL SUCC 24HR ER 25 MG TAB.ER.24H. PO SCH (08:43)
[2019-08-29] MEDS: DOCUSATE SODIUM 100 MG CAPSULE. PO SCH (08:43)
[2019-08-29] MEDS: CHOLECALCIFEROL (VITAMIN D3) 5,000 UNIT CAPSULE PO SCH (08:43)
[2019-08-29 11:03] VITALS: BP 142/64
--- NOTE | 2019-08-29 13:06 | PDOC ---
PROGRESS NOTES Subjective Subjective Doing ok. Doesn't like brace. Objective Vital Signs Vital Signs Date Time Temp Pulse Resp B/P (MAP) Pulse Ox O2 Delivery O2 Flow Rate FiO2 08/29/19 11:03 98.3 71 20 142/64 (90) 97 Room Air 98.3 08/27/19 16:40 10 Physical Exam Spotty drainage on dressing. Calf soft and nontender. Homans negative. Toes NVI. Labs Laboratory Tests Test 08/28/19 04:45 08/29/19 04:25 White Blood Count 5.7 x10^3/uL (4.0-11.0) Red Blood Count 4.30 x10^6/uL (3.50-5.40) Hemoglobin 12.7 g/dL (12.0-15.5) 11.9 g/dL (12.0-15.5) Hematocrit 38.1 % (36.0-47.0) 35.4 % (36.0-47.0) Mean Corpuscular Volume 88 fL (79-100) Mean Corpuscular Hemoglobin 30 pg (25-35) Mean Corpuscular Hemoglobin Concent 34 g/dL (31-37) 34 g/dL (31-37) Red Cell Distribution Width 14.7 % (11.5-14.5) Platelet Count 184 x10^3/uL (140-400) Neutrophils (%) (Auto) 84 % (31-73) Lymphocytes (%) (Auto) 8 % (24-48) Monocytes (%) (Auto) 8 % (0-9) Eosinophils (%) (Auto) 0 % (0-3) Basophils (%) (Auto) 0 % (0-3) Neutrophils # (Auto) 4.8 x10^3/uL (1.8-7.7) Lymphocytes # (Auto) 0.4 x10^3/uL (1.0-4.8) Monocytes # (Auto) 0.5 x10^3/uL (0.0-1.1) Eosinophils # (Auto) 0.0 x10^3/uL (0.0-0.7) Basophils # (Auto) 0.0 x10^3/uL (0.0-0.2) Sodium Level 137 mmol/L (136-145) Potassium Level 4.3 mmol/L (3.5-5.1) Chloride Level 102 mmol/L (98-107) Carbon Dioxide Level 25 mmol/L (21-32) Anion Gap 10 (6-14) Blood Urea Nitrogen 15 mg/dL (7-20) Creatinine 0.7 mg/dL (0.6-1.0) Estimated GFR (Cockcroft-Gault) 81.4 Glucose Level 129 mg/dL (70-99) Calcium Level 8.5 mg/dL (8.5-10.1) 25-Hydroxy Vitamin D Total 21.0 ng/mL (30-100) Laboratory Tests Test 08/29/19 04:25 Hemoglobin 11.9 g/dL (12.0-15.5) Hematocrit 35.4 % (36.0-47.0) Mean Corpuscular Hemoglobin Concent 34 g/dL (31-37) Assessment Assessment POD#2 after ORIF patella Plan Plan of Skilled Nursing today. Home health. Continue brace, no knee ROM, but may WBAT in brace. Aspirin for DVT prophylaxis. Tylenol for pain F/U Monday Justicifation of Admission Dx: Justifications for Admission: Justification of Admission Dx: Yes Fracture: Fracture AKIN PAK MD Aug 29, 2019 13:06
--- NOTE | 2019-08-29 13:11 | SNU/HH DC ---
DISCHARGE WITH HOME HEALTH DISCHARGE INFORMATION: Discharge Date: Aug 29, 2019 Final Diagnosis: patella fracture Condition on Discharge: Stable CODE STATUS: Code Status: Full HOME HEALTH: Face to Face: I certify this patient is under my care and that I, or a nurse practitioner or physician's library clerical assistant working with me, had a face to face encounter that meets the physician face to face encounter requirements with this patient on 08/29/2019. Medical Complications: S/P Joint Replacement RN For Eval/Treatment: No Physical Therapy For: Evalulation/Treatment Occupational Therapy For: Evaluation/Treatment Pt Meets Homebound Status: Poor coordination w/ amb., Limited distance walking POST DISCHARGE ORDERS: Activity Instructions for Disc: Activity as tolerated, Avoid exertion Weight Bearing Status after Di: As tolerated, Other, see below Bathing Instructions: Shower-keep dressing dry, No Tub Bath until see DIET AFTER DISCHARGE: Regular Wound/Incision Care: Ice to area for comfort, Do not change dressing Other wound/incision instructi: DO NOT change UMA dressing. It remains in place till your follow up appt. CHECKS AFTER DISCHARGE: Checks after discharge: Check blood press - daily, Check your Temp as needed FOLLOW-UP: Follow Up With: Dr Aguero on September 08 at 9:45am. [phone] Additional Instructions: Use brace at all times. No right knee ROM--leave knee straight at all times. May WBAT with knee straight in brace -- "pegleg" gait. Take EC-ASA 325 mgs po BID for 30 days, then resume your 81 mg daily aspirin. TREATMENT/EQUIPMENT ORDERS: Adaptive Equipment Issued: None CERTIFICATION STATEMENT: Certification Statement: Certification Statement: Based on the above finding, I certify that this patient is confined to the home and needs intermittent alf care, physical therapy and/or speech therapy, or continues to need occupational therapy.~ This patient is under my care, and I have initiated the establishment of the plan of care.~ This patient will be followed by myself or a community physician who will periodically review the plan of care. Home Meds Active Scripts Aspirin (ASPIRIN) 81 Mg Tab.chew, 81 MG PO DAILY for BLOOD THINNER for 30 Days, #30 TAB.CHEW Take 81 mg (low-dose) aspirin by mouth twice a day for 30 days, then resume your normal 81 mg aspirin daily. Prov:AKIN AGUERO MD 03/08/19 Flecainide Acetate (FLECAINIDE ACETATE) 50 Mg Tablet, 100 MG PO Q12HR for 60 Days, #240 TAB Prov:XI MCKAY MD 07/06/17 Reported Medications Potassium Chloride (Klor-Con 10) 10 Meq Tablet.er, 10 MEQ PO BID for SUPPLEMEMT, TAB.SR 08/22/19 Metoprolol Succinate (METOPROLOL SUCCINATE ( XL )) 25 Mg Tab.er.24h, 12.5 MG PO DAILY for FOR HYPERTENSION, #30 TAB 0 Refills 08/22/19 Cholecalciferol (Vitamin D3) (VITAMIN D3) 10,000 Unit Capsule, 5000 UNIT PO DAILY for SUPPLEMENT, CAP 02/12/19 Furosemide (FUROSEMIDE) 20 Mg Tablet, 1 TAB PO DAILY for water pill, #90 TAB 1 Refill 07/06/17 AKIN AGUERO MD Aug 29, 2019 13:11
--- NOTE | 2019-08-29 13:13 | PDOC3 ---
Discharge Summary Visit Information Date of Admission: Aug 27, 2019 Date of Discharge: Aug 29, 2019 Admitting Diagnosis: closed right patella fracture, transverse Brief Hospital Course Allergies Allergies Coded Allergies Type Severity Reaction Last Updated Verified No Known Drug Allergies 08/27/19 No Vital Signs Vital Signs Date Time Temp Pulse Resp B/P (MAP) Pulse Ox O2 Delivery O2 Flow Rate FiO2 08/29/19 11:03 98.3 71 20 142/64 (90) 97 Room Air 98.3 08/27/19 16:40 10 Lab Results Laboratory Tests Test 08/28/19 04:45 08/29/19 04:25 White Blood Count 5.7 x10^3/uL (4.0-11.0) Red Blood Count 4.30 x10^6/uL (3.50-5.40) Hemoglobin 12.7 g/dL (12.0-15.5) 11.9 g/dL (12.0-15.5) Hematocrit 38.1 % (36.0-47.0) 35.4 % (36.0-47.0) Mean Corpuscular Volume 88 fL (79-100) Mean Corpuscular Hemoglobin 30 pg (25-35) Mean Corpuscular Hemoglobin Concent 34 g/dL (31-37) 34 g/dL (31-37) Red Cell Distribution Width 14.7 % (11.5-14.5) Platelet Count 184 x10^3/uL (140-400) Neutrophils (%) (Auto) 84 % (31-73) Lymphocytes (%) (Auto) 8 % (24-48) Monocytes (%) (Auto) 8 % (0-9) Eosinophils (%) (Auto) 0 % (0-3) Basophils (%) (Auto) 0 % (0-3) Neutrophils # (Auto) 4.8 x10^3/uL (1.8-7.7) Lymphocytes # (Auto) 0.4 x10^3/uL (1.0-4.8) Monocytes # (Auto) 0.5 x10^3/uL (0.0-1.1) Eosinophils # (Auto) 0.0 x10^3/uL (0.0-0.7) Basophils # (Auto) 0.0 x10^3/uL (0.0-0.2) Sodium Level 137 mmol/L (136-145) Potassium Level 4.3 mmol/L (3.5-5.1) Chloride Level 102 mmol/L (98-107) Carbon Dioxide Level 25 mmol/L (21-32) Anion Gap 10 (6-14) Blood Urea Nitrogen 15 mg/dL (7-20) Creatinine 0.7 mg/dL (0.6-1.0) Estimated GFR (Cockcroft-Gault) 81.4 Glucose Level 129 mg/dL (70-99) Calcium Level 8.5 mg/dL (8.5-10.1) 25-Hydroxy Vitamin D Total 21.0 ng/mL (30-100) Laboratory Tests Test 08/29/19 04:25 Hemoglobin 11.9 g/dL (12.0-15.5) Hematocrit 35.4 % (36.0-47.0) Mean Corpuscular Hemoglobin Concent 34 g/dL (31-37) Brief Hospital Course 74 year old who presented with patella fracture, and previous total knee replacement. The patient underwent ORIF patella under general anesthesia the day of admission. Perioperative antibiotics and DVT prophylaxis were used. Postoperatively physical therapy and case management were consulted. The patient progressed and is stable for discharge. Discharge Information Condition at Discharge: Stable Follow Up: Weeks Disposition/Orders: D/C to Home w/ HH Scheduled Aspirin (Aspirin), 81 MG PO DAILY Cholecalciferol (Vitamin D3) (Vitamin D3), 5,000 UNIT PO DAILY, (Reported) Flecainide Acetate (Flecainide Acetate), 100 MG PO Q12HR Furosemide (Furosemide), 1 TAB PO DAILY, (Reported) Metoprolol Succinate (Metoprolol Succinate ( Xl )), 12.5 MG PO DAILY, (Reported) Potassium Chloride (Klor-Con 10), 10 MEQ PO BID, (Reported) Patient Instructions Patient Instructions Continue to weight bearing as tolerated with walker. Keep UMA dressing intact and dry. Follow up with Dr. Aguero's office Monday08/29/19. Call for appointment unless already scheduled. Continue enteric coated aspirin 325 mg by mouth twice a day for 30 days to prevent blood clots. Justicifation of Admission Dx: Justifications for Admission: Justification of Admission Dx: Yes Fracture: Fracture AKIN AGUERO MD Aug 29, 2019 13:13
--- NOTE | 2019-08-29 14:42 | NUR ---
Patient left the building with her granddaughter around 1440. Discharge education completed by this nurse and therapy. UMA instructions gone over in detail as well as instructions about the brace. She is supposed to be WBAT with the brace in extension at all times for six weeks. No ROM per Dr Aguero. Appointment scheduled for Monday for follow up in [facility]'s office. Instructions gone over in detail about aspirin and patient refused pain medication at discharge. No concerns noted at dismissal.
== END 2019-08-29 14:45 | disposition home health service (06) | DRG 516 ==
LOC: SURG 10:38 → 4 NORTH 16:39 → OBSVTOIN 08-28 14:28
PROVIDERS: ADMIT Orthopaedic Surgery; ATTEND Orthopaedic Surgery
PROC: 0QSD04Z Reposition Right Patella with Internal Fixation Device, Open Approach (ICD-10-PCS; principal; 2019-08-27 12:45)
DX: S82.031A Displaced transverse fracture of right patella, initial encounter for closed fracture (principal); M87.9 Osteonecrosis, unspecified; I48.91 Unspecified atrial fibrillation; I50.9 Heart failure, unspecified; Z96.651 Presence of right artificial knee joint; Z90.710 Acquired absence of both cervix and uterus; Z82.49 Family history of ischemic heart disease and other diseases of the circulatory system; Z82.3 Family history of stroke; Y93.89 Activity, other specified; Y92.89 Other specified places as the place of occurrence of the external cause; Y99.8 Other external cause status
CPT/HCPCS: 36415; 73560; 80048; 82306; 85014; 85018; 85025; 86850; 86900; 86901; G0378; G0379; J0696; J1100; J2370; J2405; J2704; J2710; J3010; J3490; J7030; 97110-GP; 97116-GP; 97530-GO; 97530-GP; 97535-GO

== ENCOUNTER → 2020-07-13 | Outpatient (CLI) | payer MEDICARE ==
[~2020-07-13] MED LIST changes: -ACETAMINOPHEN 500 MG TABLET PO PRN; -CELECOXIB 100 MG CAPSULE. PO ONE; -HYDROmorphone 2 MG/ML VIAL IV PRN; -IV RINGERS,LACTATED 1000ML 1,000 ML IV SCH; -MORPHINE SULFATE 2 MG/ML VIAL. IV PRN; -PROCHLORPERAZINE 10 MG/2 ML VIAL. IV PRN; +REGADENOSON 0.4 MG/5 ML DISP.SYRIN. IV ONE; -TRANEXAMIC ACID 1,000 MG in IV NS 50ML -- 1ST BAG INJ ONE; -TRANEXAMIC ACID 1,000 MG in IV NS 50ML -- 2ND BAG INJ ONE; -fentaNYL PF VIAL 100 MCG/2 ML VIAL IV PRN
[2020-07-13 09:36] LABS: BASO % 1 % (0-3); EOS # 0.1 x10^3/uL (0.0-0.7); EOS % 1 % (0-3); HEMATOCRIT 42.8 % (36.0-47.0); HEMOGLOBIN 14.2 g/dL (12.0-15.5); LYMPH # 0.7 x10^3/uL (1.0-4.8); LYMPH % 13 % (24-48); MEAN CORPUSCULAR HEMOGLOBIN 30 pg (25-35); MEAN CORPUSCULAR HGB CONC 33 g/dL (31-37); MEAN CORPUSCULAR VOLUME 91 fL (79-100); MONO # 0.4 x10^3/uL (0.0-1.1); MONO % 8 % (0-9); NEUT # 4.5 x10^3/uL (1.8-7.7); NEUT % 77 % (31-73); PLATELET COUNT 232 x10^3/uL (140-400); WHITE BLOOD COUNT 5.8 x10^3/uL (4.0-11.0)
[2020-07-13 09:47] LABS: ALBUMIN/GLOBULIN RATIO 1.1 (1.0-1.7); CREATININE 0.7 mg/dL (0.6-1.0); GFR 81.1; POTASSIUM 4.5 mmol/L (3.5-5.1); TOTAL BILIRUBIN 0.5 mg/dL (0.2-1.0); TOTAL PROTEIN 7.7 g/dL (6.4-8.2)
[2020-07-13 09:48] LABS: CHOLESTEROL/HDL RATIO 3.6
--- NOTE | 2020-07-13 16:39 | RAD ---
MR#: [id number] Date of Study: 07/13/2020 Ordering Physician: AVI ELDRIDGE, Referring Physician: LIBBY MCCLOUD Tech: RT Suzy SummersR) (N) APPROVED REPORT Test Type: Pharmacological Stress Nurse/Tech: Araceli Gonzalez RN Test Indications: paroxysmal atrial fibrillation Cardiac History: A-fib, HTN Medications: See Electronic Medical Record Medical History: See Electronic Medical Record Resting ECG: SR Resting Heart Rate: 63 bpm Resting Blood Pressure: 152/55mmHg Pretest Chest Pain: None Nurse/Tech Notes Lungs CTA, S1S2 Consent: The procedure was explained to the patient in lay terms. Informed consent was witnessed. Ajit eout was entered into [employer]. History and Stress Test performed by RT Suzy SummersR) (N) Pharm. Details Pharmacologic stress testing was performed using 0.4mg per 5ml of regadenoson given intravenously ove r 7-10 seconds. Stress Symptoms No chest pain or symptoms. POST EXERCISE Reason for Termination: Reached target heart rate, Arrhythmia, Infusion complete Max HR: 85 bpm Max Blood Pressure: 142/49mmHg Blood Pressure response to exercise: Normal blood pressure response during stress. Heart Rate response to exercise: normal response Chest Pain: No. Arrhythmia: No. ST Change: No. INTERPRETATION Stress EKG Conclusion: No evidence of stress induced EKG changes. Imaging Protocol IMAGE PROTOCOL: Rest Tc-99m/stress Tc-99m 1 day Rest: Stress: Viability: Radiopharm.Tc99m [id number] Sestamibi Dose10.5mCi 30.2mCi Duration 15min. 15min. Img Date 07/13/2020 07/13/2020 Inj-Img [id number]. 60min. Rest Admin Site:IV - Right AntecubitalAdministrator:RT Sheldon (R)(N) Stress Admin Site: IV - Right AntecubitalAdministrator: RT Sheldon (Dottie)(N) STRESS DATA End Diast. Vol.82.0mlAv. Heart Rate76.0bpm End Syst. Vol.9.0mlCO Index BSA0.0L/min Myocardial Qtiz936.0gEject. Kmyecjkc75.0% Stress Rates Pk. Fill Rate2.52EDV/secLVtime Pk. Fill 124.55msec Pk. Empty Rate3.69ESV/secLVtime Pk. Pekwu699.91msec / Pk. Fill1.66EDV/sec Stress Scores Regional WT0.00Summed WT0.00 Regional WM0.00Summed WM0.00 The rest and stress images show normal perfusion, normal contraction and thickening. LV Perf. Quant 17 Seg. SSS0.00 17 Seg. SRS0.00 17 Seg. SDS0.00 Stress Defect Extent (% LAD)0.00Rest Defect Extent (% LAD)0.00Rev. Defect Extent (% LAD)0.00 Stress Defect Extent (% LCX) 0.00Rest Defect Extent (% LCX)0.00Rev. Defect Extent (% LCX)0.00 Stress Defect Extent (% RCA)0.00Rest Defect Extent (% RCA)0.00Rev. Defect Extent (% RCA)0.00 Stress Defect Extent (% OSMANY)0.00Rest Defect Extent (% OSMANY)0.00Rev. Defect Extent (% OSMANY)0.00 Other Information Quality:Average Risk Assessment: Low Risk Conclusion 1. No evidence of EKG changes with stress testing. 2. Normal perfusion at stress/rest. 3. Low risk study. 4. EF > 60%. Signed by : Avi Eldridge, Electronically Approved : 07/13/2020 16:38:48
== END ==
LOC: NM 10:46
PROVIDERS: ATTEND Internal Medicine Cardiovascular Disease
DX: I48.0 Paroxysmal atrial fibrillation (principal); I10 Essential (primary) hypertension
CPT/HCPCS: 36415; 78452; 80053; 80061; 83721; 83880; 85025; 93017; A9500; J2785

== ENCOUNTER → 2021-07-19 | Outpatient (CLI) | payer MEDICARE ==
[~2021-07-19] MED LIST changes: +POTA-112 PO; +POTA-121 PO; -POTA10TA6 PO; -POTA20TA4 PO; -REGADENOSON 0.4 MG/5 ML DISP.SYRIN. IV ONE
--- NOTE | 2021-07-20 07:46 | CARD ---
MR#: [id number] Date of Study: 07/19/2021 Ordering Physician: AVI MARTINEZ, Referring Physician: AVI MARTINEZ, Tech: Libra Maher [facility] APPROVED REPORT EXAM: Two-dimensional and M-mode echocardiogram with Doppler and color Doppler. Other Information Quality : AverageHR: 60bpm Rhythm : NSR INDICATION Atrial Fibrillation 2D DIMENSIONS RVDd2.7 (2.9-3.5cm)Left Atrium(2D)3.2 (1.6-4.0cm) IVSd1.1 (0.7-1.1cm)Aortic Root(2D)2.7 (2.0-3.7cm) LVDd3.9 (3.9-5.9cm)LVOT Diameter2.0 (1.8-2.4cm) PWd1.1 (0.7-1.1cm)LVDs2.6 (2.5-4.0cm) FS (%) 34.4 %SV43.4 ml LVEF(%)64.1 (>50%) Aortic Valve AoV Peak Perfecto.172.9cm/sAoV VTI39.4cm AO Peak GR.12.0mmHgLVOT Peak Perfecto.80.4cm/s LVOT VTI 22.14cmAO Mean GR.6mmHg NIESHA (VMAX)1.93jq6DQV (VTI)1.76cm2 Mitral Valve MV E Lflathik87.7cm/sMV DECEL [id number] MV A Yxpcgqxh46.6cm/sMV BIN15uf E/A Ratio0.9MVA (PHT)3.45cm2 Pulmonary Valve PV Peak Timfgbff80.1cm/sPV Peak Grad.3mmHg LEFT VENTRICLE The left ventricle is normal size. There is normal left ventricular wall thickness. The left ventricu lar systolic function is normal. The Ejection Fraction is 60-65%. No regional wall motion abnormaliti es noted. The left ventricular diastolic function is normal. No left ventricle thrombus noted on this study. There is no ventricular septal defect visualized. There is no left ventricular aneurysm. Ther e is no mass noted in the left ventricle. RIGHT VENTRICLE The right ventricle is normal size. There is normal right ventricular wall thickness. The right ventr icular systolic function is normal. ATRIA The left atrium size is normal. The right atrium size is normal. The interatrial septum is intact wit h no evidence for an atrial septal defect or patent foramen ovale as noted on 2-D or Doppler imaging. AORTIC VALVE The aortic valve is normal in structure and function. No aortic regurgitation is present. There is no aortic valvular stenosis. There is no aortic valvular vegetation. MITRAL VALVE The mitral valve is normal in structure and function. There is no evidence of mitral valve prolapse. There is no mitral valve stenosis. There is no mitral valve regurgitation noted. TRICUSPID VALVE The tricuspid valve is normal in structure and function. There is no tricuspid valve regurgitation no jarad. There is no tricuspid valve prolapse or vegetation. There is no tricuspid valve stenosis. PULMONIC VALVE The pulmonary valve is normal in structure and function. There is no pulmonic valvular regurgitation. There is no pulmonic valvular stenosis. GREAT VESSELS The aortic root is normal in size. The ascending aorta is normal in size. The pulmonary artery is nor mal. The IVC is normal in size and collapses >50% with inspiration. PERICARDIAL EFFUSION There is no pleural effusion. There is no evidence of significant pericardial effusion. Critical Notification Critical Value: No <Conclusion> The left ventricular systolic function is normal. The Ejection Fraction is 60-65%. No regional wall motion abnormalities noted. There is no evidence of significant pericardial effusion. Signed by : Milton Prabhakar, Electronically Approved : 07/19/2021 16:06:02
== END ==
LOC: ECHO 12:49
PROVIDERS: ATTEND Internal Medicine Cardiovascular Disease
DX: I48.0 Paroxysmal atrial fibrillation (principal)
CPT/HCPCS: 93306; C8929